=== PATIENT | female | born 1940 | race Caucasian/White ===

== ENCOUNTER 2016-08-07 06:17 | Inpatient (IN) | payer MEDICARE, OTHER ==
[~2016-08-07] VITALS: Ht 160 cm; Wt 59.0 kg
[~2016-08-07 06:17] MED LIST: LOSA25TA4 PO
--- NOTE | 2016-08-07 06:41 | PHYS DOC ---
Past Medical History Past Medical History: Asthma, Other Additional Past Medical Histor: RESTLESS LEG Past Surgical History: Hysterectomy, Other Additional Past Surgical Histo: ANKLE Alcohol Use: Occasionally Drug Use: None Adult General Chief Complaint Chief Complaint: DYSPNEA/RESPIRATOY DISTRESS HPI HPI Patient is a 76 year old female who presents with complaint of severe shortness of breath. Patient symptoms have been worsening over the past 2 weeks. Patient awoke with severe symptoms this morning. Patient tried albuterol with no improvement. Patient has history of COPD. Patient denies any recent fevers. Patient has had persistent cough associated with shortness of breath. Patient was given DuoNeb treatment in route by EMS. Patient states that she developed diffuse chest pain shortly after receiving the treatment. Patient denies any nausea, vomiting, abdominal pain. Review of Systems Review of Systems Constitutional: Denies fever or chills [] Eyes: Denies change in visual acuity, redness, or eye pain [] HENT: Denies nasal congestion or sore throat [] Respiratory: Shortness of breath, cough [] Cardiovascular: Chest pain, no murmur [] GI: Denies abdominal pain, nausea, vomiting, bloody stools or diarrhea [] : Denies dysuria or hematuria [] Musculoskeletal: Denies back pain or joint pain [] Integument: Denies rash or skin lesions [] Neurologic: Denies headache, focal weakness or sensory changes [] Current Medications Current Medications Current Medications Medications (Trade) Dose Ordered Sig/Jennifer Start Time Stop Time Status Last Admin Dose Admin Acetaminophen (Tylenol) 650 mg PRN Q4HRS PRN 08/07/16 07:00 08/08/16 06:59 Albuterol/ Ipratropium (Duoneb) 3 ml RTQID 08/07/16 08:00 08/08/16 07:59 Lorazepam (Ativan) 1 mg 1X ONCE 08/07/16 07:15 08/07/16 07:16 DC 08/07/16 06:56 1 MG Methylprednisolone Sodium Succinate (Solu-Medrol 40mg Vial) 60 mg Q6HRS 08/07/16 12:00 Methylprednisolone Sodium Succinate (Solu-Medrol 125mg Vial) 125 mg 1X ONCE 08/07/16 07:00 08/07/16 07:01 DC 08/07/16 06:47 125 MG Ondansetron HCl 4 mg 4 mg PRN Q8HRS PRN 08/07/16 07:00 08/08/16 06:59 Sodium Chloride (Iv Sodium Chloride 0.9% 1000ml Bag) 1,000 ml @ 100 mls/hr Q10H 08/07/16 07:00 08/08/16 06:59 Allergies Allergies Allergies Coded Allergies Type Severity Reaction Last Updated Verified Penicillins Allergy Intermediate 12/27/13 No Sulfa (Sulfonamide Antibiotics) Allergy Intermediate 12/27/13 No Physical Exam Physical Exam Constitutional: Alert, afebrile, appears in moderate to severe respiratory distress. [] HENT: Normocephalic, atraumatic, bilateral external ears normal, oropharynx moist, no oral exudates, nose normal. [] Eyes: PERRLA, EOMI, conjunctiva normal, no discharge. [] Neck: Normal range of motion, no tenderness, supple, no stridor. [] Cardiovascular: Tachycardia, normal rhythm, no murmur [] Lungs & Thorax: Accessory muscle usage present, prolonged expiratory phase, expiratory wheezes bilaterally, no rales [] Abdomen: Bowel sounds normal, soft, no tenderness, no masses, no pulsatile masses. [] Skin: Warm, dry, no erythema, no rash. [] Back: No tenderness, no CVA tenderness. [] Extremities: No tenderness, no cyanosis, no clubbing, ROM intact, no edema. [] Neurologic: Alert and oriented X 3, normal motor function, normal sensory function, no focal deficits noted. [] Current Patient Data Vital Signs Vital Signs Date Time Temp Pulse Resp B/P Pulse Ox O2 Delivery O2 Flow Rate FiO2 08/07/16 06:37 100 BiPAP/CPAP 08/07/16 06:17 97.6 121 32 151/104 97.6 Lab Values Laboratory Tests Test 08/07/16 06:20 08/07/16 06:48 White Blood Count 7.0x10^3/uL (4.0-11.0) Red Blood Count 3.76x10^6/uL (3.50-5.40) Hemoglobin 12.4g/dL (12.0-15.5) Hematocrit 36.8% (36.0-47.0) Mean Corpuscular Volume 98fL (79-100) Mean Corpuscular Hemoglobin 33pg (25-35) Mean Corpuscular Hemoglobin Concent 34g/dL (31-37) Red Cell Distribution Width 14.6% (11.5-14.5) H Platelet Count 327x10^3/uL (140-400) Neutrophils (%) (Auto) 37% (31-73) Lymphocytes (%) (Auto) 33% (24-48) Monocytes (%) (Auto) 13% (0-9) H Eosinophils (%) (Auto) 15% (0-3) H Basophils (%) (Auto) 1% (0-3) Neutrophils # (Auto) 2.6x10^3uL (1.8-7.7) Lymphocytes # (Auto) 2.3x10^3/uL (1.0-4.8) Monocytes # (Auto) 0.9x10^3/uL (0.0-1.1) Eosinophils # (Auto) 1.1x10^3/uL (0.0-0.7) H Basophils # (Auto) 0.1x10^3/uL (0.0-0.2) Platelet Estimate Pending Sodium Level 143mmol/L (136-145) Potassium Level 4.0mmol/L (3.5-5.1) Chloride Level 105mmol/L (98-107) Carbon Dioxide Level 29mmol/L (21-32) Anion Gap 9 (6-14) Blood Urea Nitrogen 23mg/dL (7-20) H Creatinine 0.8mg/dL (0.6-1.0) Estimated GFR (Cockcroft-Gault) 69.4 BUN/Creatinine Ratio 29 (6-20) H Glucose Level 149mg/dL (70-99) H Calcium Level 9.2mg/dL (8.5-10.1) Total Bilirubin 0.3mg/dL (0.2-1.0) Aspartate Amino Transferase (AST) 20U/L (15-37) Alanine Aminotransferase (ALT) 27U/L (14-59) Alkaline Phosphatase 83U/L (46-116) Creatine Kinase 101U/L (26-192) Creatine Kinase MB (Mass) 2.0ng/mL (0.0-3.6) Creatine Kinase MB Relative Index 2.0% (0-4) Troponin I Quantitative 0.028ng/mL (0.000-0.055) GT-Auw-M-Type Natriuretic Peptide 26pg/mL (0-449) Total Protein 6.8g/dL (6.4-8.2) Albumin 3.5g/dL (3.4-5.0) Albumin/Globulin Ratio 1.1 (1.0-1.7) Influenza Type A Antigen Negative (NEGATIVE) Influenza Type B Antigen Negative (NEGATIVE) O2 Saturation 98% (92-99) Arterial Blood pH 7.39 (7.35-7.45) Arterial Blood pCO2 at Patient Temp 38mmHg (35-46) Arterial Blood pO2 at Patient Temp 151mmHg (65-108) H Arterial Blood HCO3 23mmol/L (21-28) Arterial Blood Base Excess -2mmol/L (-3-3) FiO2 35 Laboratory Tests 08/07/16 06:20 Laboratory Tests 08/07/16 06:20 EKG EKG Interpreted by me: Heart rate 122, sinus tachycardia, normal intervals, normal axis, no acute ST/T-wave abnormalities present [] Radiology/Procedures Radiology/Procedures [facility] [address] [place] [address] IMAGING REPORT Signed PATIENT: NASIR ESCALONA ACCOUNT: [id number] : 1940 LOCATION: ER AGE: 76 SEX: F EXAM STATUS: REG ER ORD. PHYSICIAN: OFE BERNAL MD REASON: chest pain, shortness of breath PROCEDURE: PORTABLE CHEST 1V Portable chest, 08/07/2016: History: Chest pain, shortness of breath The heart size and pulmonary vascularity are normal. There are minimal bilateral apical pleural-parenchymal opacities compatible scarring. No acute infiltrate is seen. There is no evidence of pleural fluid. The bony structures are demineralized. IMPRESSION: No acute cardiopulmonary abnormality is detected. DICTATED and SIGNED BY: ABDIRAHMAN TOMPKINS MD DATE: 08/07/16 0704 CC: MATTHEW BUCK; OFE BERNAL MD ~ [] Course & Med Decision Making Course & Med Decision Making Pertinent Labs and Imaging studies reviewed. (See chart for details) The patient continued to display increased work of breathing on arrival with fatigability. The patient was started on BiPAP therapy which significantly improved work of breathing. Patient's x-rays do not show evidence of pneumonia. The patient appears to be in acute on chronic respiratory failure secondary to COPD exacerbation. Patient will be admitted for further treatment in hospital. I spoke with Dr. Daniels who accepted care patient in hospital. Critical care time excluding procedures: 40 minutes Dragon Disclaimer Dragon Disclaimer This electronic medical record was generated, in whole or in part, using a voice recognition dictation system. Departure Departure Impression: Primary Impression: Acute on chronic respiratory failure Disposition: ADMITTED INPATIENT Admitting Physician: Alexander Daniels Condition: GUARDED Referrals: MATTHEW BUCK (PCP) Problem Qualifiers Primary Impression: Acute on chronic respiratory failure Respiratory failure complication: hypoxia Qualified Code: J96.21 - Acute and chronic respiratory failure with hypoxia OFE BERNAL MD Aug 07, 2016 06:40
[2016-08-07 06:45] LABS: BASO # 0.1 x10^3/uL (0.0-0.2); BASO % 1 % (0-3); EOS % 15 % (0-3); HEMATOCRIT 36.8 % (36.0-47.0); HEMOGLOBIN 12.4 g/dL (12.0-15.5); LYMPH # 2.3 x10^3/uL (1.0-4.8); LYMPH % 33 % (24-48); MEAN CORPUSCULAR HEMOGLOBIN 33 pg (25-35); MEAN CORPUSCULAR HGB CONC 34 g/dL (31-37); MEAN CORPUSCULAR VOLUME 98 fL (79-100); MONO % 13 % (0-9); NEUT % 37 % (31-73); PLATELET COUNT 327 x10^3/uL (140-400); RED BLOOD COUNT 3.76 x10^6/uL (3.50-5.40); RED CELL DISTRIBUTION WIDTH 14.6 % (11.5-14.5)
[2016-08-07 06:57] LABS: CALCIUM 9.2 mg/dL (8.5-10.1); CREATININE 0.8 mg/dL (0.6-1.0); GFR 69.4
[2016-08-07 06:58] LABS: HCO3 ABG 23 mmol/L (21-28); PCO2 ABG 38 mmHg (35-46); PH ABG 7.39 (7.35-7.45); PO2 ABG 151 mmHg (65-108); SAT O2 ABG 98 % (92-99)
[2016-08-07 07:00] LABS: FIO2 ABG 35
[2016-08-07] MEDS ORDERED: ACETAMINOPHEN 325 MG TABLET. PO PRN ×2 (07:00→09:45)
[2016-08-07] MEDS ORDERED: methylPREDNISolone SOD SUCC PF 125 MG/2 ML VIAL. IV ONE (07:00)
[2016-08-07] MEDS ORDERED: IV NORMAL SALINE 1000ML BAG 1,000 ML IV SCH ×2 (07:00)
[2016-08-07] MEDS ORDERED: ONDANSETRON PF 4 MG/2 ML VIAL. IV PRN ×2 (07:00→09:45)
[2016-08-07] MEDS ORDERED: IPRATRPIUM/ALBUTEROL 0.5/2.5MG 3 ML NEBU. NEB ONE (07:00)
[2016-08-07 07:01] LABS: ALBUMIN 3.5 g/dL (3.4-5.0); ALBUMIN/GLOBULIN RATIO 1.1 (1.0-1.7); TOTAL BILIRUBIN 0.3 mg/dL (0.2-1.0); TOTAL PROTEIN 6.8 g/dL (6.4-8.2)
--- NOTE | 2016-08-07 07:08 | RAD ---
Portable chest, 08/07/2016: History: Chest pain, shortness of breath The heart size and pulmonary vascularity are normal. There are minimal bilateral apical pleural-parenchymal opacities compatible scarring. No acute infiltrate is seen. There is no evidence of pleural fluid. The bony structures are demineralized. IMPRESSION: No acute cardiopulmonary abnormality is detected.
[2016-08-07 07:14] LABS: OBC FLU VALID
[2016-08-07] MEDS ORDERED: LORAZEPAM 2 MG/ML VIAL IV ONE (07:15)
[2016-08-07] MEDS: IPRATRPIUM/ALBUTEROL 0.5/2.5MG 3 ML NEBU. NEB SCH ×7 (08:00→20:26)
--- NOTE | 2016-08-07 09:20 | ACF ---
Admit Criteria Forms Admit Criteria Forms Admit Criteria Forms RESPIRATORY FAILURE GRG Clinical Indications for Admission to Inpatient Care (Place 'X' for any and all applicable criteria): Hospital admission is needed for appropriate care of the patient because of acute respiratory failure or insufficiency as indicated by ANY ONE of the following(1)(2)(3)(4)(5)(6)(7)(8): [ X]I. Mechanical ventilation needed (acute invasive or noninvasive) [ ]II. Severe ventilation deficit as indicated by ANY ONE of the following (9) [ ]a) Respiratory acidosis (pH less than 7.32 and partial pressure of carbon dioxide greater than 40 mm Hg (5.3 kPa)) [ ]b) Partial pressure of carbon dioxide greater than 44 mm Hg (5.9 kPa ) (new) [ ]c) Airflow measurements less than 25% of predicted (eg, peak expiratory flow rate less than 100 L/minute) [ ]d) Forced vital capacity less than 15 mL/kg of ideal body weight, or 50% decrease in vital capacity from baseline [ ]III. Noncardiac pulmonary edema not resolving with rapid emergency treatment (8) [ ]IV. Severe respiratory distress as indicated by ANY ONE of the following: [ ]a) Severe tachypnea (respiratory rate greater than 30, greater than 45 for 6-month-old, greater than 60 for ) [ ]b) Severe hypoxemia (partial pressure of oxygen less than 50 mm Hg ( 6.7 kPa) on greater than 50% oxygen or partial pressure of oxygen to FIO2 ratio less than 200) [ ]c) Mental status deterioration from respiratory disease [ ]V. Airway obstruction or inadequate protection [A](10)(11) The original [employer] content created by [employer] has been revised. The portions of the content which have been revised are identified through the use of italic text or in bold, and [employer] has neither reviewed nor approved the modified material. All other unmodified content is copyright [employer]. Please see references footnoted in the original [employer] edition 2016 CHALO ARAUZ Aug 07, 2016 09:20
[2016-08-07 09:28] LABS: % BASOS 1 % (0-3); % EOS 20 % (0-5)
[2016-08-07 09:29] LABS: PLT ESTIMATE ADEQUATE (ADEQUATE)
--- NOTE | 2016-08-07 09:29 | EKG ---
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
[2016-08-07] MEDS ORDERED: hydrALAZINE 20 MG/ML VIAL. IVP PRN (09:45)
--- NOTE | 2016-08-07 11:26 | PDOC ---
Provider Note Provider Note [id number] acute resp fail ae of asthma acute bronchitis see orders MICHELLE FERNANDEZ MD Aug 07, 2016 11:25
[2016-08-07 11:36] VITALS: BP 126/69
[2016-08-07] MEDS: BUDESONIDE 0.5 MG/2 ML NEBU NEB SCH ×2 (12:27→20:26)
[2016-08-07] MEDS: PANTOPRAZOLE 40 MG TABLET. PO SCH (12:40)
[2016-08-07] MEDS: ENOXAPARIN 40 MG/0.4 ML DISP.SYRIN. SQ SCH (12:41)
[2016-08-07] MEDS: methylPREDNISolone SOD SUCC PF 40 MG/ML VIAL. IV SCH ×2 (12:42→18:22)
--- NOTE | 2016-08-07 12:46 | CONS ---
DATE OF CONSULTATION: 08/07/2016 I was asked to see this 76-year-old lady for acute respiratory failure, acute exacerbation of asthma. HISTORY OF PRESENT ILLNESS: She is a lifelong nonsmoker. She has had asthma, but has not been on inhalers. She has used her sister's nebulizer machine. She has had sob since May, but has had increased shortness of breath for the past couple of days. She has increased cough with yellow sputum production. She has nasal congestion. She denies fever or chills. She has had wheezing. She has had chest tightness. She denies gastroesophageal reflux symptoms. PAST MEDICAL HISTORY: Asthma/COPD. ALLERGIES: PENICILLIN AND SULFA. MEDICATIONS: Currently, she is on albuterol and Atrovent nebulizer and Solu-Medrol 60 mg every 6 hours. SOCIAL HISTORY: She does not smoke. FAMILY HISTORY: Positive for hypertension. REVIEW OF SYSTEMS: As mentioned above. Other systems are otherwise negative. PHYSICAL EXAMINATION: GENERAL: This is an elderly lady. VITAL SIGNS: Her O2 saturation is 96%, respiratory rate 24, heart rate 94, blood pressure 126/74, temperature 97.6. HEENT: Normocephalic, atraumatic. Pupils equal, round, reactive to light. Throat is clear. Nose: There is inflamed mucosa. NECK: There is no JVD, lymphadenopathy or thyromegaly. CARDIOVASCULAR: Regular rate and rhythm. PMI is nondisplaced. CHEST: Inspection is normal. LUNGS: There is end expiratory wheezing, dullness at the bases. ABDOMEN: Soft. Bowel sounds are good. There is no mass. EXTREMITIES: There is no edema. LYMPHATICS: There is no lymphadenopathy. SKIN: Chronic changes. NEUROLOGIC: Alert and oriented x 3. LABORATORY DATA: I reviewed the following lab data: Chest x-ray did not show infiltrate. WBC 7, hemoglobin 12.4, platelets 327. ABG: pH 7.39, pCO2 of 38, pO2 151 on BiPAP. Sodium 143, potassium 4, chloride 105, CO2 of 29, glucose 149, BUN 23, creatinine 0.8, troponin 0.028. BNP 26. Influenza A and B negative. IMPRESSION: 1. Acute respiratory failure, multifactorial in etiology. 2. Acute exacerbation of asthma. 3. Acute bronchitis. 4. Nonsmoker. 5. Allergic rhinitis. PLAN AND RECOMMENDATIONS: 1. Titrate FiO2 to keep O2 saturation 92%. 2. Bronchodilator q.i.d. on p.r.n. shortness of breath. 3. Add inhaled corticosteroid. 4. Continue Solu-Medrol 60 mg IV every 6 hours. 5. BiPAP p.r.n. 6. Lovenox for DVT prophylaxis. 7. Protonix for stress ulcer prophylaxis. 8. Start Levaquin. 9. Monitor respiratory status very closely. 10. Titrate FiO2 to keep O2 saturation 92%. 11. Add Singulair. 12. The findings and recommendations were discussed with the patient and RN. The patient understood and agreed to proceed with the plan. I have answered all of her questions. MICHELLE FERNANDEZ M.D. DR: Prashanth JOB#: [id number] / [id number] THOMAS
[2016-08-07 15:00] VITALS: BP 116/64
--- NOTE | 2016-08-07 16:06 | PDOC1 ---
History and Physical Identification/Chief Complaint Chief Complaint SOB Problems: History of Present Illness History of Present Illness A 76 female with hx of Asthma, non smoker presented to the ER with worsening sob for couple of weeks, but for last few days her sob so severe, she couldn't breath at all. She was using some inhalers, but they are not helping her. She denies any exposure to smoke, but she had some cough, which is making her breathing further difficult. She denies any fever or chills. When she was started on BIPAP this AM, her symptoms improved. Past Medical History Past Medical History Past Medical History: Asthma, RESTLESS LEG Past Surgical History: Hysterectomy, Other Additional Past Surgical Histo: ANKLE Alcohol Use: Occasionally, no smoking Drug Use: None FH: HTN Social History Smoke: No ALCOHOL: rare Drugs: None Current Problem List Problem List Problems Medical Problems: (1) Acute on chronic respiratory failure Status: Acute Current Medications Current Medications Current Medications Medications (Trade) Dose Ordered Sig/Jennifer Start Time Stop Time Status Last Admin Dose Admin Acetaminophen (Tylenol) 325 mg PRN Q6HRS PRN 08/07/16 09:45 Acetaminophen/ Hydrocodone Bitart (Lortab 5/325) 1 tab PRN Q6HRS PRN 08/07/16 09:45 Albuterol Sulfate (Ventolin Neb Soln) 2.5 mg PRN Q4HRS PRN 08/07/16 09:45 Albuterol/ Ipratropium (Duoneb) 3 ml RTQID 08/07/16 12:00 08/07/16 16:04 3 ML Budesonide (Pulmicort) 0.5 mg RTBID 08/07/16 12:00 08/07/16 12:27 0.5 MG Enoxaparin Sodium (Lovenox 40mg Syringe) 40 mg Q24H 08/07/16 12:00 08/07/16 12:41 40 MG Hydralazine HCl (Apresoline) 10 mg PRN Q4HRS PRN 08/07/16 09:45 Levofloxacin/ Dextrose (LEVAQUIN 500mg PREMIX) 100 ml @ 100 mls/hr Q24H 08/07/16 12:00 08/07/16 12:41 100 MLS/HR Lorazepam (Ativan) 1 mg 1X ONCE 08/07/16 07:15 08/07/16 07:16 DC 08/07/16 06:56 1 MG Methylprednisolone Sodium Succinate (Solu-Medrol 40mg Vial) 60 mg Q6HRS 08/07/16 12:00 08/07/16 12:42 60 MG Methylprednisolone Sodium Succinate (Solu-Medrol 125mg Vial) 125 mg 1X ONCE 08/07/16 07:00 08/07/16 07:01 DC 08/07/16 06:47 125 MG Montelukast Sodium 10 mg 10 mg QHS 08/07/16 21:00 Ondansetron HCl (Zofran) 4 mg PRN Q8HRS PRN 08/07/16 09:45 Ondansetron HCl 4 mg 4 mg PRN Q8HRS PRN 08/07/16 07:00 08/07/16 11:28 DC Pantoprazole Sodium (Protonix) 40 mg DAILYAC 08/07/16 11:30 08/07/16 12:40 40 MG Sodium Chloride (Iv Sodium Chloride 0.9% 1000ml Bag) 1,000 ml @ 100 mls/hr Q10H 08/07/16 07:00 08/08/16 06:59 08/07/16 12:40 100 MLS/HR Allergies Allergies Allergies Coded Allergies Type Severity Reaction Last Updated Verified Penicillins Allergy Intermediate 12/27/13 No Sulfa (Sulfonamide Antibiotics) Allergy Intermediate 12/27/13 No ROS Review of System CONSTITUTIONAL: No fever or chills EYES: No recent changes SKIN: No rash or itching CARDIOVASCULAR: No chest pain, syncope, palpitations, or edema RESPIRATORY: SOB or cough GASTROINTESTINAL: No nausea, vomiting or abdominal pain NEUROLOGICAL: No headaches or weakness ENDOCRINE: No cold or heat intolerance GENITOURINARY: No urgency or frequency of urination MUSCULOSKELETAL: No back pain or joint pain LYMPHATICS: No enlarged lymph nodes PSYCHIATRIC: No anxiety or depression Physical Exam Physical Exam GEN.: apparent distress. Alert and oriented. sitting in chair. HEENT: Head is normocephalic, atraumatic NECK: Supple. NO JVD LUNGS: Wheezing, severe HEART: RRR, S1, S2 present. Peripheral pulses intact ABDOMEN: Soft, nontender. Positive bowel sounds. EXTREMITIES: Without any cyanosis. NEUROLOGIC: Normal speech, normal tone PSYCHIATRIC: Normal affect, normal mood. SKIN: No visible skin lesions Vitals Vitals Vital Signs Date Time Temp Pulse Resp B/P Pulse Ox O2 Delivery O2 Flow Rate FiO2 08/07/16 12:32 98 Nasal Cannula 2.0 08/07/16 11:36 97.7 107 18 126/69 97.7 Labs Labs Laboratory Tests Test 08/07/16 06:20 08/07/16 06:48 White Blood Count 7.0x10^3/uL (4.0-11.0) Red Blood Count 3.76x10^6/uL (3.50-5.40) Hemoglobin 12.4g/dL (12.0-15.5) Hematocrit 36.8% (36.0-47.0) Mean Corpuscular Volume 98fL (79-100) Mean Corpuscular Hemoglobin 33pg (25-35) Mean Corpuscular Hemoglobin Concent 34g/dL (31-37) Red Cell Distribution Width 14.6% (11.5-14.5) Platelet Count 327x10^3/uL (140-400) Neutrophils (%) (Auto) 37% (31-73) Lymphocytes (%) (Auto) 33% (24-48) Monocytes (%) (Auto) 13% (0-9) Eosinophils (%) (Auto) 15% (0-3) Basophils (%) (Auto) 1% (0-3) Neutrophils # (Auto) 2.6x10^3uL (1.8-7.7) Lymphocytes # (Auto) 2.3x10^3/uL (1.0-4.8) Monocytes # (Auto) 0.9x10^3/uL (0.0-1.1) Eosinophils # (Auto) 1.1x10^3/uL (0.0-0.7) Basophils # (Auto) 0.1x10^3/uL (0.0-0.2) Segmented Neutrophils % 42% (35-66) Band Neutrophils % 1% (0-9) Lymphocytes % 26% (24-48) Monocytes % 10% (0-10) Eosinophils % 20% (0-5) Basophils % 1% (0-3) Platelet Estimate Adequate (ADEQUATE) Sodium Level 143mmol/L (136-145) Potassium Level 4.0mmol/L (3.5-5.1) Chloride Level 105mmol/L (98-107) Carbon Dioxide Level 29mmol/L (21-32) Anion Gap 9 (6-14) Blood Urea Nitrogen 23mg/dL (7-20) Creatinine 0.8mg/dL (0.6-1.0) Estimated GFR (Cockcroft-Gault) 69.4 BUN/Creatinine Ratio 29 (6-20) Glucose Level 149mg/dL (70-99) Calcium Level 9.2mg/dL (8.5-10.1) Total Bilirubin 0.3mg/dL (0.2-1.0) Aspartate Amino Transf (AST/SGOT) 20U/L (15-37) Alanine Aminotransferase (ALT/SGPT) 27U/L (14-59) Alkaline Phosphatase 83U/L (46-116) Creatine Kinase 101U/L (26-192) Creatine Kinase MB (Mass) 2.0ng/mL (0.0-3.6) Creatine Kinase MB Relative Index 2.0% (0-4) Troponin I Quantitative 0.028ng/mL (0.000-0.055) OV-Ipe-O-Type Natriuretic Peptide 26pg/mL (0-449) Total Protein 6.8g/dL (6.4-8.2) Albumin 3.5g/dL (3.4-5.0) Albumin/Globulin Ratio 1.1 (1.0-1.7) Influenza Type A Antigen Negative (NEGATIVE) Influenza Type B Antigen Negative (NEGATIVE) O2 Saturation 98% (92-99) Arterial Blood pH 7.39 (7.35-7.45) Arterial Blood pCO2 at Patient Temp 38mmHg (35-46) Arterial Blood pO2 at Patient Temp 151mmHg (65-108) Arterial Blood HCO3 23mmol/L (21-28) Arterial Blood Base Excess -2mmol/L (-3-3) FiO2 35 Laboratory Tests Test 08/07/16 06:20 08/07/16 06:48 White Blood Count 7.0x10^3/uL (4.0-11.0) Red Blood Count 3.76x10^6/uL (3.50-5.40) Hemoglobin 12.4g/dL (12.0-15.5) Hematocrit 36.8% (36.0-47.0) Mean Corpuscular Volume 98fL (79-100) Mean Corpuscular Hemoglobin 33pg (25-35) Mean Corpuscular Hemoglobin Concent 34g/dL (31-37) Red Cell Distribution Width 14.6% (11.5-14.5) Platelet Count 327x10^3/uL (140-400) Neutrophils (%) (Auto) 37% (31-73) Lymphocytes (%) (Auto) 33% (24-48) Monocytes (%) (Auto) 13% (0-9) Eosinophils (%) (Auto) 15% (0-3) Basophils (%) (Auto) 1% (0-3) Neutrophils # (Auto) 2.6x10^3uL (1.8-7.7) Lymphocytes # (Auto) 2.3x10^3/uL (1.0-4.8) Monocytes # (Auto) 0.9x10^3/uL (0.0-1.1) Eosinophils # (Auto) 1.1x10^3/uL (0.0-0.7) Basophils # (Auto) 0.1x10^3/uL (0.0-0.2) Segmented Neutrophils % 42% (35-66) Band Neutrophils % 1% (0-9) Lymphocytes % 26% (24-48) Monocytes % 10% (0-10) Eosinophils % 20% (0-5) Basophils % 1% (0-3) Platelet Estimate Adequate (ADEQUATE) Sodium Level 143mmol/L (136-145) Potassium Level 4.0mmol/L (3.5-5.1) Chloride Level 105mmol/L (98-107) Carbon Dioxide Level 29mmol/L (21-32) Anion Gap 9 (6-14) Blood Urea Nitrogen 23mg/dL (7-20) Creatinine 0.8mg/dL (0.6-1.0) Estimated GFR (Cockcroft-Gault) 69.4 BUN/Creatinine Ratio 29 (6-20) Glucose Level 149mg/dL (70-99) Calcium Level 9.2mg/dL (8.5-10.1) Total Bilirubin 0.3mg/dL (0.2-1.0) Aspartate Amino Transf (AST/SGOT) 20U/L (15-37) Alanine Aminotransferase (ALT/SGPT) 27U/L (14-59) Alkaline Phosphatase 83U/L (46-116) Creatine Kinase 101U/L (26-192) Creatine Kinase MB (Mass) 2.0ng/mL (0.0-3.6) Creatine Kinase MB Relative Index 2.0% (0-4) Troponin I Quantitative 0.028ng/mL (0.000-0.055) OE-Zof-X-Type Natriuretic Peptide 26pg/mL (0-449) Total Protein 6.8g/dL (6.4-8.2) Albumin 3.5g/dL (3.4-5.0) Albumin/Globulin Ratio 1.1 (1.0-1.7) Influenza Type A Antigen Negative (NEGATIVE) Influenza Type B Antigen Negative (NEGATIVE) O2 Saturation 98% (92-99) Arterial Blood pH 7.39 (7.35-7.45) Arterial Blood pCO2 at Patient Temp 38mmHg (35-46) Arterial Blood pO2 at Patient Temp 151mmHg (65-108) Arterial Blood HCO3 23mmol/L (21-28) Arterial Blood Base Excess -2mmol/L (-3-3) FiO2 35 VTE Prophylaxis Ordered VTE Prophylaxis Devices: Yes VTE Pharmacological Prophylaxi: Yes Assessment/Plan Assessment/Plan Acute Asthma exacerbation. Severe Respiratory Failure Eosinophilia Plan IV Solumedrol TID Singulair Pulmicort PRN Duonebs IV Levaquin PRN BIPAP Pulmonology consultation Monitor labs Transfer to stepdown for worsening respiratory distress Prognosis guarded. VALERIA DONG MD Aug 07, 2016 16:06
[2016-08-07] MEDS ORDERED: LEVO50TA5 PO (16:27)
[2016-08-07] MEDS: ALBUTEROL SULFATE 2.5 MG/3 ML NEBU. NEB PRN (18:30)
[2016-08-07 19:00] VITALS: BP 125/67
[2016-08-07] MEDS: HYDROCODONE/APAP 5/325MG TABLET. PO PRN (20:10)
[2016-08-07] MEDS ORDERED: PNEUMOC CONJ VACC 23-VALENT 0.5 ML VIAL. VAX IM ONE (20:30)
[2016-08-07] MEDS ORDERED: BENZOCAINE/MENTHOL LOZENGE. PO PRN (21:00)
[2016-08-07] MEDS: MONTELUKAST SODIUM 10 MG TABLET. PO SCH (21:24)
[2016-08-07 23:00] VITALS: BP 120/68
[2016-08-08 03:00] VITALS: BP 120/65
[2016-08-08] MEDS: IV NORMAL SALINE 1000ML BAG 1,000 ML IV SCH ×2 (03:00→03:53)
[2016-08-08] MEDS: ALBUTEROL SULFATE 2.5 MG/3 ML NEBU. NEB PRN ×2 (04:04→10:02)
[2016-08-08 04:39] LABS: BASO % 0 % (0-3); EOS % 0 % (0-3); HEMATOCRIT 34.3 % (36.0-47.0); HEMOGLOBIN 11.5 g/dL (12.0-15.5); LYMPH # 0.7 x10^3/uL (1.0-4.8); LYMPH % 17 % (24-48); MEAN CORPUSCULAR HEMOGLOBIN 33 pg (25-35); MEAN CORPUSCULAR HGB CONC 34 g/dL (31-37); MEAN CORPUSCULAR VOLUME 98 fL (79-100); MONO % 5 % (0-9); NEUT % 78 % (31-73); PLATELET COUNT 311 x10^3/uL (140-400); RED BLOOD COUNT 3.52 x10^6/uL (3.50-5.40); RED CELL DISTRIBUTION WIDTH 14.3 % (11.5-14.5); WHITE BLOOD COUNT 4.3 x10^3/uL (4.0-11.0)
[2016-08-08 05:01] LABS: CALCIUM 8.8 mg/dL (8.5-10.1); CREATININE 0.7 mg/dL (0.6-1.0); GFR 80.9; POTASSIUM 4.4 mmol/L (3.5-5.1)
[2016-08-08] MEDS: methylPREDNISolone SOD SUCC PF 40 MG/ML VIAL. IV SCH ×5 (06:00→23:44)
[2016-08-08 07:00] VITALS: BP 121/54
[2016-08-08] MEDS: IPRATRPIUM/ALBUTEROL 0.5/2.5MG 3 ML NEBU. NEB SCH ×4 (07:37→21:13)
[2016-08-08] MEDS: BUDESONIDE 0.5 MG/2 ML NEBU NEB SCH ×2 (07:37→21:13)
[2016-08-08] MEDS: PANTOPRAZOLE 40 MG TABLET. PO SCH (09:12)
--- NOTE | 2016-08-08 09:36 | PDOC ---
PROGRESS NOTES Chief Complaint Chief Complaint Acute Asthma exacerbation Possible exposure to animal dander in home, cats and Dogs. Severe Respiratory Failure Eosinophilia Plan IV Solumedrol TID Singulair Pulmicort PRN Duonebs IV Levaquin PRN BIPAP Pulmonology consultation Monitor labs Transfer to stepdown for worsening respiratory distress Prognosis guarded. History of Present Illness History of Present Illness breathing better. no fever Vitals Vitals Vital Signs Date Time Temp Pulse Resp B/P Pulse Ox O2 Delivery O2 Flow Rate FiO2 08/08/16 07:41 97 Nasal Cannula 2.0 08/08/16 07:00 98.0 92 18 121/54 98.0 Physical Exam General: Alert, Oriented X3 Heart: Normal S1, Normal S2, Other (tachycardia. ) Lungs: Wheezing, Other (decreaed BS) Abdomen: Normal bowel sounds, Soft Extremities: No clubbing Labs LABS Laboratory Tests Test 08/08/16 03:50 White Blood Count 4.3x10^3/uL (4.0-11.0) Red Blood Count 3.52x10^6/uL (3.50-5.40) Hemoglobin 11.5g/dL (12.0-15.5) Hematocrit 34.3% (36.0-47.0) Mean Corpuscular Volume 98fL (79-100) Mean Corpuscular Hemoglobin 33pg (25-35) Mean Corpuscular Hemoglobin Concent 34g/dL (31-37) Red Cell Distribution Width 14.3% (11.5-14.5) Platelet Count 311x10^3/uL (140-400) Neutrophils (%) (Auto) 78% (31-73) Lymphocytes (%) (Auto) 17% (24-48) Monocytes (%) (Auto) 5% (0-9) Eosinophils (%) (Auto) 0% (0-3) Basophils (%) (Auto) 0% (0-3) Neutrophils # (Auto) 3.4x10^3uL (1.8-7.7) Lymphocytes # (Auto) 0.7x10^3/uL (1.0-4.8) Monocytes # (Auto) 0.2x10^3/uL (0.0-1.1) Eosinophils # (Auto) 0.0x10^3/uL (0.0-0.7) Basophils # (Auto) 0.0x10^3/uL (0.0-0.2) Sodium Level 144mmol/L (136-145) Potassium Level 4.4mmol/L (3.5-5.1) Chloride Level 109mmol/L (98-107) Carbon Dioxide Level 26mmol/L (21-32) Anion Gap 9 (6-14) Blood Urea Nitrogen 19mg/dL (7-20) Creatinine 0.7mg/dL (0.6-1.0) Estimated GFR (Cockcroft-Gault) 80.9 Glucose Level 148mg/dL (70-99) Calcium Level 8.8mg/dL (8.5-10.1) Assessment and Plan Assessmemt and Plan Problems Medical Problems: (1) Acute on chronic respiratory failure Status: Acute Problems: Comment Review of Relevant I have reviewed the following items arnulfo (where applicable) has been applied. Labs Laboratory Tests Test 08/07/16 06:20 08/07/16 06:48 08/08/16 03:50 White Blood Count 7.0x10^3/uL (4.0-11.0) 4.3x10^3/uL (4.0-11.0) Red Blood Count 3.76x10^6/uL (3.50-5.40) 3.52x10^6/uL (3.50-5.40) Hemoglobin 12.4g/dL (12.0-15.5) 11.5g/dL (12.0-15.5) Hematocrit 36.8% (36.0-47.0) 34.3% (36.0-47.0) Mean Corpuscular Volume 98fL (79-100) 98fL (79-100) Mean Corpuscular Hemoglobin 33pg (25-35) 33pg (25-35) Mean Corpuscular Hemoglobin Concent 34g/dL (31-37) 34g/dL (31-37) Red Cell Distribution Width 14.6% (11.5-14.5) 14.3% (11.5-14.5) Platelet Count 327x10^3/uL (140-400) 311x10^3/uL (140-400) Neutrophils (%) (Auto) 37% (31-73) 78% (31-73) Lymphocytes (%) (Auto) 33% (24-48) 17% (24-48) Monocytes (%) (Auto) 13% (0-9) 5% (0-9) Eosinophils (%) (Auto) 15% (0-3) 0% (0-3) Basophils (%) (Auto) 1% (0-3) 0% (0-3) Neutrophils # (Auto) 2.6x10^3uL (1.8-7.7) 3.4x10^3uL (1.8-7.7) Lymphocytes # (Auto) 2.3x10^3/uL (1.0-4.8) 0.7x10^3/uL (1.0-4.8) Monocytes # (Auto) 0.9x10^3/uL (0.0-1.1) 0.2x10^3/uL (0.0-1.1) Eosinophils # (Auto) 1.1x10^3/uL (0.0-0.7) 0.0x10^3/uL (0.0-0.7) Basophils # (Auto) 0.1x10^3/uL (0.0-0.2) 0.0x10^3/uL (0.0-0.2) Segmented Neutrophils % 42% (35-66) Band Neutrophils % 1% (0-9) Lymphocytes % 26% (24-48) Monocytes % 10% (0-10) Eosinophils % 20% (0-5) Basophils % 1% (0-3) Platelet Estimate Adequate (ADEQUATE) Sodium Level 143mmol/L (136-145) 144mmol/L (136-145) Potassium Level 4.0mmol/L (3.5-5.1) 4.4mmol/L (3.5-5.1) Chloride Level 105mmol/L (98-107) 109mmol/L (98-107) Carbon Dioxide Level 29mmol/L (21-32) 26mmol/L (21-32) Anion Gap 9 (6-14) 9 (6-14) Blood Urea Nitrogen 23mg/dL (7-20) 19mg/dL (7-20) Creatinine 0.8mg/dL (0.6-1.0) 0.7mg/dL (0.6-1.0) Estimated GFR (Cockcroft-Gault) 69.4 80.9 BUN/Creatinine Ratio 29 (6-20) Glucose Level 149mg/dL (70-99) 148mg/dL (70-99) Calcium Level 9.2mg/dL (8.5-10.1) 8.8mg/dL (8.5-10.1) Total Bilirubin 0.3mg/dL (0.2-1.0) Aspartate Amino Transf (AST/SGOT) 20U/L (15-37) Alanine Aminotransferase (ALT/SGPT) 27U/L (14-59) Alkaline Phosphatase 83U/L (46-116) Creatine Kinase 101U/L (26-192) Creatine Kinase MB (Mass) 2.0ng/mL (0.0-3.6) Creatine Kinase MB Relative Index 2.0% (0-4) Troponin I Quantitative 0.028ng/mL (0.000-0.055) OB-Cfh-V-Type Natriuretic Peptide 26pg/mL (0-449) Total Protein 6.8g/dL (6.4-8.2) Albumin 3.5g/dL (3.4-5.0) Albumin/Globulin Ratio 1.1 (1.0-1.7) Influenza Type A Antigen Negative (NEGATIVE) Influenza Type B Antigen Negative (NEGATIVE) O2 Saturation 98% (92-99) Arterial Blood pH 7.39 (7.35-7.45) Arterial Blood pCO2 at Patient Temp 38mmHg (35-46) Arterial Blood pO2 at Patient Temp 151mmHg (65-108) Arterial Blood HCO3 23mmol/L (21-28) Arterial Blood Base Excess -2mmol/L (-3-3) FiO2 35 Laboratory Tests Test 08/08/16 03:50 White Blood Count 4.3x10^3/uL (4.0-11.0) Red Blood Count 3.52x10^6/uL (3.50-5.40) Hemoglobin 11.5g/dL (12.0-15.5) Hematocrit 34.3% (36.0-47.0) Mean Corpuscular Volume 98fL (79-100) Mean Corpuscular Hemoglobin 33pg (25-35) Mean Corpuscular Hemoglobin Concent 34g/dL (31-37) Red Cell Distribution Width 14.3% (11.5-14.5) Platelet Count 311x10^3/uL (140-400) Neutrophils (%) (Auto) 78% (31-73) Lymphocytes (%) (Auto) 17% (24-48) Monocytes (%) (Auto) 5% (0-9) Eosinophils (%) (Auto) 0% (0-3) Basophils (%) (Auto) 0% (0-3) Neutrophils # (Auto) 3.4x10^3uL (1.8-7.7) Lymphocytes # (Auto) 0.7x10^3/uL (1.0-4.8) Monocytes # (Auto) 0.2x10^3/uL (0.0-1.1) Eosinophils # (Auto) 0.0x10^3/uL (0.0-0.7) Basophils # (Auto) 0.0x10^3/uL (0.0-0.2) Sodium Level 144mmol/L (136-145) Potassium Level 4.4mmol/L (3.5-5.1) Chloride Level 109mmol/L (98-107) Carbon Dioxide Level 26mmol/L (21-32) Anion Gap 9 (6-14) Blood Urea Nitrogen 19mg/dL (7-20) Creatinine 0.7mg/dL (0.6-1.0) Estimated GFR (Cockcroft-Gault) 80.9 Glucose Level 148mg/dL (70-99) Calcium Level 8.8mg/dL (8.5-10.1) Medications Current Medications Sodium Chloride (Iv Sodium Chloride 0.9% 1000ml Bag) 1,000 ml @ 1,000 mls/hr Q1H IV Last administered on 08/07/16 06:47; Start 08/07/16 at 07:00; Stop at 07:59; Status DC Albuterol/ Ipratropium (Duoneb) 3 ml 1X ONCE NEB Last administered on 06:40; Start 08/07/16 at 07:00; Stop 08/07/16 at 07:01; Status DC Methylprednisolone Sodium Succinate (Solu-Medrol 125mg Vial) 125 mg 1X ONCE IV Last administered on 08/07/16 06:47; Start 08/07/16 at 07:00; Stop 08/07/16 at 07:01; Status DC Lorazepam (Ativan) 1 mg 1X ONCE IV Last administered on 08/07/16 06:56; Start 08/07/16 at 07:15; Stop 08/07/16 at 07:16; Status DC Ondansetron HCl 4 mg 4 mg PRN Q8HRS PRN IV NAUSEA/VOMITING; Start 08/07/16 at 07:00; Stop 08/07/16 at 11:28; Status DC Sodium Chloride (Iv Sodium Chloride 0.9% 1000ml Bag) 1,000 ml @ 100 mls/hr Q10H IV Last administered on 08/07/16 12:40; Start 08/07/16 at 07:00; Stop at 16:06; Status DC Acetaminophen (Tylenol) 650 mg PRN Q4HRS PRN PO FEVER Last administered on 08/07 14:28; Start 08/07/16 at 07:00; Stop 08/08/16 at 06:59; Status DC Albuterol/ Ipratropium (Duoneb) 3 ml RTQID NEB ; Start 08/07/16 at 08:00; Stop 08/08/16 at 07:59; Status DC Methylprednisolone Sodium Succinate (Solu-Medrol 40mg Vial) 60 mg Q6HRS IV Last administered on 08/08/16 06:00; Start 08/07/16 at 12:00 Acetaminophen (Tylenol) 325 mg PRN Q6HRS PRN PO MILD PAIN / TEMP; Start at 09:45 Acetaminophen/ Hydrocodone Bitart (Lortab 5/325) 1 tab PRN Q6HRS PRN PO MODERATE TO SEVERE PAIN Last administered on 08/07/16 20:10; Start 08/07/16 at 09:45 Hydralazine HCl (Apresoline) 10 mg PRN Q4HRS PRN IVP ELEVATED BP, SEE COMMENTS ; Start 08/07/16 at 09:45 Ondansetron HCl (Zofran) 4 mg PRN Q8HRS PRN IV NAUSEA/VOMITING; Start 08/07/16 at 09:45 Albuterol Sulfate (Ventolin Neb Soln) 2.5 mg PRN Q4HRS PRN NEB SHORTNESS OF BREATH Last administered on 08/08/16 04:04; Start 08/07/16 at 09:45 Albuterol/ Ipratropium (Duoneb) 3 ml RTQID NEB Last administered on 08/08/16 07:37; Start 08/07/16 at 12:00 Budesonide (Pulmicort) 0.5 mg RTBID NEB Last administered on 08/08/16 07:37; Start 08/07/16 at 12:00 Montelukast Sodium 10 mg 10 mg QHS PO Last administered on 08/07/16 21:24; Start 08/07/16 at 21:00 Levofloxacin/ Dextrose (LEVAQUIN 500mg PREMIX) 100 ml @ 100 mls/hr Q24H IV Last administered on 08/07/16 12:41; Start 08/07/16 at 12:00 Enoxaparin Sodium (Lovenox 40mg Syringe) 40 mg Q24H SQ Last administered on 12:41; Start 08/07/16 at 12:00 Pantoprazole Sodium 40 mg 40 mg DAILYAC PO Last administered on 08/08/16 09:12 ; Start 08/07/16 at 11:30 Sodium Chloride (Iv Sodium Chloride 0.9% 1000ml Bag) 1,000 ml @ 50 mls/hr Q20H IV Last administered on 08/08/16 03:00; Start 08/07/16 at 07:00; Stop at 06:59; Status DC Pneumococcal Polyvalent Vaccine (Pneumovax 23) 0.5 ml ONCE ONCE VAX IM ; Start 08/07/16 at 20:30; Stop 08/07/16 at 20:31; Status DC Throat Lozenges (Cepacol Sore Throat Lozenge) 1 kennedi PRN Q2HRS PRN PO SORE THROAT Last administered on 08/07/16 21:21; Start 08/07/16 at 21:00 Active Scripts Active Reported Levothyroxine Sodium 50 Mcg Tablet 1 Tab PO DAILY Losartan Potassium 25 Mg Tablet 1 Tab PO DAILY Vitals/I & O Vital Sign - Last 24 Hours 08/07/16 08/07/16 08/07/16 08/07/16 09:50 11:36 11:36 11:45 Temp 97.7 97.7 97.7 97.7 Pulse 107 107 Resp 18 18 B/P 126/69 126/69 Pulse Ox 100 98 98 O2 Delivery BiPAP/CPAP Nasal Cannula O2 Flow Rate 2.0 08/07/16 08/07/16 08/07/16 08/07/16 12:32 15:00 16:05 18:31 Temp 97.7 97.7 Pulse 102 Resp 18 B/P 116/64 Pulse Ox 98 96 96 94 O2 Delivery Nasal Cannula Nasal Cannula Nasal Cannula O2 Flow Rate 2.0 2.0 2.0 08/07/16 08/07/16 08/07/16 08/07/16 19:00 20:10 20:10 20:29 Temp 98.1 98.1 Pulse 103 Resp 25 20 B/P 125/67 Pulse Ox 96 96 95 O2 Delivery Nasal Cannula Nasal Cannula Nasal Cannula Nasal Cannula O2 Flow Rate 2.0 2.0 08/07/16 08/07/16 08/08/16 08/08/16 21:10 23:00 03:00 04:05 Temp 97.1 97.8 97.1 97.8 Pulse 99 99 Resp 18 21 20 B/P 120/68 120/65 Pulse Ox 96 98 98 96 O2 Delivery Nasal Cannula Room Air Nasal Cannula Nasal Cannula O2 Flow Rate 2.0 08/08/16 08/08/16 07:00 07:41 Temp 98.0 98.0 Pulse 92 Resp 18 B/P 121/54 Pulse Ox 97 97 O2 Delivery Nasal Cannula Nasal Cannula O2 Flow Rate 2.0 2.0 Intake and Output 08/07/16 08/07/16 08/08/16 15:00 23:00 07:00 Intake Total 300 ml Balance 300 ml VALERIA DONG MD Aug 08, 2016 09:36
[2016-08-08 11:00] VITALS: BP 154/68
--- NOTE | 2016-08-08 11:01 | PDOC ---
PULMONARY PROGRESS NOTES Subjective still has sig sob, has cough, nasal congestion, no pain, used bipap last night Vitals Vital Signs Date Time Temp Pulse Resp B/P Pulse Ox O2 Delivery O2 Flow Rate FiO2 08/08/16 10:04 96 Nasal Cannula 2.0 08/08/16 07:00 98.0 92 18 121/54 98.0 Comments ros as mentioned as above other sys otherwise neg ROS: No Nausea General: Alert HEENT: Other (nc at perrl, throat is clear) Lungs: Wheezing Cardiovascular: S1, S2 Abdomen: Soft, Non-tender Neuro Exam: Alert Extremities: No Edema Skin: Warm Labs Laboratory Tests Test 08/07/16 06:20 08/07/16 06:48 08/08/16 03:50 White Blood Count 7.0x10^3/uL (4.0-11.0) 4.3x10^3/uL (4.0-11.0) Red Blood Count 3.76x10^6/uL (3.50-5.40) 3.52x10^6/uL (3.50-5.40) Hemoglobin 12.4g/dL (12.0-15.5) 11.5g/dL (12.0-15.5) Hematocrit 36.8% (36.0-47.0) 34.3% (36.0-47.0) Mean Corpuscular Volume 98fL (79-100) 98fL (79-100) Mean Corpuscular Hemoglobin 33pg (25-35) 33pg (25-35) Mean Corpuscular Hemoglobin Concent 34g/dL (31-37) 34g/dL (31-37) Red Cell Distribution Width 14.6% (11.5-14.5) 14.3% (11.5-14.5) Platelet Count 327x10^3/uL (140-400) 311x10^3/uL (140-400) Neutrophils (%) (Auto) 37% (31-73) 78% (31-73) Lymphocytes (%) (Auto) 33% (24-48) 17% (24-48) Monocytes (%) (Auto) 13% (0-9) 5% (0-9) Eosinophils (%) (Auto) 15% (0-3) 0% (0-3) Basophils (%) (Auto) 1% (0-3) 0% (0-3) Neutrophils # (Auto) 2.6x10^3uL (1.8-7.7) 3.4x10^3uL (1.8-7.7) Lymphocytes # (Auto) 2.3x10^3/uL (1.0-4.8) 0.7x10^3/uL (1.0-4.8) Monocytes # (Auto) 0.9x10^3/uL (0.0-1.1) 0.2x10^3/uL (0.0-1.1) Eosinophils # (Auto) 1.1x10^3/uL (0.0-0.7) 0.0x10^3/uL (0.0-0.7) Basophils # (Auto) 0.1x10^3/uL (0.0-0.2) 0.0x10^3/uL (0.0-0.2) Segmented Neutrophils % 42% (35-66) Band Neutrophils % 1% (0-9) Lymphocytes % 26% (24-48) Monocytes % 10% (0-10) Eosinophils % 20% (0-5) Basophils % 1% (0-3) Platelet Estimate Adequate (ADEQUATE) Sodium Level 143mmol/L (136-145) 144mmol/L (136-145) Potassium Level 4.0mmol/L (3.5-5.1) 4.4mmol/L (3.5-5.1) Chloride Level 105mmol/L (98-107) 109mmol/L (98-107) Carbon Dioxide Level 29mmol/L (21-32) 26mmol/L (21-32) Anion Gap 9 (6-14) 9 (6-14) Blood Urea Nitrogen 23mg/dL (7-20) 19mg/dL (7-20) Creatinine 0.8mg/dL (0.6-1.0) 0.7mg/dL (0.6-1.0) Estimated GFR (Cockcroft-Gault) 69.4 80.9 BUN/Creatinine Ratio 29 (6-20) Glucose Level 149mg/dL (70-99) 148mg/dL (70-99) Calcium Level 9.2mg/dL (8.5-10.1) 8.8mg/dL (8.5-10.1) Total Bilirubin 0.3mg/dL (0.2-1.0) Aspartate Amino Transf (AST/SGOT) 20U/L (15-37) Alanine Aminotransferase (ALT/SGPT) 27U/L (14-59) Alkaline Phosphatase 83U/L (46-116) Creatine Kinase 101U/L (26-192) Creatine Kinase MB (Mass) 2.0ng/mL (0.0-3.6) Creatine Kinase MB Relative Index 2.0% (0-4) Troponin I Quantitative 0.028ng/mL (0.000-0.055) [id number]-Nja-[id number]-Type Natriuretic Peptide 26pg/mL (0-449) Total Protein 6.8g/dL (6.4-8.2) Albumin 3.5g/dL (3.4-5.0) Albumin/Globulin Ratio 1.1 (1.0-1.7) Influenza Type A Antigen Negative (NEGATIVE) Influenza Type B Antigen Negative (NEGATIVE) O2 Saturation 98% (92-99) Arterial Blood pH 7.39 (7.35-7.45) Arterial Blood pCO2 at Patient Temp 38mmHg (35-46) Arterial Blood pO2 at Patient Temp 151mmHg (65-108) Arterial Blood HCO3 23mmol/L (21-28) Arterial Blood Base Excess -2mmol/L (-3-3) FiO2 35 Laboratory Tests Test 08/08/16 03:50 White Blood Count 4.3x10^3/uL (4.0-11.0) Red Blood Count 3.52x10^6/uL (3.50-5.40) Hemoglobin 11.5g/dL (12.0-15.5) Hematocrit 34.3% (36.0-47.0) Mean Corpuscular Volume 98fL (79-100) Mean Corpuscular Hemoglobin 33pg (25-35) Mean Corpuscular Hemoglobin Concent 34g/dL (31-37) Red Cell Distribution Width 14.3% (11.5-14.5) Platelet Count 311x10^3/uL (140-400) Neutrophils (%) (Auto) 78% (31-73) Lymphocytes (%) (Auto) 17% (24-48) Monocytes (%) (Auto) 5% (0-9) Eosinophils (%) (Auto) 0% (0-3) Basophils (%) (Auto) 0% (0-3) Neutrophils # (Auto) 3.4x10^3uL (1.8-7.7) Lymphocytes # (Auto) 0.7x10^3/uL (1.0-4.8) Monocytes # (Auto) 0.2x10^3/uL (0.0-1.1) Eosinophils # (Auto) 0.0x10^3/uL (0.0-0.7) Basophils # (Auto) 0.0x10^3/uL (0.0-0.2) Sodium Level 144mmol/L (136-145) Potassium Level 4.4mmol/L (3.5-5.1) Chloride Level 109mmol/L (98-107) Carbon Dioxide Level 26mmol/L (21-32) Anion Gap 9 (6-14) Blood Urea Nitrogen 19mg/dL (7-20) Creatinine 0.7mg/dL (0.6-1.0) Estimated GFR (Cockcroft-Gault) 80.9 Glucose Level 148mg/dL (70-99) Calcium Level 8.8mg/dL (8.5-10.1) Medications Active Scripts Medications Dose Route/Sig Days Date Category Levothyroxine Sodium 50 Mcg Tablet 1 Tab PO DAILY 08/07/16 Reported Losartan Potassium 25 Mg Tablet 1 Tab PO DAILY 12/27/13 Reported Comments cxr reviewed, No acute cardiopulmonary abnormality is detected. Impression . IMPRESSION: 1. Acute respiratory failure, multifactorial in etiology. 2. Acute exacerbation of asthma. 3. Acute bronchitis. 4. Nonsmoker. 5. Allergic rhinitis. Plan . PLAN AND RECOMMENDATIONS: 1. Titrate FiO2 to keep O2 saturation 92%. 2. Bronchodilator q.i.d. on p.r.n. shortness of breath. 3. inhaled corticosteroid. 4. Continue Solu-Medrol 60 mg IV every 6 hours. 5. BiPAP p.r.n. 6. Lovenox for DVT prophylaxis. 7. Protonix for stress ulcer prophylaxis. 8. Levaquin. 9. Monitor respiratory status very closely. 10. Titrate FiO2 to keep O2 saturation 92%. 11. Singulair. 12. add flonase The findings and recommendations were discussed with the patient and RN. The patient understood and agreed to proceed with the plan. I have answered all of her questions. MICHELLE FERNANDEZ MD Aug 08, 2016 11:01
[2016-08-08] MEDS: FLUTICASONE 50MCG/NASAL SPRAY 16GM BOTTLE. NS SCH (13:23)
[2016-08-08] MEDS: ENOXAPARIN 40 MG/0.4 ML DISP.SYRIN. SQ SCH (13:24)
[2016-08-08 15:01] VITALS: BP 139/79
[2016-08-08 19:00] VITALS: BP 141/67
[2016-08-08] MEDS: MONTELUKAST SODIUM 10 MG TABLET. PO SCH (21:21)
[2016-08-08 23:00] VITALS: BP 165/95
[2016-08-09] MEDS ORDERED: GUAIFENESIN DM 200MG/20MG 10 ML SYRUP. PO PRN (01:30)
[2016-08-09] MEDS ORDERED: DIPHENHYDRAMINE HCL 25 MG CAPSULE PO PRN (01:30)
[2016-08-09] MEDS: IPRATRPIUM/ALBUTEROL 0.5/2.5MG 3 ML NEBU. NEB SCH ×6 (02:55→23:14)
[2016-08-09 03:00] VITALS: BP 153/77
[2016-08-09] MEDS: methylPREDNISolone SOD SUCC PF 40 MG/ML VIAL. IV SCH ×4 (05:38→23:52)
[2016-08-09] MEDS: BUDESONIDE 0.5 MG/2 ML NEBU NEB SCH ×2 (06:55→20:23)
[2016-08-09 07:00] VITALS: BP 154/88
--- NOTE | 2016-08-09 07:24 | PDOC ---
PROGRESS NOTES Chief Complaint Chief Complaint Acute Asthma exacerbation Possible exposure to animal dander in home, cats and Dogs. Severe Respiratory Failure Eosinophilia Plan IV Solumedrol TID Singulair Pulmicort PRN Duonebs IV Levaquin PRN BIPAP Pulmonology consultation Monitor labs Transfer to stepdown for worsening respiratory distress Prognosis guarded. History of Present Illness History of Present Illness difficult to breath. no fever Vitals Vitals Vital Signs Date Time Temp Pulse Resp B/P Pulse Ox O2 Delivery O2 Flow Rate FiO2 08/09/16 06:55 93 Nasal Cannula 4.0 08/09/16 03:00 97.7 104 20 153/77 97.7 Physical Exam General: Alert, Oriented X3 Heart: Normal S1, Normal S2, Other (tachycardia. ) Lungs: Wheezing Abdomen: Normal bowel sounds, Soft Extremities: No clubbing Assessment and Plan Assessmemt and Plan Problems Medical Problems: (1) Acute on chronic respiratory failure Status: Acute Problems: Comment Review of Relevant I have reviewed the following items arnulfo (where applicable) has been applied. Labs Laboratory Tests Test 08/08/16 03:50 White Blood Count 4.3x10^3/uL (4.0-11.0) Red Blood Count 3.52x10^6/uL (3.50-5.40) Hemoglobin 11.5g/dL (12.0-15.5) Hematocrit 34.3% (36.0-47.0) Mean Corpuscular Volume 98fL (79-100) Mean Corpuscular Hemoglobin 33pg (25-35) Mean Corpuscular Hemoglobin Concent 34g/dL (31-37) Red Cell Distribution Width 14.3% (11.5-14.5) Platelet Count 311x10^3/uL (140-400) Neutrophils (%) (Auto) 78% (31-73) Lymphocytes (%) (Auto) 17% (24-48) Monocytes (%) (Auto) 5% (0-9) Eosinophils (%) (Auto) 0% (0-3) Basophils (%) (Auto) 0% (0-3) Neutrophils # (Auto) 3.4x10^3uL (1.8-7.7) Lymphocytes # (Auto) 0.7x10^3/uL (1.0-4.8) Monocytes # (Auto) 0.2x10^3/uL (0.0-1.1) Eosinophils # (Auto) 0.0x10^3/uL (0.0-0.7) Basophils # (Auto) 0.0x10^3/uL (0.0-0.2) Sodium Level 144mmol/L (136-145) Potassium Level 4.4mmol/L (3.5-5.1) Chloride Level 109mmol/L (98-107) Carbon Dioxide Level 26mmol/L (21-32) Anion Gap 9 (6-14) Blood Urea Nitrogen 19mg/dL (7-20) Creatinine 0.7mg/dL (0.6-1.0) Estimated GFR (Cockcroft-Gault) 80.9 Glucose Level 148mg/dL (70-99) Calcium Level 8.8mg/dL (8.5-10.1) Medications Current Medications Sodium Chloride (Iv Sodium Chloride 0.9% 1000ml Bag) 1,000 ml @ 1,000 mls/hr Q1H IV Last administered on 08/07/16 06:47; Start 08/07/16 at 07:00; Stop at 07:59; Status DC Albuterol/ Ipratropium (Duoneb) 3 ml 1X ONCE NEB Last administered on 06:40; Start 08/07/16 at 07:00; Stop 08/07/16 at 07:01; Status DC Methylprednisolone Sodium Succinate (Solu-Medrol 125mg Vial) 125 mg 1X ONCE IV Last administered on 08/07/16 06:47; Start 08/07/16 at 07:00; Stop 08/07/16 at 07:01; Status DC Lorazepam (Ativan) 1 mg 1X ONCE IV Last administered on 08/07/16 06:56; Start 08/07/16 at 07:15; Stop 08/07/16 at 07:16; Status DC Ondansetron HCl 4 mg 4 mg PRN Q8HRS PRN IV NAUSEA/VOMITING; Start 08/07/16 at 07:00; Stop 08/07/16 at 11:28; Status DC Sodium Chloride (Iv Sodium Chloride 0.9% 1000ml Bag) 1,000 ml @ 100 mls/hr Q10H IV Last administered on 08/07/16 12:40; Start 08/07/16 at 07:00; Stop at 16:06; Status DC Acetaminophen (Tylenol) 650 mg PRN Q4HRS PRN PO FEVER Last administered on 08/07 14:28; Start 08/07/16 at 07:00; Stop 08/08/16 at 06:59; Status DC Albuterol/ Ipratropium (Duoneb) 3 ml RTQID NEB ; Start 08/07/16 at 08:00; Stop 08/08/16 at 07:59; Status DC Methylprednisolone Sodium Succinate (Solu-Medrol 40mg Vial) 60 mg Q6HRS IV Last administered on 08/09/16 05:38; Start 08/07/16 at 12:00 Acetaminophen (Tylenol) 325 mg PRN Q6HRS PRN PO MILD PAIN / TEMP Last administered on 08/08/16 23:44; Start 08/07/16 at 09:45 Acetaminophen/ Hydrocodone Bitart (Lortab 5/325) 1 tab PRN Q6HRS PRN PO MODERATE TO SEVERE PAIN Last administered on 08/07/16 20:10; Start 08/07/16 at 09:45 Hydralazine HCl (Apresoline) 10 mg PRN Q4HRS PRN IVP ELEVATED BP, SEE COMMENTS ; Start 08/07/16 at 09:45 Ondansetron HCl (Zofran) 4 mg PRN Q8HRS PRN IV NAUSEA/VOMITING; Start 08/07/16 at 09:45 Albuterol Sulfate (Ventolin Neb Soln) 2.5 mg PRN Q4HRS PRN NEB SHORTNESS OF BREATH Last administered on 08/08/16 10:02; Start 08/07/16 at 09:45 Albuterol/ Ipratropium (Duoneb) 3 ml RTQID NEB Last administered on 08/09/16 06:55; Start 08/07/16 at 12:00 Budesonide (Pulmicort) 0.5 mg RTBID NEB Last administered on 08/08/16 21:13; Start 08/07/16 at 12:00 Montelukast Sodium 10 mg 10 mg QHS PO Last administered on 08/08/16 21:21; Start 08/07/16 at 21:00 Levofloxacin/ Dextrose (LEVAQUIN 500mg PREMIX) 100 ml @ 100 mls/hr Q24H IV Last administered on 08/08/16 13:22; Start 08/07/16 at 12:00 Enoxaparin Sodium (Lovenox 40mg Syringe) 40 mg Q24H SQ Last administered on 13:24; Start 08/07/16 at 12:00 Pantoprazole Sodium 40 mg 40 mg DAILYAC PO Last administered on 08/08/16 09:12 ; Start 08/07/16 at 11:30 Sodium Chloride (Iv Sodium Chloride 0.9% 1000ml Bag) 1,000 ml @ 50 mls/hr Q20H IV Last administered on 08/08/16 03:00; Start 08/07/16 at 07:00; Stop at 06:59; Status DC Pneumococcal Polyvalent Vaccine (Pneumovax 23) 0.5 ml ONCE ONCE VAX IM ; Start 08/07/16 at 20:30; Stop 08/07/16 at 20:31; Status DC Throat Lozenges (Cepacol Sore Throat Lozenge) 1 kennedi PRN Q2HRS PRN PO SORE THROAT Last administered on 08/07/16 21:21; Start 08/07/16 at 21:00 Fluticasone Propionate (Flonase) 2 spray DAILY NS Last administered on 13:23; Start 08/08/16 at 12:00 Diphenhydramine HCl (Benadryl) 25 mg PRN Q6HRS PRN PO ITCHING Last administered on 08/09/16 02:48; Start 08/09/16 at 01:30 Guaifenesin (Robitussin Dm) 10 ml PRN Q6HRS PRN PO COUGH Last administered on 02:48; Start 08/09/16 at 01:30 Active Scripts Active Reported Levothyroxine Sodium 50 Mcg Tablet 1 Tab PO DAILY Losartan Potassium 25 Mg Tablet 1 Tab PO DAILY Vitals/I & O Vital Sign - Last 24 Hours 08/08/16 08/08/16 08/08/16 08/08/16 07:41 08:05 10:04 11:00 Temp 98.0 98.0 Pulse 103 Resp 18 B/P 154/68 Pulse Ox 97 96 96 O2 Delivery Nasal Cannula Nasal Cannula Nasal Cannula O2 Flow Rate 2.0 3.0 2.0 08/08/16 08/08/16 08/08/16 08/08/16 11:34 15:01 15:59 19:00 Temp 98.5 98.1 98.5 98.1 Pulse 96 105 Resp 18 20 B/P 139/79 141/67 Pulse Ox 95 96 96 94 O2 Delivery Nasal Cannula Nasal Cannula Nasal Cannula Nasal Cannula O2 Flow Rate 2.0 2.0 2.0 2.0 08/08/16 08/08/16 08/08/16 08/08/16 20:15 21:14 21:16 23:00 Temp 98.6 98.6 Pulse 110 Resp 21 B/P 165/95 Pulse Ox 97 97 94 O2 Delivery Nasal Cannula Nasal Cannula Nasal Cannula Nasal Cannula O2 Flow Rate 3.0 2.0 2.0 2.0 08/09/16 08/09/16 08/09/16 02:55 03:00 06:55 Temp 97.7 97.7 Pulse 104 Resp 20 B/P 153/77 Pulse Ox 95 96 93 O2 Delivery Nasal Cannula Nasal Cannula Nasal Cannula O2 Flow Rate 4.0 5.0 4.0 Intake and Output 08/08/16 08/08/16 08/09/16 15:00 23:00 07:00 Intake Total 500 ml 750 ml Output Total 450 ml Balance 50 ml 750 ml VALERIA DONG MD Aug 09, 2016 07:24
[2016-08-09] MEDS: PANTOPRAZOLE 40 MG TABLET. PO SCH (08:34)
[2016-08-09] MEDS: FLUTICASONE 50MCG/NASAL SPRAY 16GM BOTTLE. NS SCH (08:35)
[2016-08-09] MEDS: HYDROCODONE/APAP 5/325MG TABLET. PO PRN (08:37)
--- NOTE | 2016-08-09 09:23 | PDOC ---
PULMONARY PROGRESS NOTES Subjective still has sig sob, has cough, not able to cough up sputum, nasal congestion, no pain, didnt use bipap last night Vitals Vital Signs Date Time Temp Pulse Resp B/P Pulse Ox O2 Delivery O2 Flow Rate FiO2 08/09/16 08:37 Nasal Cannula 4.0 08/09/16 07:00 97.7 104 20 154/88 97 97.7 Comments ros as mentioned as above other sys otherwise neg ROS: No Nausea General: Alert HEENT: Other (nc at perrl, throat is clear) Lungs: Wheezing Cardiovascular: S1, S2 Abdomen: Soft, Non-tender Neuro Exam: Alert Extremities: No Edema Skin: Warm Labs Laboratory Tests Test 08/08/16 03:50 White Blood Count 4.3x10^3/uL (4.0-11.0) Red Blood Count 3.52x10^6/uL (3.50-5.40) Hemoglobin 11.5g/dL (12.0-15.5) Hematocrit 34.3% (36.0-47.0) Mean Corpuscular Volume 98fL (79-100) Mean Corpuscular Hemoglobin 33pg (25-35) Mean Corpuscular Hemoglobin Concent 34g/dL (31-37) Red Cell Distribution Width 14.3% (11.5-14.5) Platelet Count 311x10^3/uL (140-400) Neutrophils (%) (Auto) 78% (31-73) Lymphocytes (%) (Auto) 17% (24-48) Monocytes (%) (Auto) 5% (0-9) Eosinophils (%) (Auto) 0% (0-3) Basophils (%) (Auto) 0% (0-3) Neutrophils # (Auto) 3.4x10^3uL (1.8-7.7) Lymphocytes # (Auto) 0.7x10^3/uL (1.0-4.8) Monocytes # (Auto) 0.2x10^3/uL (0.0-1.1) Eosinophils # (Auto) 0.0x10^3/uL (0.0-0.7) Basophils # (Auto) 0.0x10^3/uL (0.0-0.2) Sodium Level 144mmol/L (136-145) Potassium Level 4.4mmol/L (3.5-5.1) Chloride Level 109mmol/L (98-107) Carbon Dioxide Level 26mmol/L (21-32) Anion Gap 9 (6-14) Blood Urea Nitrogen 19mg/dL (7-20) Creatinine 0.7mg/dL (0.6-1.0) Estimated GFR (Cockcroft-Gault) 80.9 Glucose Level 148mg/dL (70-99) Calcium Level 8.8mg/dL (8.5-10.1) Medications Active Scripts Medications Dose Route/Sig Days Date Category Levothyroxine Sodium 50 Mcg Tablet 1 Tab PO DAILY 08/07/16 Reported Losartan Potassium 25 Mg Tablet 1 Tab PO DAILY 12/27/13 Reported Comments cxr reviewed, No acute cardiopulmonary abnormality is detected. Impression . IMPRESSION: 1. Acute respiratory failure, multifactorial in etiology. 2. Acute exacerbation of asthma. 3. Acute bronchitis. 4. Nonsmoker. 5. Allergic rhinitis. Plan . PLAN AND RECOMMENDATIONS: 1. Titrate FiO2 to keep O2 saturation 92%. 2. increase Bronchodilator to q 4hrs and prn shortness of breath. 3. inhaled corticosteroid. 4. Continue Solu-Medrol 60 mg IV every 6 hours. 5. BiPAP p.r.n during day and cont at night. 6. Lovenox for DVT prophylaxis. 7. Protonix for stress ulcer prophylaxis. 8. Levaquin. 9. Monitor respiratory status very closely. 10. Titrate FiO2 to keep O2 saturation 92%. 11. Singulair. 12. flonase 13. add mucinex. The findings and recommendations were discussed with the patient and RN. The patient understood and agreed to proceed with the plan. I have answered all of her questions. MICHELLE FERNANDEZ MD Aug 09, 2016 09:23
[2016-08-09] MEDS: GUAIFENESIN ER 600 MG TABLET.ER PO SCH ×2 (10:54→20:30)
[2016-08-09 11:00] VITALS: BP 141/77
[2016-08-09] MEDS: ENOXAPARIN 40 MG/0.4 ML DISP.SYRIN. SQ SCH (12:50)
[2016-08-09] MEDS ORDERED: CYCLOBENZAPRINE 10 MG TABLET. PO PRN (14:15)
[2016-08-09 15:00] VITALS: BP 138/71
[2016-08-09] MEDS: ALBUTEROL SULFATE 2.5 MG/3 ML NEBU. NEB PRN (17:45)
[2016-08-09 19:00] VITALS: BP 150/75
[2016-08-09] MEDS: MONTELUKAST SODIUM 10 MG TABLET. PO SCH (20:29)
[2016-08-09 23:00] VITALS: BP 163/82
[2016-08-10] MEDS: IPRATRPIUM/ALBUTEROL 0.5/2.5MG 3 ML NEBU. NEB SCH ×6 (03:16→23:33)
[2016-08-10 03:23] VITALS: BP 165/91
[2016-08-10] MEDS: HYDROCODONE/APAP 5/325MG TABLET. PO PRN (03:29)
[2016-08-10] MEDS: BUDESONIDE 0.5 MG/2 ML NEBU NEB SCH ×2 (06:05→18:59)
[2016-08-10] MEDS: LEVOTHYROXINE 50 MCG TABLET PO SCH (06:19)
[2016-08-10] MEDS: methylPREDNISolone SOD SUCC PF 40 MG/ML VIAL. IV SCH ×3 (06:19→20:59)
[2016-08-10 07:20] VITALS: BP 141/78
[2016-08-10] MEDS: LOSARTAN POTASSIUM 25 MG TABLET. PO SCH (08:09)
[2016-08-10] MEDS: PANTOPRAZOLE 40 MG TABLET. PO SCH (08:09)
[2016-08-10] MEDS: GUAIFENESIN ER 600 MG TABLET.ER PO SCH ×2 (08:09→20:59)
[2016-08-10] MEDS: FLUTICASONE 50MCG/NASAL SPRAY 16GM BOTTLE. NS SCH (08:11)
[2016-08-10 11:07] VITALS: BP 139/79
--- NOTE | 2016-08-10 12:25 | PDOC ---
PULMONARY PROGRESS NOTES Subjective pt feels better less soa Vitals Vital Signs Date Time Temp Pulse Resp B/P Pulse Ox O2 Delivery O2 Flow Rate FiO2 08/10/16 11:07 97.7 108 16 139/79 95 Nasal Cannula 4.0 97.7 ROS: No Nausea, No Chest Pain, No Abdominal Pain, No Increase Cough General: Alert HEENT: Other (nc at perrl, throat is clear) Lungs: Clear Cardiovascular: S1, S2 Abdomen: Soft, Non-tender Neuro Exam: Alert Extremities: No Edema Skin: Warm Medications Active Scripts Medications Dose Route/Sig Days Date Category Levothyroxine Sodium 50 Mcg Tablet 1 Tab PO DAILY 08/07/16 Reported Losartan Potassium 25 Mg Tablet 1 Tab PO DAILY 12/27/13 Reported Comments cxr reviewed, No acute cardiopulmonary abnormality is detected. Impression . IMPRESSION: 1. Acute respiratory failure, multifactorial in etiology. 2. Acute exacerbation of asthma. 3. Acute bronchitis. 4. Nonsmoker. 5. Allergic rhinitis. Plan . pt feels better possible d/c in am taper pred 6 min walk [facility] KELLEY MEANS MD Aug 10, 2016 12:25
[2016-08-10] MEDS: ENOXAPARIN 40 MG/0.4 ML DISP.SYRIN. SQ SCH (12:49)
--- NOTE | 2016-08-10 14:14 | PDOC ---
PROGRESS NOTES Chief Complaint Chief Complaint Acute Asthma exacerbation Possible exposure to animal dander in home, cats and Dogs. Severe Respiratory Failure hypoxia Eosinophilia anxiety Plan IV Solumedrol TID Singulair Pulmicort duoneb q4h, albuterol increase to q2h prn IV Levaquin PRN BIPAP Pulmonology consultation Monitor labs xanax prn ADD PTOT chest rehab History of Present Illness History of Present Illness difficult to breath. still on NC 4L very anxious saying she is very weak no fever Vitals Vitals Vital Signs Date Time Temp Pulse Resp B/P Pulse Ox O2 Delivery O2 Flow Rate FiO2 08/10/16 11:07 97.7 108 16 139/79 95 Nasal Cannula 4.0 97.7 Physical Exam General: Alert, Oriented X3 Heart: Normal S1, Normal S2, Other (tachycardia. ) Lungs: Wheezing (bl mild wheezing and decreased bs) Abdomen: Normal bowel sounds, Soft Extremities: No clubbing Review of Systems Review of Systems no fever, chills, chest pain Assessment and Plan Assessmemt and Plan Problems Medical Problems: (1) Acute on chronic respiratory failure Status: Acute Problems: Comment Review of Relevant I have reviewed the following items arnulfo (where applicable) has been applied. Medications Current Medications Sodium Chloride (Iv Sodium Chloride 0.9% 1000ml Bag) 1,000 ml @ 1,000 mls/hr Q1H IV Last administered on 08/07/16 06:47; Start 08/07/16 at 07:00; Stop at 07:59; Status DC Albuterol/ Ipratropium (Duoneb) 3 ml 1X ONCE NEB Last administered on 06:40; Start 08/07/16 at 07:00; Stop 08/07/16 at 07:01; Status DC Methylprednisolone Sodium Succinate (Solu-Medrol 125mg Vial) 125 mg 1X ONCE IV Last administered on 08/07/16 06:47; Start 08/07/16 at 07:00; Stop 08/07/16 at 07:01; Status DC Lorazepam (Ativan) 1 mg 1X ONCE IV Last administered on 08/07/16 06:56; Start 08/07/16 at 07:15; Stop 08/07/16 at 07:16; Status DC Ondansetron HCl 4 mg 4 mg PRN Q8HRS PRN IV NAUSEA/VOMITING; Start 08/07/16 at 07:00; Stop 08/07/16 at 11:28; Status DC Sodium Chloride (Iv Sodium Chloride 0.9% 1000ml Bag) 1,000 ml @ 100 mls/hr Q10H IV Last administered on 08/07/16 12:40; Start 08/07/16 at 07:00; Stop at 16:06; Status DC Acetaminophen (Tylenol) 650 mg PRN Q4HRS PRN PO FEVER Last administered on 08/07 14:28; Start 08/07/16 at 07:00; Stop 08/08/16 at 06:59; Status DC Albuterol/ Ipratropium (Duoneb) 3 ml RTQID NEB ; Start 08/07/16 at 08:00; Stop 08/08/16 at 07:59; Status DC Methylprednisolone Sodium Succinate (Solu-Medrol 40mg Vial) 60 mg Q6HRS IV Last administered on 08/10/16 06:19; Start 08/07/16 at 12:00; Stop 08/10/16 at 10:45; Status DC Acetaminophen (Tylenol) 325 mg PRN Q6HRS PRN PO MILD PAIN / TEMP Last administered on 08/08/16 23:44; Start 08/07/16 at 09:45 Acetaminophen/ Hydrocodone Bitart (Lortab 5/325) 1 tab PRN Q6HRS PRN PO MODERATE TO SEVERE PAIN Last administered on 08/10/16 03:29; Start 08/07/16 at 09:45 Hydralazine HCl (Apresoline) 10 mg PRN Q4HRS PRN IVP ELEVATED BP, SEE COMMENTS ; Start 08/07/16 at 09:45 Ondansetron HCl (Zofran) 4 mg PRN Q8HRS PRN IV NAUSEA/VOMITING; Start 08/07/16 at 09:45 Albuterol Sulfate (Ventolin Neb Soln) 2.5 mg PRN Q4HRS PRN NEB SHORTNESS OF BREATH Last administered on 08/09/16 17:45; Start 08/07/16 at 09:45 Albuterol/ Ipratropium (Duoneb) 3 ml RTQID NEB Last administered on 08/09/16 06:55; Start 08/07/16 at 12:00; Stop 08/09/16 at 09:25; Status DC Budesonide (Pulmicort) 0.5 mg RTBID NEB Last administered on 08/10/16 06:05; Start 08/07/16 at 12:00 Montelukast Sodium 10 mg 10 mg QHS PO Last administered on 08/09/16 20:29; Start 08/07/16 at 21:00 Levofloxacin/ Dextrose (LEVAQUIN 500mg PREMIX) 100 ml @ 100 mls/hr Q24H IV Last administered on 08/10/16 12:48; Start 08/07/16 at 12:00 Enoxaparin Sodium (Lovenox 40mg Syringe) 40 mg Q24H SQ Last administered on 12:49; Start 08/07/16 at 12:00 Pantoprazole Sodium 40 mg 40 mg DAILYAC PO Last administered on 08/10/16 08:09 ; Start 08/07/16 at 11:30 Sodium Chloride (Iv Sodium Chloride 0.9% 1000ml Bag) 1,000 ml @ 50 mls/hr Q20H IV Last administered on 08/08/16 03:00; Start 08/07/16 at 07:00; Stop at 06:59; Status DC Pneumococcal Polyvalent Vaccine (Pneumovax 23) 0.5 ml ONCE ONCE VAX IM ; Start 08/07/16 at 20:30; Stop 08/07/16 at 20:31; Status DC Throat Lozenges (Cepacol Sore Throat Lozenge) 1 kennedi PRN Q2HRS PRN PO SORE THROAT Last administered on 08/07/16 21:21; Start 08/07/16 at 21:00 Fluticasone Propionate (Flonase) 2 spray DAILY NS Last administered on 08:11; Start 08/08/16 at 12:00 Diphenhydramine HCl (Benadryl) 25 mg PRN Q6HRS PRN PO ITCHING Last administered on 08/09/16 02:48; Start 08/09/16 at 01:30 Guaifenesin (Robitussin Dm) 10 ml PRN Q6HRS PRN PO COUGH Last administered on 02:48; Start 08/09/16 at 01:30 Albuterol/ Ipratropium (Duoneb) 3 ml Q4HRS NEB Last administered on 08/10/16 10:43; Start 08/09/16 at 12:00 Guaifenesin (Mucinex) 1,200 mg BID PO Last administered on 08/10/16 08:09; Start 08/09/16 at 10:00 Cyclobenzaprine HCl (Flexeril) 5 mg PRN BID PRN PO MUSCLE SPASMS; Start at 14:15 Levothyroxine Sodium (Synthroid) 50 mcg DAILY07 PO Last administered on 06:19; Start 08/10/16 at 07:00 Losartan Potassium (Cozaar) 25 mg DAILY PO Last administered on 08/10/16 08:09 ; Start 08/10/16 at 09:00 Methylprednisolone Sodium Succinate (Solu-Medrol 40mg Vial) 60 mg TID IV ; Start 08/10/16 at 14:00 Alprazolam (Xanax) 0.25 mg PRN Q8HRS PRN PO ANXIETY / AGITATION; Start at 10:45 Active Scripts Active Reported Levothyroxine Sodium 50 Mcg Tablet 1 Tab PO DAILY Losartan Potassium 25 Mg Tablet 1 Tab PO DAILY Vitals/I & O Vital Sign - Last 24 Hours 08/09/16 08/09/16 08/09/16 08/09/16 14:51 15:00 17:46 19:00 Temp 98.1 98.7 98.1 98.7 Pulse 104 108 Resp 18 21 B/P 138/71 150/75 Pulse Ox 98 96 O2 Delivery Nasal Cannula Nasal Cannula Nasal Cannula Nasal Cannula O2 Flow Rate 4.0 2.0 4.0 4.0 08/09/16 08/09/16 08/09/16 08/09/16 20:15 20:23 23:00 23:15 Temp 98.6 98.6 Pulse 98 Resp 20 B/P 163/82 Pulse Ox 97 97 O2 Delivery Nasal Cannula Nasal Cannula Nasal Cannula Nasal Cannula O2 Flow Rate 4.0 4.0 4.0 4.0 08/10/16 08/10/16 08/10/16 08/10/16 03:18 03:23 06:07 07:20 Temp 96.8 97.6 96.8 97.6 Pulse 95 101 Resp 16 16 B/P 165/91 141/78 Pulse Ox 97 97 97 97 O2 Delivery Nasal Cannula Nasal Cannula Nasal Cannula Nasal Cannula O2 Flow Rate 4.0 4.0 4.0 4.0 08/10/16 08/10/16 08/10/16 08:09 10:44 11:07 Temp 97.7 97.7 Pulse 101 108 Resp 16 B/P 141/78 139/79 Pulse Ox 98 95 O2 Delivery Nasal Cannula Nasal Cannula O2 Flow Rate 4.0 4.0 Intake and Output 08/09/16 08/09/16 08/10/16 15:00 23:00 07:00 Intake Total 350 ml 1400 ml Output Total 500 ml Balance -150 ml 1400 ml BILLY PITTMAN MD Aug 10, 2016 14:14
[2016-08-10 15:00] VITALS: BP 133/77
[2016-08-10 19:25] VITALS: BP 147/65
[2016-08-10] MEDS: ALPRAZOLAM 0.25 MG TABLET PO PRN (20:59)
[2016-08-10] MEDS: MONTELUKAST SODIUM 10 MG TABLET. PO SCH (20:59)
[2016-08-10] MEDS: ALBUTEROL SULFATE 2.5 MG/3 ML NEBU. NEB PRN (21:04)
[2016-08-10 23:25] VITALS: BP 165/81
[2016-08-11 03:25] VITALS: BP 146/80
[2016-08-11] MEDS: IPRATRPIUM/ALBUTEROL 0.5/2.5MG 3 ML NEBU. NEB SCH ×5 (03:25→19:47)
[2016-08-11 04:18] LABS: BASO % 0 % (0-3); EOS % 0 % (0-3); HEMATOCRIT 37.1 % (36.0-47.0); HEMOGLOBIN 12.2 g/dL (12.0-15.5); LYMPH # 0.7 x10^3/uL (1.0-4.8); LYMPH % 7 % (24-48); MEAN CORPUSCULAR HEMOGLOBIN 33 pg (25-35); MEAN CORPUSCULAR HGB CONC 33 g/dL (31-37); MEAN CORPUSCULAR VOLUME 99 fL (79-100); MONO % 6 % (0-9); NEUT % 87 % (31-73); PLATELET COUNT 293 x10^3/uL (140-400); RED BLOOD COUNT 3.75 x10^6/uL (3.50-5.40); RED CELL DISTRIBUTION WIDTH 14.3 % (11.5-14.5); WHITE BLOOD COUNT 9.2 x10^3/uL (4.0-11.0)
[2016-08-11 04:28] LABS: CALCIUM 8.8 mg/dL (8.5-10.1); CREATININE 0.8 mg/dL (0.6-1.0); GFR 69.4; POTASSIUM 4.2 mmol/L (3.5-5.1)
[2016-08-11] MEDS: LEVOFLOXACIN 250 MG TABLET. PO SCH (06:07)
[2016-08-11] MEDS: LEVOTHYROXINE 50 MCG TABLET PO SCH (06:08)
[2016-08-11 07:00] VITALS: BP 155/79
[2016-08-11 07:36] LABS: PLT ESTIMATE ADEQUATE (ADEQUATE)
[2016-08-11] MEDS: BUDESONIDE 0.5 MG/2 ML NEBU NEB SCH ×2 (07:38→19:48)
[2016-08-11] MEDS: GUAIFENESIN ER 600 MG TABLET.ER PO SCH ×2 (08:47→20:18)
[2016-08-11] MEDS: PANTOPRAZOLE 40 MG TABLET. PO SCH (08:48)
[2016-08-11] MEDS: LOSARTAN POTASSIUM 25 MG TABLET. PO SCH (08:51)
[2016-08-11] MEDS: methylPREDNISolone SOD SUCC PF 40 MG/ML VIAL. IV SCH (08:52)
[2016-08-11] MEDS: FLUTICASONE 50MCG/NASAL SPRAY 16GM BOTTLE. NS SCH (08:59)
[2016-08-11] MEDS: HYDROCODONE/APAP 5/325MG TABLET. PO PRN ×2 (10:15→20:19)
[2016-08-11] MEDS: ALBUTEROL SULFATE 2.5 MG/3 ML NEBU. NEB PRN (10:18)
--- NOTE | 2016-08-11 10:45 | PDOC ---
PULMONARY PROGRESS NOTES Subjective pt feels better less soa Vitals Vital Signs Date Time Temp Pulse Resp B/P Pulse Ox O2 Delivery O2 Flow Rate FiO2 08/11/16 10:18 Nasal Cannula 4.0 08/11/16 10:15 20 08/11/16 08:51 104 155/79 08/11/16 07:39 99 08/11/16 07:00 97.7 97.7 ROS: No Nausea, No Chest Pain, No Abdominal Pain, No Increase Cough General: Alert HEENT: Other (nc at perrl, throat is clear) Lungs: Clear Cardiovascular: S1, S2 Abdomen: Soft, Non-tender Neuro Exam: Alert Extremities: No Edema Skin: Warm Labs Laboratory Tests Test 08/11/16 03:35 White Blood Count 9.2x10^3/uL (4.0-11.0) Red Blood Count 3.75x10^6/uL (3.50-5.40) Hemoglobin 12.2g/dL (12.0-15.5) Hematocrit 37.1% (36.0-47.0) Mean Corpuscular Volume 99fL (79-100) Mean Corpuscular Hemoglobin 33pg (25-35) Mean Corpuscular Hemoglobin Concent 33g/dL (31-37) Red Cell Distribution Width 14.3% (11.5-14.5) Platelet Count 293x10^3/uL (140-400) Neutrophils (%) (Auto) 87% (31-73) Lymphocytes (%) (Auto) 7% (24-48) Monocytes (%) (Auto) 6% (0-9) Eosinophils (%) (Auto) 0% (0-3) Basophils (%) (Auto) 0% (0-3) Neutrophils # (Auto) 8.0x10^3uL (1.8-7.7) Lymphocytes # (Auto) 0.7x10^3/uL (1.0-4.8) Monocytes # (Auto) 0.5x10^3/uL (0.0-1.1) Eosinophils # (Auto) 0.0x10^3/uL (0.0-0.7) Basophils # (Auto) 0.0x10^3/uL (0.0-0.2) Segmented Neutrophils % 96% (35-66) Lymphocytes % 4% (24-48) Platelet Estimate Adequate (ADEQUATE) Sodium Level 143mmol/L (136-145) Potassium Level 4.2mmol/L (3.5-5.1) Chloride Level 104mmol/L (98-107) Carbon Dioxide Level 31mmol/L (21-32) Anion Gap 8 (6-14) Blood Urea Nitrogen 25mg/dL (7-20) Creatinine 0.8mg/dL (0.6-1.0) Estimated GFR (Cockcroft-Gault) 69.4 Glucose Level 166mg/dL (70-99) Calcium Level 8.8mg/dL (8.5-10.1) Laboratory Tests Test 08/11/16 03:35 White Blood Count 9.2x10^3/uL (4.0-11.0) Red Blood Count 3.75x10^6/uL (3.50-5.40) Hemoglobin 12.2g/dL (12.0-15.5) Hematocrit 37.1% (36.0-47.0) Mean Corpuscular Volume 99fL (79-100) Mean Corpuscular Hemoglobin 33pg (25-35) Mean Corpuscular Hemoglobin Concent 33g/dL (31-37) Red Cell Distribution Width 14.3% (11.5-14.5) Platelet Count 293x10^3/uL (140-400) Neutrophils (%) (Auto) 87% (31-73) Lymphocytes (%) (Auto) 7% (24-48) Monocytes (%) (Auto) 6% (0-9) Eosinophils (%) (Auto) 0% (0-3) Basophils (%) (Auto) 0% (0-3) Neutrophils # (Auto) 8.0x10^3uL (1.8-7.7) Lymphocytes # (Auto) 0.7x10^3/uL (1.0-4.8) Monocytes # (Auto) 0.5x10^3/uL (0.0-1.1) Eosinophils # (Auto) 0.0x10^3/uL (0.0-0.7) Basophils # (Auto) 0.0x10^3/uL (0.0-0.2) Segmented Neutrophils % 96% (35-66) Lymphocytes % 4% (24-48) Platelet Estimate Adequate (ADEQUATE) Sodium Level 143mmol/L (136-145) Potassium Level 4.2mmol/L (3.5-5.1) Chloride Level 104mmol/L (98-107) Carbon Dioxide Level 31mmol/L (21-32) Anion Gap 8 (6-14) Blood Urea Nitrogen 25mg/dL (7-20) Creatinine 0.8mg/dL (0.6-1.0) Estimated GFR (Cockcroft-Gault) 69.4 Glucose Level 166mg/dL (70-99) Calcium Level 8.8mg/dL (8.5-10.1) Medications Active Scripts Medications Dose Route/Sig Days Date Category Levothyroxine Sodium 50 Mcg Tablet 1 Tab PO DAILY 08/07/16 Reported Losartan Potassium 25 Mg Tablet 1 Tab PO DAILY 12/27/13 Reported Comments cxr reviewed, No acute cardiopulmonary abnormality is detected. Impression . IMPRESSION: 1. Acute respiratory failure, multifactorial in etiology. 2. Acute exacerbation of asthma. 3. Acute bronchitis. 4. Nonsmoker. 5. Allergic rhinitis. Plan . d/c today ok rx written for Dulera and Protonix taper pred 6 min walk [facility] follow up in 4-6 weeks KELLEY MEANS MD Aug 11, 2016 10:45
[2016-08-11 11:00] VITALS: BP 144/81
[2016-08-11] MEDS ORDERED: LEVO250T25 PO (13:37)
[2016-08-11] MEDS ORDERED: PRED20TA PO (13:37)
[2016-08-11] MEDS ORDERED: GUAI600T38 PO (13:38)
--- NOTE | 2016-08-11 13:39 | PDOC3 ---
Discharge Summary [facility] Date of Admission: Aug 07, 2016 Discharge Date: Aug 11, 2016 Admitting Diagnosis Acute Asthma exacerbation Possible exposure to animal dander in home, cats and Dogs. Severe Respiratory Failure hypoxia Eosinophilia anxiety likely COPD bronchitis no sepsis Problems: Final Diagnosis CONSULTS pulm Brief Hospital Course Ms. Flores is a 76 old F, very anxious lady, comes for cough with sputum and sob, need NC o2 4l, BL LUGNS WHEEZING pt has been on nebs, solumetrol, levaquin, slowly improving, feels tired. waiting to get 6 min walk, then dc home today with levaquin for another 3 days, ,taper steroid, pulm gave prescription for nebs dc time 35min General: Alert, Oriented X3 Heart: Normal S1, Normal S2, Other (tachycardia. ) Lungs: Wheezing (bl mild wheezing and decreased bs) Abdomen: Normal bowel sounds, Soft Extremities: No clubbing Problems: Disposition home CONDITION AT DISCHARGE: Improved Diet regular Scheduled Levothyroxine Sodium (Levothyroxine Sodium) 1 TAB PO DAILY (Reported) Losartan Potassium (Losartan Potassium) 1 TAB PO DAILY (Reported) Follow Up pcp and pulm in2 weeks BILLY PITTMAN MD Aug 11, 2016 13:39
[2016-08-11 15:00] VITALS: BP 145/85
[2016-08-11] MEDS: PREDNISONE 20 MG TABLET PO SCH (15:43)
[2016-08-11] MEDS: ENOXAPARIN 40 MG/0.4 ML DISP.SYRIN. SQ SCH (15:43)
[2016-08-11 19:15] VITALS: BP 151/85
[2016-08-11] MEDS: MONTELUKAST SODIUM 10 MG TABLET. PO SCH (20:18)
[2016-08-11] MEDS: ALPRAZOLAM 0.25 MG TABLET PO PRN (20:18)
[2016-08-11 23:15] VITALS: BP 149/86
[2016-08-12] MEDS: IPRATRPIUM/ALBUTEROL 0.5/2.5MG 3 ML NEBU. NEB SCH ×5 (00:22→15:05)
[2016-08-12 03:15] VITALS: BP 150/85
[2016-08-12] MEDS: LEVOFLOXACIN 250 MG TABLET. PO SCH (06:28)
[2016-08-12] MEDS: LEVOTHYROXINE 50 MCG TABLET PO SCH (06:28)
[2016-08-12] MEDS: BUDESONIDE 0.5 MG/2 ML NEBU NEB SCH (06:39)
[2016-08-12 07:05] VITALS: BP 140/85
[2016-08-12] MEDS: PANTOPRAZOLE 40 MG TABLET. PO SCH (08:35)
[2016-08-12] MEDS: PREDNISONE 20 MG TABLET PO SCH (08:36)
[2016-08-12] MEDS: GUAIFENESIN ER 600 MG TABLET.ER PO SCH (08:36)
[2016-08-12] MEDS: LOSARTAN POTASSIUM 25 MG TABLET. PO SCH (08:36)
[2016-08-12] MEDS: FLUTICASONE 50MCG/NASAL SPRAY 16GM BOTTLE. NS SCH (08:37)
--- NOTE | 2016-08-12 09:47 | PDOC ---
PULMONARY PROGRESS NOTES Subjective pt feels better less soa Vitals Vital Signs Date Time Temp Pulse Resp B/P Pulse Ox O2 Delivery O2 Flow Rate FiO2 08/12/16 08:36 101 140/85 08/12/16 07:05 97.9 17 99 Nasal Cannula 3.0 97.9 ROS: No Nausea, No Chest Pain, No Abdominal Pain, No Increase Cough General: Alert HEENT: Other (nc at perrl, throat is clear) Lungs: Clear Cardiovascular: S1, S2 Abdomen: Soft, Non-tender Neuro Exam: Alert Extremities: No Edema Skin: Warm Labs Laboratory Tests Test 08/11/16 03:35 White Blood Count 9.2x10^3/uL (4.0-11.0) Red Blood Count 3.75x10^6/uL (3.50-5.40) Hemoglobin 12.2g/dL (12.0-15.5) Hematocrit 37.1% (36.0-47.0) Mean Corpuscular Volume 99fL (79-100) Mean Corpuscular Hemoglobin 33pg (25-35) Mean Corpuscular Hemoglobin Concent 33g/dL (31-37) Red Cell Distribution Width 14.3% (11.5-14.5) Platelet Count 293x10^3/uL (140-400) Neutrophils (%) (Auto) 87% (31-73) Lymphocytes (%) (Auto) 7% (24-48) Monocytes (%) (Auto) 6% (0-9) Eosinophils (%) (Auto) 0% (0-3) Basophils (%) (Auto) 0% (0-3) Neutrophils # (Auto) 8.0x10^3uL (1.8-7.7) Lymphocytes # (Auto) 0.7x10^3/uL (1.0-4.8) Monocytes # (Auto) 0.5x10^3/uL (0.0-1.1) Eosinophils # (Auto) 0.0x10^3/uL (0.0-0.7) Basophils # (Auto) 0.0x10^3/uL (0.0-0.2) Segmented Neutrophils % 96% (35-66) Lymphocytes % 4% (24-48) Platelet Estimate Adequate (ADEQUATE) Sodium Level 143mmol/L (136-145) Potassium Level 4.2mmol/L (3.5-5.1) Chloride Level 104mmol/L (98-107) Carbon Dioxide Level 31mmol/L (21-32) Anion Gap 8 (6-14) Blood Urea Nitrogen 25mg/dL (7-20) Creatinine 0.8mg/dL (0.6-1.0) Estimated GFR (Cockcroft-Gault) 69.4 Glucose Level 166mg/dL (70-99) Calcium Level 8.8mg/dL (8.5-10.1) Medications Active Scripts Medications Dose Route/Sig Days Date Category Levothyroxine Sodium 50 Mcg Tablet 1 Tab PO DAILY 08/07/16 Reported Losartan Potassium 25 Mg Tablet 1 Tab PO DAILY 12/27/13 Reported Comments cxr reviewed, No acute cardiopulmonary abnormality is detected. Impression . IMPRESSION: 1. Acute respiratory failure, multifactorial in etiology. 2. Acute exacerbation of asthma. 3. Acute bronchitis. 4. Nonsmoker. 5. Allergic rhinitis. Plan . d/c today follow up in office rx written for Dulera and Protonix taper pred needs 02 Zyrte OC KELLEY MEANS MD Aug 12, 2016 09:47
[2016-08-12 10:47] VITALS: BP 125/79
--- NOTE | 2016-08-12 11:53 | PDOC3 ---
Discharge Summary [facility] Date of Admission: Aug 07, 2016 Discharge Date: Aug 12, 2016 Admitting Diagnosis Acute Asthma exacerbation Possible exposure to animal dander in home, cats and Dogs. Severe Respiratory Failure hypoxia Eosinophilia anxiety likely COPD bronchitis no sepsis Problems: Final Diagnosis CONSULTS CONSULTS pulm Brief Hospital Course Brief Hospital Course Ms. Flores is a 76 old F, very anxious lady, comes for cough with sputum and sob, need NC o2 4l, BL LUGNS WHEEZING pt has been on nebs, solumetrol, levaquin, slowly improving, feels tired. got 6 min walk, need NC 3 L, then dc home today with levaquin for another 3 days, ,taper steroid, pulm gave prescription for nebs PT WAS supposed to dc yesterday, but very anxious to go home since her not home and in [facility] for bladder Ca. pt not qualified for rehab, and refused HH. give 10 pills 0.25mg xanax prn. dc time 35min General: Alert, Oriented X3 Heart: Normal S1, Normal S2, Other (tachycardia. ) Lungs: Wheezing (bl mild wheezing and decreased bs) Abdomen: Normal bowel sounds, Soft Extremities: No clubbing Problems: Disposition Problems: Disposition home CONDITION AT DISCHARGE: Improved Diet regular Scheduled Guaifenesin (Mucinex) 1,200 MG PO BID Levofloxacin (Levaquin) 250 MG PO DAILY06 Levothyroxine Sodium (Levothyroxine Sodium) 1 TAB PO DAILY (Reported) Losartan Potassium (Losartan Potassium) 1 TAB PO DAILY (Reported) Prednisone (Prednisone) 40 MG PO DAILY Follow Up pcp and pulm in 2 weeks BILLY PITTMAN MD Aug 12, 2016 11:53
[2016-08-12] MEDS: ENOXAPARIN 40 MG/0.4 ML DISP.SYRIN. SQ SCH (12:00)
[2016-08-12 15:00] VITALS: BP 126/78
[2016-08-12] MEDS: ALBUTEROL SULFATE 2.5 MG/3 ML NEBU. NEB PRN (17:03)
== END 2016-08-12 17:45 | disposition home or self-care (01) | DRG 189 ==
LOC: ER 06:17 → ED HOLD 07:05 → 6 SOUTH 10:48
PROVIDERS: ADMIT Internal Medicine; ATTEND Internal Medicine
PROC: 5A09357 Assistance with Respiratory Ventilation, Less than 24 Consecutive Hours, Continuous Positive Airway Pressure (ICD-10-PCS; principal; 2016-08-07)
DX: J96.21 Acute and chronic respiratory failure with hypoxia (principal); J45.901 Unspecified asthma with (acute) exacerbation; J44.0 Chronic obstructive pulmonary disease with (acute) lower respiratory infection; D72.1 Eosinophilia; J20.9 Acute bronchitis, unspecified; F41.9 Anxiety disorder, unspecified; G25.81 Restless legs syndrome; Z82.49 Family history of ischemic heart disease and other diseases of the circulatory system; Z90.710 Acquired absence of both cervix and uterus
CPT/HCPCS: 36415; 36600; 71010; 80048; 80053; 82553; 82805; 83880; 84484; 85007; 85027; 87804; 93005; 94250; 94620; 94640; 94660; 94760; 96361; 96374; 96375; J1650; J1956; J2060; J2920; J2930; J7030; J7512; J7620; Q0163; 99291-25

== ENCOUNTER 2017-06-21 14:12 | Inpatient (IN) | payer MEDICARE, OTHER ==
[2017-06-21] MEDS: ETOMIDATE 20 MG/10 ML VIAL. IV ×2 (14:14)
[2017-06-21] MEDS: SUCCINYLCHOLINE 200 MG/10 ML VIAL. IV ×2 (14:14)
[2017-06-21] MEDS: VECURONIUM BOLUS 10 MG VIAL. IV ×2 (14:18)
[2017-06-21] MEDS: IV NORMAL SALINE 1000ML BAG 1,000 ML IV ×6 (14:19→17:49)
[2017-06-21] MEDS ORDERED: VANCOMYCIN PER PHARMACY MC ×2 (14:30)
[2017-06-21] MEDS ORDERED: levOFLOXacin PER PHARMACY. MC ×2 (14:30)
[2017-06-21] MEDS: ACETAMINOPHEN 120 MG SUPP.RECT. PR ×2 (14:36)
[2017-06-21 14:38] LABS: BASO # 0.2 x10^3/uL (0.0-0.2); BASO % 2 % (0-3); EOS # 0.2 x10^3/uL (0.0-0.7); EOS % 2 % (0-3); HEMATOCRIT 31.4 % (36.0-47.0); HEMOGLOBIN 10.2 g/dL (12.0-15.5); LYMPH # 2.1 x10^3/uL (1.0-4.8); LYMPH % 24 % (24-48); MEAN CORPUSCULAR HEMOGLOBIN 31 pg (25-35); MEAN CORPUSCULAR HGB CONC 32 g/dL (31-37); MEAN CORPUSCULAR VOLUME 97 fL (79-100); MONO # 1.5 x10^3/uL (0.0-1.1); MONO % 18 % (0-9); NEUT # 4.6 x10^3uL (1.8-7.7); NEUT % 54 % (31-73); PLATELET COUNT 387 x10^3/uL (140-400); RED BLOOD COUNT 3.25 x10^6/uL (3.50-5.40); RED CELL DISTRIBUTION WIDTH 14.3 % (11.5-14.5); WHITE BLOOD COUNT 8.5 x10^3/uL (4.0-11.0)
[2017-06-21 14:39] LABS: BILIRUBIN,URINE NEGATIVE (NEG); CLARITY,URINE CLEAR; COLOR,URINE YELLOW; GLUCOSE,URINE NEGATIVE (NEG); NITRITE,URINE NEGATIVE (NEG); PROTEIN,URINE 30 mg/dL (NEG-TRACE); UROBILINOGEN,URINE 0.2 mg/dL (0.2 mg/dL)
[2017-06-21 14:42] LABS: INR 1.1 (0.8-1.1); PROTHROMBIN TIME PATIENT 13.7 SEC (11.7-14.0)
[2017-06-21 14:45] LABS: ADD MAN DIFF? YES
[2017-06-21] MEDS: methylPREDNISolone SOD SUCC PF 125 MG/2 ML VIAL. IV ×4 (14:45→21:43)
[2017-06-21] MEDS: IPRATRPIUM/ALBUTEROL 0.5/2.5MG 3 ML NEBU. NEB ×12 (14:50→23:31)
[2017-06-21 14:51] LABS: BACTERIA,URINE 0 /HPF (0-FEW); RBC,URINE 0 /HPF (0-2); SQUAMOUS EPITHELIAL CELL,UR FEW /LPF; WBC,URINE OCC /HPF (0-4)
[2017-06-21 14:52] LABS: ANION GAP 8 (6-14); BLOOD UREA NITROGEN 17 mg/dL (7-20); BUN/CREATININE RATIO 14 (6-20); CALCIUM 8.8 mg/dL (8.5-10.1); CARBON DIOXIDE 30 mmol/L (21-32); CHLORIDE 103 mmol/L (98-107); CREATININE 1.2 mg/dL (0.6-1.0); GFR 43.4; GLUCOSE 246 mg/dL (70-99); POTASSIUM 4.4 mmol/L (3.5-5.1); SODIUM 141 mmol/L (136-145)
[2017-06-21 14:54] LABS: AGAP ISTAT 15 mmol/L (6-14); BUN ISTAT 17 mg/dL (8-26); CHLORIDE ISTAT 103 mmol/L (98-110); CREATININE ISTAT 1.1 mg/dL (0.5-1.4); GLUCOSE ISTAT 234 mg/dL (70-99); HEMATOCRIT ISTAT 31 % (36-40); HEMOGLOBIN ISTAT 10.5 g/dL (12-15); ION CA ISTAT 1.26 mmol/L (1.13-1.32); POTASSIUM ISTAT 4.4 mmol/L (3.5-5.0); SODIUM ISTAT 140 mmol/L (135-145); TOT CO2 ISTAT 27 mmol/L (23-32)
[2017-06-21 14:58] LABS: ALBUMIN 3.5 g/dL (3.4-5.0); ALK PHOS 85 U/L (46-116); ALT (SGPT) 29 U/L (14-59); AST (SGOT) 23 U/L (15-37); TOTAL BILIRUBIN 0.1 mg/dL (0.2-1.0); TOTAL PROTEIN 6.9 g/dL (6.4-8.2)
[2017-06-21 15:00] LABS: LACTIC ACID 3.8 mmol/L (0.4-2.0)
[2017-06-21 15:01] LABS: TROPONINI < 0.017 ng/mL (0.000-0.055)
[2017-06-21 15:01] LABS: BASE EXCESS ABG -5 mmol/L (-3-3); HCO3 ABG 23 mmol/L (21-28); PCO2 ABG 56 mmHg (35-46); PH ABG 7.22 (7.35-7.45); PO2 ABG > 503 mmHg (65-108); SAT O2 ABG 99 % (92-99)
[2017-06-21] MEDS ORDERED: ONDANSETRON PF 4 MG/2 ML VIAL. IV ×2 (15:15)
[2017-06-21 15:20] LABS: INFLUENZA A PATIENT POSITIVE (NEGATIVE); INFLUENZA B PATIENT NEGATIVE (NEGATIVE); OBC FLU VALID
[2017-06-21] MEDS: IOHEXOL 300 MG/ML 100ML VIAL. IV ×2 (15:30)
[2017-06-21] MEDS ORDERED: CONTRAST GIVEN MC ×2 (15:30)
[2017-06-21] MEDS ORDERED: DEXTROSE 50% 25 GM / 50ML DISP.SYRIN. IV ×2 (15:45)
[2017-06-21] MEDS: VANCOMYCIN 1.5 GM in IV DEXTROSE 5 %-0.2 % NACL 500 ML IV (15:47)
[2017-06-21] MEDS ORDERED: IPRATRPIUM/ALBUTEROL 0.5/2.5MG 3 ML NEBU. NEB ×2 (16:00)
[2017-06-21 16:11] LABS: NT-PRO BNP 340 pg/mL (0-449)
[2017-06-21] MEDS: VANCOMYCIN PER PHARMACY MC ×2 (16:24)
[2017-06-21] MEDS ORDERED: PROPOFOL 100 ML IV ×2 (17:35)
[2017-06-21 17:38] LABS: % EOS 2 % (0-5); % LYMPHS 23 % (24-48); % MONOS 13 % (0-10); % SEGS 62 % (35-66); PLT ESTIMATE ADEQUATE (ADEQUATE)
[2017-06-21 17:39] LABS: HYPOCHROMIA SLIGHT; POIKILOCYTOSIS SLIGHT
[2017-06-21] MEDS: OSELTAMIVIR 30 MG/5 ML ORAL.SUSP. PEG ×2 (17:48)
[2017-06-21] MEDS: INSULIN ASPART 300 UNITS/3 ML INSULN.PEN SQ ×2 (17:57)
[2017-06-21] MEDS ORDERED: PROPOFOL 10 MG/ML (100ML) VIAL. IV ×2 (18:00)
[2017-06-21 18:22] LABS: POC GLUCOSE 228 mg/dL (70-99)
[2017-06-21 19:05] LABS: LACTIC ACID 2.2 mmol/L (0.4-2.0)
[2017-06-21] MEDS: BUDESONIDE 0.5 MG/2 ML NEBU. NEB ×2 (20:00)
[2017-06-21] MEDS: guaiFENesin ORAL 200 MG/10 ML LIQUID. PO ×2 (21:43)
[2017-06-22] MEDS: IV NORMAL SALINE 1000ML BAG 1,000 ML IV ×4 (00:38→10:08)
[2017-06-22] MEDS: guaiFENesin ORAL 200 MG/10 ML LIQUID. PO ×10 (00:38→17:39)
[2017-06-22 01:05] LABS: POC GLUCOSE 124 mg/dL (70-99)
[2017-06-22] MEDS: IPRATRPIUM/ALBUTEROL 0.5/2.5MG 3 ML NEBU. NEB ×6 (02:41→12:00)
[2017-06-22] MEDS: PROPOFOL 100 ML IV ×4 (03:38→15:24)
[2017-06-22 05:18] LABS: POC GLUCOSE 118 mg/dL (70-99)
[2017-06-22] MEDS: INSULIN ASPART 300 UNITS/3 ML INSULN.PEN SQ ×8 (05:42→18:00)
[2017-06-22 06:14] LABS: BASO % 0 % (0-3); EOS % 0 % (0-3); HEMOGLOBIN 9.1 g/dL (12.0-15.5); LYMPH # 0.3 x10^3/uL (1.0-4.8); LYMPH % 3 % (24-48); MEAN CORPUSCULAR HEMOGLOBIN 31 pg (25-35); MEAN CORPUSCULAR HGB CONC 33 g/dL (31-37); MEAN CORPUSCULAR VOLUME 96 fL (79-100); MONO # 0.3 x10^3/uL (0.0-1.1); MONO % 4 % (0-9); NEUT # 8.5 x10^3uL (1.8-7.7); NEUT % 93 % (31-73); PLATELET COUNT 281 x10^3/uL (140-400); RED BLOOD COUNT 2.92 x10^6/uL (3.50-5.40); RED CELL DISTRIBUTION WIDTH 14.4 % (11.5-14.5); WHITE BLOOD COUNT 9.2 x10^3/uL (4.0-11.0)
[2017-06-22 06:33] LABS: ALBUMIN 2.8 g/dL (3.4-5.0); ALBUMIN/GLOBULIN RATIO 0.9 (1.0-1.7); ALK PHOS 92 U/L (46-116); ALT (SGPT) 42 U/L (14-59); ANION GAP 10 (6-14); AST (SGOT) 45 U/L (15-37); BLOOD UREA NITROGEN 16 mg/dL (7-20); BUN/CREATININE RATIO 20 (6-20); CALCIUM 7.3 mg/dL (8.5-10.1); CARBON DIOXIDE 22 mmol/L (21-32); CHLORIDE 107 mmol/L (98-107); CREATININE 0.8 mg/dL (0.6-1.0); GFR 69.4; GLUCOSE 141 mg/dL (70-99); POTASSIUM 4.5 mmol/L (3.5-5.1); SODIUM 139 mmol/L (136-145); TOTAL BILIRUBIN 0.2 mg/dL (0.2-1.0)
[2017-06-22 06:47] LABS: ADD MAN DIFF? YES
[2017-06-22] MEDS: BUDESONIDE 0.5 MG/2 ML NEBU. NEB ×4 (07:15→19:43)
[2017-06-22 07:34] LABS: BASE EXCESS ABG -6 mmol/L (-3-3); HCO3 ABG 22 mmol/L (21-28); PCO2 ABG 52 mmHg (35-46); PH ABG 7.24 (7.35-7.45); PO2 ABG 92 mmHg (65-108); SAT O2 ABG 96 % (92-99)
[2017-06-22] MEDS ORDERED: ENOXAPARIN 30 MG/0.3 ML SYRINGE. SQ ×2 (08:00)
[2017-06-22 08:08] LABS: FIO2 ABG 40
[2017-06-22 09:52] LABS: % LYMPHS 1 % (24-48); % MONOS 1 % (0-10); % SEGS 98 % (35-66)
[2017-06-22 09:53] LABS: PLT ESTIMATE ADEQUATE (ADEQUATE)
[2017-06-22] MEDS: LEVOTHYROXINE 50 MCG TABLET PO ×2 (10:07)
[2017-06-22] MEDS: methylPREDNISolone SOD SUCC PF 125 MG/2 ML VIAL. IV ×2 (10:08)
[2017-06-22] MEDS: VANCOMYCIN PER PHARMACY MC ×2 (11:02)
[2017-06-22] MEDS: ENOXAPARIN 40 MG/0.4 ML SYRINGE. SQ ×2 (15:25)
[2017-06-22 15:46] LABS: POC GLUCOSE 107 mg/dL (70-99)
[2017-06-22] MEDS ORDERED: NOREPINEPHRIN PREMIX 250 ML IV ×2 (17:00)
[2017-06-22] MEDS: OSELTAMIVIR 75 MG CAPSULE PO ×2 (17:39)
[2017-06-22] MEDS: NORMAL SALINE IV (17:42)
[2017-06-22] MEDS: VANCOMYCIN IV (17:42)
[2017-06-22 18:55] LABS: POC GLUCOSE 123 mg/dL (70-99)
[2017-06-22] MEDS ORDERED: 0.9 % SODIUM CHLORIDE 10 ML DISP.SYRIN. IV ×4 (19:30)
[2017-06-22 21:10] LABS: MRSA BY PCR Negative (Negative)
[2017-06-23] MEDS: guaiFENesin ORAL 200 MG/10 ML LIQUID. PO ×14 (00:11→20:11)
[2017-06-23] MEDS: PROPOFOL 100 ML IV ×6 (00:12→18:25)
[2017-06-23] MEDS: methylPREDNISolone SOD SUCC PF 125 MG/2 ML VIAL. IV ×6 (00:12→20:35)
[2017-06-23] MEDS: CHLORHEXIDINE 0.12% 15 ML MOUTHWASH. MM ×6 (00:13→20:35)
[2017-06-23] MEDS: FAMOTIDINE 20 MG/2 ML VIAL IVP ×4 (00:13→20:35)
[2017-06-23 00:38] LABS: POC GLUCOSE 140 mg/dL (70-99)
[2017-06-23] MEDS: INSULIN ASPART 300 UNITS/3 ML INSULN.PEN SQ ×8 (06:16→18:00)
[2017-06-23 06:27] LABS: ADD MAN DIFF? NO
[2017-06-23 06:43] LABS: BASO % 0 % (0-3); EOS % 0 % (0-3); HEMATOCRIT 24.9 % (36.0-47.0); HEMOGLOBIN 7.9 g/dL (12.0-15.5); LYMPH # 0.3 x10^3/uL (1.0-4.8); LYMPH % 4 % (24-48); MEAN CORPUSCULAR HEMOGLOBIN 30 pg (25-35); MEAN CORPUSCULAR HGB CONC 32 g/dL (31-37); MEAN CORPUSCULAR VOLUME 95 fL (79-100); MONO # 0.2 x10^3/uL (0.0-1.1); MONO % 3 % (0-9); NEUT # 5.9 x10^3uL (1.8-7.7); NEUT % 93 % (31-73); PLATELET COUNT 270 x10^3/uL (140-400); RED BLOOD COUNT 2.62 x10^6/uL (3.50-5.40); RED CELL DISTRIBUTION WIDTH 14.8 % (11.5-14.5); WHITE BLOOD COUNT 6.4 x10^3/uL (4.0-11.0)
[2017-06-23 06:55] LABS: ANION GAP 10 (6-14); BLOOD UREA NITROGEN 22 mg/dL (7-20); CALCIUM 7.8 mg/dL (8.5-10.1); CARBON DIOXIDE 21 mmol/L (21-32); CHLORIDE 110 mmol/L (98-107); CREATININE 0.6 mg/dL (0.6-1.0); GFR 96.7; GLUCOSE 203 mg/dL (70-99); SODIUM 141 mmol/L (136-145)
[2017-06-23] MEDS: IPRATRPIUM/ALBUTEROL 0.5/2.5MG 3 ML NEBU. NEB ×8 (07:20→20:10)
[2017-06-23] MEDS: BUDESONIDE 0.5 MG/2 ML NEBU. NEB ×4 (07:21→20:10)
[2017-06-23 07:32] LABS: BASE EXCESS ABG -5 mmol/L (-3-3); HCO3 ABG 21 mmol/L (21-28); PCO2 ABG 44 mmHg (35-46); PH ABG 7.29 (7.35-7.45); PO2 ABG 122 mmHg (65-108); SAT O2 ABG 98 % (92-99)
[2017-06-23 08:13] LABS: FIO2 ABG 40
[2017-06-23 08:14] LABS: POC GLUCOSE 196 mg/dL (70-99)
[2017-06-23] MEDS: OSELTAMIVIR 75 MG CAPSULE PO ×4 (14:46→20:35)
[2017-06-23] MEDS: LEVOTHYROXINE 50 MCG TABLET PO ×2 (14:46)
[2017-06-23] MEDS: ENOXAPARIN 40 MG/0.4 ML SYRINGE. SQ ×2 (14:47)
[2017-06-23 16:20] LABS: POC GLUCOSE 143 mg/dL (70-99)
[2017-06-23 16:43] LABS: VANC TR 4.6 mcg/mL (10.0-20.0)
[2017-06-23] MEDS: VANCOMYCIN PER PHARMACY MC ×2 (17:25)
[2017-06-24] MEDS: guaiFENesin ORAL 200 MG/10 ML LIQUID. PO ×12 (00:08→20:06)
[2017-06-24 00:21] LABS: POC GLUCOSE 164 mg/dL (70-99)
[2017-06-24] MEDS: PROPOFOL 100 ML IV ×8 (03:57→23:29)
[2017-06-24] MEDS: IV NORMAL SALINE 1000ML BAG 1,000 ML IV ×6 (03:57→17:52)
[2017-06-24] MEDS: VANCOMYCIN 1 GM in IV NORMAL SALINE 250ML 250 ML IV (06:00)
[2017-06-24] MEDS: INSULIN ASPART 300 UNITS/3 ML INSULN.PEN SQ ×8 (06:06→17:18)
[2017-06-24 06:17] LABS: POC GLUCOSE 159 mg/dL (70-99)
[2017-06-24 06:21] LABS: ADD MAN DIFF? NO
[2017-06-24 06:37] LABS: BASO % 0 % (0-3); EOS % 0 % (0-3); HEMATOCRIT 24.1 % (36.0-47.0); HEMOGLOBIN 8.2 g/dL (12.0-15.5); LYMPH # 0.4 x10^3/uL (1.0-4.8); LYMPH % 10 % (24-48); MEAN CORPUSCULAR HEMOGLOBIN 33 pg (25-35); MEAN CORPUSCULAR HGB CONC 34 g/dL (31-37); MEAN CORPUSCULAR VOLUME 96 fL (79-100); MONO # 0.2 x10^3/uL (0.0-1.1); MONO % 5 % (0-9); NEUT # 3.6 x10^3uL (1.8-7.7); NEUT % 85 % (31-73); PLATELET COUNT 246 x10^3/uL (140-400); RED BLOOD COUNT 2.52 x10^6/uL (3.50-5.40); RED CELL DISTRIBUTION WIDTH 14.5 % (11.5-14.5); WHITE BLOOD COUNT 4.2 x10^3/uL (4.0-11.0)
[2017-06-24] MEDS: LEVOTHYROXINE 50 MCG TABLET PO ×2 (06:47)
[2017-06-24 06:51] LABS: ANION GAP 9 (6-14); BLOOD UREA NITROGEN 26 mg/dL (7-20); CALCIUM 8.1 mg/dL (8.5-10.1); CARBON DIOXIDE 22 mmol/L (21-32); CHLORIDE 110 mmol/L (98-107); CREATININE 0.6 mg/dL (0.6-1.0); GFR 96.7; GLUCOSE 189 mg/dL (70-99); POTASSIUM 4.3 mmol/L (3.5-5.1); SODIUM 141 mmol/L (136-145)
[2017-06-24] MEDS: methylPREDNISolone SOD SUCC PF 125 MG/2 ML VIAL. IV ×4 (07:47→21:19)
[2017-06-24] MEDS: ENOXAPARIN 40 MG/0.4 ML SYRINGE. SQ ×2 (07:47)
[2017-06-24] MEDS: OSELTAMIVIR 75 MG CAPSULE PO ×4 (07:47→21:19)
[2017-06-24] MEDS: CHLORHEXIDINE 0.12% 15 ML MOUTHWASH. MM ×4 (07:47→21:18)
[2017-06-24] MEDS: IPRATRPIUM/ALBUTEROL 0.5/2.5MG 3 ML NEBU. NEB ×8 (08:45→19:42)
[2017-06-24] MEDS: BUDESONIDE 0.5 MG/2 ML NEBU. NEB ×4 (08:45→19:42)
[2017-06-24 10:29] LABS: BASE EXCESS ABG -4 mmol/L (-3-3); HCO3 ABG 19 mmol/L (21-28); PCO2 ABG 31 mmHg (35-46); PH ABG 7.42 (7.35-7.45); PO2 ABG 185 mmHg (65-108); SAT O2 ABG 99 % (92-99)
[2017-06-24 10:34] LABS: FIO2 ABG 40
[2017-06-24 12:16] LABS: POC GLUCOSE 120 mg/dL (70-99)
[2017-06-24] MEDS ORDERED: MAGNESIUM HYDROXIDE 2,400 MG/30 ML ORAL.SUSP. PO ×2 (15:30)
[2017-06-24 17:23] LABS: POC GLUCOSE 171 mg/dL (70-99)
[2017-06-24] MEDS: SENNOSIDES/DOCUSATE 8.6/50MG TABLET. PO ×2 (21:19)
[2017-06-24] MEDS: DOCUSATE SODIUM 100 MG CAPSULE. PO ×2 (21:19)
[2017-06-24] MEDS: FAMOTIDINE 20 MG/2 ML VIAL IVP ×2 (21:19)
[2017-06-25 00:13] LABS: POC GLUCOSE 127 mg/dL (70-99)
[2017-06-25] MEDS: guaiFENesin ORAL 200 MG/10 ML LIQUID. PO ×12 (00:49→20:35)
[2017-06-25 05:30] LABS: ADD MAN DIFF? NO
[2017-06-25 05:34] LABS: BASO % 0 % (0-3); EOS % 0 % (0-3); HEMATOCRIT 25.8 % (36.0-47.0); HEMOGLOBIN 8.6 g/dL (12.0-15.5); LYMPH # 0.4 x10^3/uL (1.0-4.8); LYMPH % 6 % (24-48); MEAN CORPUSCULAR HEMOGLOBIN 31 pg (25-35); MEAN CORPUSCULAR HGB CONC 33 g/dL (31-37); MEAN CORPUSCULAR VOLUME 94 fL (79-100); MONO # 0.3 x10^3/uL (0.0-1.1); MONO % 4 % (0-9); NEUT % 90 % (31-73); PLATELET COUNT 227 x10^3/uL (140-400); RED BLOOD COUNT 2.75 x10^6/uL (3.50-5.40); RED CELL DISTRIBUTION WIDTH 14.6 % (11.5-14.5); WHITE BLOOD COUNT 6.7 x10^3/uL (4.0-11.0)
[2017-06-25 06:01] LABS: ANION GAP 11 (6-14); BLOOD UREA NITROGEN 28 mg/dL (7-20); CALCIUM 8.3 mg/dL (8.5-10.1); CARBON DIOXIDE 21 mmol/L (21-32); CHLORIDE 109 mmol/L (98-107); CREATININE 0.7 mg/dL (0.6-1.0); GFR 80.9; GLUCOSE 210 mg/dL (70-99); POTASSIUM 4.3 mmol/L (3.5-5.1); SODIUM 141 mmol/L (136-145)
[2017-06-25] MEDS: LEVOTHYROXINE 50 MCG TABLET PO ×2 (06:13)
[2017-06-25] MEDS: INSULIN ASPART 300 UNITS/3 ML INSULN.PEN SQ ×8 (06:14→18:00)
[2017-06-25 06:21] LABS: POC GLUCOSE 175 mg/dL (70-99)
[2017-06-25] MEDS: PROPOFOL 100 ML IV ×6 (06:22→20:41)
[2017-06-25] MEDS: IPRATRPIUM/ALBUTEROL 0.5/2.5MG 3 ML NEBU. NEB ×8 (07:33→19:59)
[2017-06-25] MEDS: BUDESONIDE 0.5 MG/2 ML NEBU. NEB ×4 (07:33→19:59)
[2017-06-25 08:01] LABS: BASE EXCESS ABG -5 mmol/L (-3-3); HCO3 ABG 19 mmol/L (21-28); PCO2 ABG 33 mmHg (35-46); PH ABG 7.38 (7.35-7.45); PO2 ABG 160 mmHg (65-108); SAT O2 ABG 99 % (92-99)
[2017-06-25] MEDS: IV NORMAL SALINE 1000ML BAG 1,000 ML IV ×6 (08:45→20:36)
[2017-06-25] MEDS: DOCUSATE SODIUM 100 MG CAPSULE. PO ×4 (09:00→20:36)
[2017-06-25] MEDS: SENNOSIDES/DOCUSATE 8.6/50MG TABLET. PO ×4 (17:59→20:35)
[2017-06-25] MEDS: ENOXAPARIN 40 MG/0.4 ML SYRINGE. SQ ×2 (17:59)
[2017-06-25] MEDS: CHLORHEXIDINE 0.12% 15 ML MOUTHWASH. MM ×4 (17:59→20:36)
[2017-06-25] MEDS: OSELTAMIVIR 75 MG CAPSULE PO ×4 (17:59→20:35)
[2017-06-25] MEDS: methylPREDNISolone SOD SUCC PF 125 MG/2 ML VIAL. IV ×4 (18:00→20:35)
[2017-06-25 18:18] LABS: POC GLUCOSE 134 mg/dL (70-99)
[2017-06-25] MEDS ORDERED: IPRATRPIUM/ALBUTEROL 0.5/2.5MG 3 ML NEBU. ×2 (19:31)
[2017-06-25] MEDS: FAMOTIDINE 20 MG/2 ML VIAL IVP ×2 (20:35)
[2017-06-26] MEDS: guaiFENesin ORAL 200 MG/10 ML LIQUID. PO ×14 (00:08→23:19)
[2017-06-26 00:15] LABS: POC GLUCOSE 148 mg/dL (70-99)
[2017-06-26] MEDS: PROPOFOL 100 ML IV ×4 (03:20→18:13)
[2017-06-26] MEDS: INSULIN ASPART 300 UNITS/3 ML INSULN.PEN SQ ×8 (06:13→18:00)
[2017-06-26 06:20] LABS: POC GLUCOSE 193 mg/dL (70-99)
[2017-06-26 06:41] LABS: ADD MAN DIFF? NO
[2017-06-26 07:10] LABS: BASO % 0 % (0-3); EOS % 0 % (0-3); HEMATOCRIT 25.1 % (36.0-47.0); HEMOGLOBIN 8.4 g/dL (12.0-15.5); LYMPH # 0.4 x10^3/uL (1.0-4.8); LYMPH % 7 % (24-48); MEAN CORPUSCULAR HEMOGLOBIN 31 pg (25-35); MEAN CORPUSCULAR HGB CONC 33 g/dL (31-37); MEAN CORPUSCULAR VOLUME 94 fL (79-100); MONO # 0.3 x10^3/uL (0.0-1.1); MONO % 5 % (0-9); NEUT # 5.2 x10^3uL (1.8-7.7); NEUT % 87 % (31-73); PLATELET COUNT 218 x10^3/uL (140-400); RED BLOOD COUNT 2.68 x10^6/uL (3.50-5.40); RED CELL DISTRIBUTION WIDTH 14.5 % (11.5-14.5)
[2017-06-26 07:17] LABS: ANION GAP 7 (6-14); BLOOD UREA NITROGEN 29 mg/dL (7-20); CARBON DIOXIDE 24 mmol/L (21-32); CHLORIDE 109 mmol/L (98-107); CREATININE 0.6 mg/dL (0.6-1.0); GFR 96.7; GLUCOSE 213 mg/dL (70-99); POTASSIUM 4.7 mmol/L (3.5-5.1); SODIUM 140 mmol/L (136-145)
[2017-06-26] MEDS: IPRATRPIUM/ALBUTEROL 0.5/2.5MG 3 ML NEBU. NEB ×8 (07:38→20:39)
[2017-06-26] MEDS: BUDESONIDE 0.5 MG/2 ML NEBU. NEB ×4 (07:38→20:39)
[2017-06-26 07:48] LABS: BASE EXCESS ABG -2 mmol/L (-3-3); HCO3 ABG 23 mmol/L (21-28); PCO2 ABG 38 mmHg (35-46); PH ABG 7.39 (7.35-7.45); PO2 ABG 153 mmHg (65-108); SAT O2 ABG 99 % (92-99)
[2017-06-26] MEDS: LEVOTHYROXINE 50 MCG TABLET PO ×2 (08:00)
[2017-06-26] MEDS: methylPREDNISolone SOD SUCC PF 125 MG/2 ML VIAL. IV ×4 (08:00→20:52)
[2017-06-26] MEDS: CHLORHEXIDINE 0.12% 15 ML MOUTHWASH. MM ×4 (08:00→20:52)
[2017-06-26] MEDS: SENNOSIDES/DOCUSATE 8.6/50MG TABLET. PO ×4 (08:00→20:53)
[2017-06-26] MEDS: DOCUSATE SODIUM 100 MG CAPSULE. PO ×4 (08:01→20:53)
[2017-06-26] MEDS: OSELTAMIVIR 75 MG CAPSULE PO ×4 (08:01→20:53)
[2017-06-26] MEDS: ENOXAPARIN 40 MG/0.4 ML SYRINGE. SQ ×2 (08:01)
[2017-06-26 08:04] LABS: FIO2 ABG 40% vent
[2017-06-26] MEDS: IV NORMAL SALINE 1000ML BAG 1,000 ML IV ×4 (08:10→20:53)
[2017-06-26] MEDS: LABETALOL 20 MG/4 ML DISP.SYRIN. IVP ×4 (10:37→18:06)
[2017-06-26 12:07] LABS: BASE EXCESS ABG -2 mmol/L (-3-3); HCO3 ABG 24 mmol/L (21-28); PCO2 ABG 47 mmHg (35-46); PH ABG 7.32 (7.35-7.45); PO2 ABG 130 mmHg (65-108); SAT O2 ABG 98 % (92-99)
[2017-06-26 12:08] LABS: FIO2 ABG 40% vent ps 5 peep 5
[2017-06-26 18:15] LABS: POC GLUCOSE 167 mg/dL (70-99)
[2017-06-26 18:29] LABS: CREATINE KINASE 65 U/L (26-192)
[2017-06-26 18:37] LABS: THYROID STIM HORMONE (TSH) 0.204 uIU/mL (0.358-3.74)
[2017-06-26] MEDS: FAMOTIDINE 20 MG/2 ML VIAL IVP ×2 (20:52)
[2017-06-26] MEDS: MIDAZOLAM HCL/PF 2 MG/2 ML VIAL. IV ×2 (23:19)
[2017-06-26 23:29] LABS: POC GLUCOSE 183 mg/dL (70-99)
[2017-06-27] MEDS: INSULIN ASPART 300 UNITS/3 ML INSULN.PEN SQ ×8 (00:18→17:56)
[2017-06-27] MEDS: LABETALOL 20 MG/4 ML DISP.SYRIN. IVP ×2 (02:22)
[2017-06-27] MEDS: MIDAZOLAM HCL/PF 2 MG/2 ML VIAL. IV ×12 (03:18→14:56)
[2017-06-27] MEDS: guaiFENesin ORAL 200 MG/10 ML LIQUID. PO ×10 (03:43→20:58)
[2017-06-27 05:52] LABS: POC GLUCOSE 173 mg/dL (70-99)
[2017-06-27 05:57] LABS: ADD MAN DIFF? NO
[2017-06-27] MEDS: LEVOTHYROXINE 50 MCG TABLET PO ×2 (06:11)
[2017-06-27 06:23] LABS: BASO % 0 % (0-3); EOS % 0 % (0-3); HEMATOCRIT 26.6 % (36.0-47.0); HEMOGLOBIN 8.8 g/dL (12.0-15.5); LYMPH # 0.9 x10^3/uL (1.0-4.8); LYMPH % 8 % (24-48); MEAN CORPUSCULAR HEMOGLOBIN 31 pg (25-35); MEAN CORPUSCULAR HGB CONC 33 g/dL (31-37); MEAN CORPUSCULAR VOLUME 93 fL (79-100); MONO # 0.9 x10^3/uL (0.0-1.1); MONO % 8 % (0-9); NEUT # 9.6 x10^3uL (1.8-7.7); NEUT % 84 % (31-73); PLATELET COUNT 254 x10^3/uL (140-400); RED BLOOD COUNT 2.86 x10^6/uL (3.50-5.40); RED CELL DISTRIBUTION WIDTH 14.5 % (11.5-14.5); WHITE BLOOD COUNT 11.4 x10^3/uL (4.0-11.0)
[2017-06-27 06:41] LABS: ANION GAP 9 (6-14); BLOOD UREA NITROGEN 29 mg/dL (7-20); CALCIUM 8.6 mg/dL (8.5-10.1); CARBON DIOXIDE 25 mmol/L (21-32); CHLORIDE 108 mmol/L (98-107); CREATININE 0.6 mg/dL (0.6-1.0); GFR 96.7; GLUCOSE 199 mg/dL (70-99); POTASSIUM 4.5 mmol/L (3.5-5.1); SODIUM 142 mmol/L (136-145)
[2017-06-27] MEDS: BUDESONIDE 0.5 MG/2 ML NEBU. NEB ×4 (07:27→19:43)
[2017-06-27] MEDS: IPRATRPIUM/ALBUTEROL 0.5/2.5MG 3 ML NEBU. NEB ×8 (07:27→19:43)
[2017-06-27] MEDS: methylPREDNISolone SOD SUCC PF 125 MG/2 ML VIAL. IV ×4 (08:55→20:58)
[2017-06-27] MEDS: CHLORHEXIDINE 0.12% 15 ML MOUTHWASH. MM ×4 (08:55→20:59)
[2017-06-27] MEDS: ENOXAPARIN 40 MG/0.4 ML SYRINGE. SQ ×2 (08:59)
[2017-06-27] MEDS: SENNOSIDES/DOCUSATE 8.6/50MG TABLET. PO ×4 (09:00→20:58)
[2017-06-27] MEDS: OSELTAMIVIR 75 MG CAPSULE PO ×2 (09:00)
[2017-06-27] MEDS: DOCUSATE SODIUM 100 MG CAPSULE. PO ×4 (09:00→20:58)
[2017-06-27 09:21] LABS: BASE EXCESS ABG 0 mmol/L (-3-3); HCO3 ABG 24 mmol/L (21-28); PCO2 ABG 37 mmHg (35-46); PH ABG 7.44 (7.35-7.45); PO2 ABG 62 mmHg (65-108); SAT O2 ABG 91 % (92-99)
[2017-06-27 09:25] LABS: FIO2 ABG 40
[2017-06-27] MEDS: fentaNYL PF VIAL 100 MCG/2 ML VIAL IV ×8 (10:32→15:30)
[2017-06-27] MEDS: IV NORMAL SALINE 1000ML BAG 1,000 ML IV ×2 (12:32)
[2017-06-27 12:34] LABS: POC GLUCOSE 187 mg/dL (70-99)
[2017-06-27] MEDS: PROPOFOL 100 ML IV ×2 (16:16)
[2017-06-27 17:54] LABS: POC GLUCOSE 164 mg/dL (70-99)
[2017-06-27] MEDS: FAMOTIDINE 20 MG/2 ML VIAL IVP ×2 (20:58)
[2017-06-28] MEDS: guaiFENesin ORAL 200 MG/10 ML LIQUID. PO ×12 (00:21→20:00)
[2017-06-28] MEDS: IV NORMAL SALINE 1000ML BAG 1,000 ML IV ×2 (00:21)
[2017-06-28] MEDS: INSULIN ASPART 300 UNITS/3 ML INSULN.PEN SQ ×8 (00:21→17:20)
[2017-06-28 00:26] LABS: POC GLUCOSE 192 mg/dL (70-99)
[2017-06-28 06:25] LABS: POC GLUCOSE 140 mg/dL (70-99)
[2017-06-28 06:27] LABS: ADD MAN DIFF? NO
[2017-06-28] MEDS: LEVOTHYROXINE 50 MCG TABLET PO ×2 (06:32)
[2017-06-28 06:43] LABS: ANION GAP 8 (6-14); BLOOD UREA NITROGEN 22 mg/dL (7-20); CALCIUM 7.3 mg/dL (8.5-10.1); CARBON DIOXIDE 25 mmol/L (21-32); CHLORIDE 109 mmol/L (98-107); CREATININE 0.5 mg/dL (0.6-1.0); GFR 119.3; GLUCOSE 166 mg/dL (70-99); POTASSIUM 3.9 mmol/L (3.5-5.1); SODIUM 142 mmol/L (136-145)
[2017-06-28 06:57] LABS: BASO # 0.1 x10^3/uL (0.0-0.2); BASO % 1 % (0-3); EOS % 0 % (0-3); HEMATOCRIT 22.4 % (36.0-47.0); HEMOGLOBIN 7.6 g/dL (12.0-15.5); LYMPH # 0.8 x10^3/uL (1.0-4.8); LYMPH % 8 % (24-48); MEAN CORPUSCULAR HEMOGLOBIN 31 pg (25-35); MEAN CORPUSCULAR HGB CONC 34 g/dL (31-37); MEAN CORPUSCULAR VOLUME 92 fL (79-100); MONO # 0.7 x10^3/uL (0.0-1.1); MONO % 8 % (0-9); NEUT # 8.3 x10^3uL (1.8-7.7); NEUT % 84 % (31-73); PLATELET COUNT 200 x10^3/uL (140-400); RED BLOOD COUNT 2.42 x10^6/uL (3.50-5.40); RED CELL DISTRIBUTION WIDTH 14.6 % (11.5-14.5); WHITE BLOOD COUNT 9.8 x10^3/uL (4.0-11.0)
[2017-06-28] MEDS: BUDESONIDE 0.5 MG/2 ML NEBU. NEB ×4 (07:46→19:57)
[2017-06-28] MEDS: IPRATRPIUM/ALBUTEROL 0.5/2.5MG 3 ML NEBU. NEB ×8 (07:46→19:57)
[2017-06-28 08:11] LABS: BASE EXCESS ABG -1 mmol/L (-3-3); HCO3 ABG 21 mmol/L (21-28); PCO2 ABG 27 mmHg (35-46); PH ABG 7.51 (7.35-7.45); PO2 ABG 113 mmHg (65-108); SAT O2 ABG 98 % (92-99)
[2017-06-28 08:15] LABS: FIO2 ABG 40
[2017-06-28 09:41] LABS: VITAMIN-B12 491 pg/mL (247-911)
[2017-06-28] MEDS: CHLORHEXIDINE 0.12% 15 ML MOUTHWASH. MM ×2 (10:47)
[2017-06-28] MEDS: DOCUSATE SODIUM 100 MG CAPSULE. PO ×4 (10:47→21:00)
[2017-06-28] MEDS: SENNOSIDES/DOCUSATE 8.6/50MG TABLET. PO ×4 (10:47→21:00)
[2017-06-28] MEDS: methylPREDNISolone SOD SUCC PF 125 MG/2 ML VIAL. IV ×4 (10:47→21:03)
[2017-06-28] MEDS: ENOXAPARIN 40 MG/0.4 ML SYRINGE. SQ ×2 (10:48)
[2017-06-28] MEDS: FUROSEMIDE 20 MG/2 ML VIAL. IVP ×2 (11:21)
[2017-06-28 11:23] LABS: POC GLUCOSE 149 mg/dL (70-99)
[2017-06-28 17:24] LABS: POC GLUCOSE 169 mg/dL (70-99)
[2017-06-28 19:16] LABS: HEMATOCRIT 26.5 % (36.0-47.0); HEMOGLOBIN 8.8 g/dL (12.0-15.5); MEAN CORPUSCULAR HEMOGLOBIN 31 pg (25-35); MEAN CORPUSCULAR HGB CONC 33 g/dL (31-37); MEAN CORPUSCULAR VOLUME 92 fL (79-100); PLATELET COUNT 286 x10^3/uL (140-400); RED BLOOD COUNT 2.89 x10^6/uL (3.50-5.40); RED CELL DISTRIBUTION WIDTH 14.5 % (11.5-14.5); WHITE BLOOD COUNT 12.7 x10^3/uL (4.0-11.0)
[2017-06-28 19:31] LABS: ANION GAP 8 (6-14); BLOOD UREA NITROGEN 23 mg/dL (7-20); CALCIUM 8.3 mg/dL (8.5-10.1); CARBON DIOXIDE 32 mmol/L (21-32); CHLORIDE 107 mmol/L (98-107); CREATININE 0.5 mg/dL (0.6-1.0); GFR 119.3; GLUCOSE 169 mg/dL (70-99); MAGNESIUM 1.9 mg/dL (1.8-2.4); POTASSIUM 4.2 mmol/L (3.5-5.1); SODIUM 147 mmol/L (136-145)
[2017-06-28 20:16] LABS: BASE EXCESS ABG 6 mmol/L (-3-3); HCO3 ABG 29 mmol/L (21-28); PCO2 ABG 36 mmHg (35-46); PH ABG 7.52 (7.35-7.45); PO2 ABG 106 mmHg (65-108); SAT O2 ABG 98 % (92-99)
[2017-06-28 20:33] LABS: FIO2 ABG 40
[2017-06-28] MEDS: FAMOTIDINE 20 MG/2 ML VIAL IVP ×2 (21:03)
[2017-06-28] MEDS: fentaNYL PF VIAL 100 MCG/2 ML VIAL IV ×2 (21:52)
[2017-06-29 00:12] LABS: POC GLUCOSE 152 mg/dL (70-99)
[2017-06-29] MEDS: ALBUTEROL SULFATE 2.5 MG/3 ML NEBU. NEB ×2 (03:38)
[2017-06-29] MEDS: guaiFENesin ORAL 200 MG/10 ML LIQUID. PO ×12 (04:00→20:00)
[2017-06-29] MEDS: fentaNYL PF VIAL 100 MCG/2 ML VIAL IV ×4 (04:32→19:26)
[2017-06-29] MEDS: INSULIN ASPART 300 UNITS/3 ML INSULN.PEN SQ ×8 (06:00→17:44)
[2017-06-29 06:19] LABS: ADD MAN DIFF? NO
[2017-06-29 06:21] LABS: BASO % 0 % (0-3); EOS % 0 % (0-3); HEMATOCRIT 25.6 % (36.0-47.0); HEMOGLOBIN 8.3 g/dL (12.0-15.5); LYMPH # 0.7 x10^3/uL (1.0-4.8); LYMPH % 7 % (24-48); MEAN CORPUSCULAR HEMOGLOBIN 30 pg (25-35); MEAN CORPUSCULAR HGB CONC 32 g/dL (31-37); MEAN CORPUSCULAR VOLUME 92 fL (79-100); MONO # 0.9 x10^3/uL (0.0-1.1); MONO % 10 % (0-9); NEUT # 7.7 x10^3uL (1.8-7.7); NEUT % 83 % (31-73); PLATELET COUNT 273 x10^3/uL (140-400); RED BLOOD COUNT 2.78 x10^6/uL (3.50-5.40); RED CELL DISTRIBUTION WIDTH 14.7 % (11.5-14.5); WHITE BLOOD COUNT 9.3 x10^3/uL (4.0-11.0)
[2017-06-29 06:35] LABS: POC GLUCOSE 145 mg/dL (70-99)
[2017-06-29 06:47] LABS: ANION GAP 3 (6-14); BLOOD UREA NITROGEN 25 mg/dL (7-20); CALCIUM 7.7 mg/dL (8.5-10.1); CARBON DIOXIDE 33 mmol/L (21-32); CHLORIDE 107 mmol/L (98-107); CREATININE 0.5 mg/dL (0.6-1.0); GFR 119.3; GLUCOSE 157 mg/dL (70-99); SODIUM 143 mmol/L (136-145)
[2017-06-29] MEDS: LEVOTHYROXINE 50 MCG TABLET PO ×2 (07:00)
[2017-06-29] MEDS: IPRATRPIUM/ALBUTEROL 0.5/2.5MG 3 ML NEBU. NEB ×8 (07:40→20:21)
[2017-06-29] MEDS: BUDESONIDE 0.5 MG/2 ML NEBU. NEB ×4 (07:40→20:21)
[2017-06-29 08:12] LABS: BASE EXCESS ABG 5 mmol/L (-3-3); HCO3 ABG 29 mmol/L (21-28); PCO2 ABG 40 mmHg (35-46); PH ABG 7.48 (7.35-7.45); PO2 ABG 117 mmHg (65-108); SAT O2 ABG 98 % (92-99)
[2017-06-29 09:00] LABS: FIO2 ABG 40
[2017-06-29] MEDS: DOCUSATE SODIUM 100 MG CAPSULE. PO ×4 (09:00→21:00)
[2017-06-29] MEDS: SENNOSIDES/DOCUSATE 8.6/50MG TABLET. PO ×4 (09:00→21:00)
[2017-06-29] MEDS: methylPREDNISolone SOD SUCC PF 125 MG/2 ML VIAL. IV ×4 (09:40→20:58)
[2017-06-29] MEDS: ENOXAPARIN 40 MG/0.4 ML SYRINGE. SQ ×2 (09:41)
[2017-06-29] MEDS: DICLOFENAC SODIUM 1% TOPICAL GEL 100GM TUBE. TP ×4 (10:06→21:05)
[2017-06-29 11:39] LABS: POC GLUCOSE 121 mg/dL (70-99)
[2017-06-29 17:49] LABS: POC GLUCOSE 131 mg/dL (70-99)
[2017-06-29] MEDS: FAMOTIDINE 20 MG/2 ML VIAL IVP ×2 (20:57)
[2017-06-30 00:15] LABS: POC GLUCOSE 137 mg/dL (70-99)
[2017-06-30] MEDS: fentaNYL PF VIAL 100 MCG/2 ML VIAL IV ×4 (01:08→04:18)
[2017-06-30] MEDS: guaiFENesin ORAL 200 MG/10 ML LIQUID. PO ×12 (04:00→20:00)
[2017-06-30] MEDS: INSULIN ASPART 300 UNITS/3 ML INSULN.PEN SQ ×8 (06:00→18:00)
[2017-06-30 06:10] LABS: POC GLUCOSE 136 mg/dL (70-99)
[2017-06-30 06:34] LABS: ANION GAP 6 (6-14); BLOOD UREA NITROGEN 29 mg/dL (7-20); CALCIUM 8.5 mg/dL (8.5-10.1); CARBON DIOXIDE 31 mmol/L (21-32); CHLORIDE 108 mmol/L (98-107); CREATININE 0.5 mg/dL (0.6-1.0); GFR 119.3; GLUCOSE 142 mg/dL (70-99); MAGNESIUM 2.2 mg/dL (1.8-2.4); POTASSIUM 4.3 mmol/L (3.5-5.1); SODIUM 145 mmol/L (136-145)
[2017-06-30] MEDS: LEVOTHYROXINE 50 MCG TABLET PO ×2 (07:00)
[2017-06-30 07:26] LABS: BASO % 0 % (0-3); EOS % 0 % (0-3); HEMATOCRIT 25.1 % (36.0-47.0); HEMOGLOBIN 8.3 g/dL (12.0-15.5); LYMPH # 0.6 x10^3/uL (1.0-4.8); LYMPH % 7 % (24-48); MEAN CORPUSCULAR HEMOGLOBIN 31 pg (25-35); MEAN CORPUSCULAR HGB CONC 33 g/dL (31-37); MEAN CORPUSCULAR VOLUME 93 fL (79-100); MONO # 0.7 x10^3/uL (0.0-1.1); MONO % 8 % (0-9); NEUT # 7.9 x10^3uL (1.8-7.7); NEUT % 85 % (31-73); PLATELET COUNT 288 x10^3/uL (140-400); RED BLOOD COUNT 2.71 x10^6/uL (3.50-5.40); RED CELL DISTRIBUTION WIDTH 14.5 % (11.5-14.5); WHITE BLOOD COUNT 9.2 x10^3/uL (4.0-11.0)
[2017-06-30 07:28] LABS: ADD MAN DIFF? YES
[2017-06-30] MEDS: DOCUSATE SODIUM 100 MG CAPSULE. PO ×6 (08:19→20:11)
[2017-06-30] MEDS: SENNOSIDES/DOCUSATE 8.6/50MG TABLET. PO ×6 (08:19→20:11)
[2017-06-30] MEDS: IPRATRPIUM/ALBUTEROL 0.5/2.5MG 3 ML NEBU. NEB ×8 (09:04→20:51)
[2017-06-30] MEDS: BUDESONIDE 0.5 MG/2 ML NEBU. NEB ×4 (09:04→20:50)
[2017-06-30] MEDS ORDERED: PNEUMOCOCCAL VAX SCREEN BY RX. MC ×2 (10:45)
[2017-06-30] MEDS ORDERED: INFLUENZA VAX SCREEN BY RX. MC ×2 (10:45)
[2017-06-30] MEDS: ENOXAPARIN 40 MG/0.4 ML SYRINGE. SQ ×2 (11:27)
[2017-06-30] MEDS: methylPREDNISolone SOD SUCC PF 125 MG/2 ML VIAL. IV ×4 (11:27→20:11)
[2017-06-30] MEDS: DICLOFENAC SODIUM 1% TOPICAL GEL 100GM TUBE. TP ×4 (11:28→20:53)
[2017-06-30] MEDS: FLU VACC QS2017-18 (36MOS+)/PF 0.5 ML SYRINGE. VAX IM ×2 (12:00)
[2017-06-30 12:45] LABS: % LYMPHS 3 % (24-48); % MONOS 3 % (0-10); % SEGS 94 % (35-66); PLT ESTIMATE ADEQUATE (ADEQUATE)
[2017-06-30 12:46] LABS: ANISOCYTOSIS PRESENT; POLYCHROMASIA PRESENT
[2017-06-30 18:42] LABS: POC GLUCOSE 145 mg/dL (70-99)
[2017-06-30] MEDS: FAMOTIDINE 20 MG/2 ML VIAL IVP ×2 (20:11)
[2017-07-01 00:15] LABS: POC GLUCOSE 167 mg/dL (70-99)
[2017-07-01] MEDS: guaiFENesin ORAL 200 MG/10 ML LIQUID. PO ×8 (00:16→12:03)
[2017-07-01] MEDS: INSULIN ASPART 300 UNITS/3 ML INSULN.PEN SQ ×8 (05:30→12:03)
[2017-07-01 05:33] LABS: POC GLUCOSE 148 mg/dL (70-99)
[2017-07-01] MEDS: LEVOTHYROXINE 50 MCG TABLET PO ×2 (06:06)
[2017-07-01] MEDS: IPRATRPIUM/ALBUTEROL 0.5/2.5MG 3 ML NEBU. NEB ×4 (07:19→11:19)
[2017-07-01] MEDS: BUDESONIDE 0.5 MG/2 ML NEBU. NEB ×2 (07:20)
[2017-07-01] MEDS: DICLOFENAC SODIUM 1% TOPICAL GEL 100GM TUBE. TP ×2 (08:08)
[2017-07-01] MEDS: methylPREDNISolone SOD SUCC PF 125 MG/2 ML VIAL. IV ×2 (08:09)
[2017-07-01] MEDS: SENNOSIDES/DOCUSATE 8.6/50MG TABLET. PO ×2 (08:11)
[2017-07-01] MEDS: DOCUSATE SODIUM 100 MG CAPSULE. PO ×2 (08:11)
[2017-07-01] MEDS: ENOXAPARIN 40 MG/0.4 ML SYRINGE. SQ ×2 (08:11)
[2017-07-01] MEDS: ONDANSETRON PF 4 MG/2 ML VIAL. IV ×2 (10:09)
[2017-07-01 12:04] LABS: POC GLUCOSE 114 mg/dL (70-99)
[2017-07-01] MEDS: PANTOPRAZOLE 40 MG TABLET.DR. PO ×2 (12:33)
[2017-07-01] MEDS: ACETAMINOPHEN 325 MG TABLET. PO ×2 (12:33)
[2017-07-01] MEDS: FUROSEMIDE 40 MG/4 ML VIAL. IVP ×2 (13:21)
== END 2017-07-01 13:30 | DRG 870 ==
LOC: 6 SOUTH 06-30 19:27 → ER 14:12 → 1 WEST ICU 15:51
PROC: 0BH17EZ Insertion of Endotracheal Airway into Trachea, Via Natural or Artificial Opening (ICD-10-PCS; principal; 2017-06-21)
PROC: 5A1955Z Respiratory Ventilation, Greater than 96 Consecutive Hours (ICD-10-PCS; 2017-06-21)
PROC: 02HV33Z Insertion of Infusion Device into Superior Vena Cava, Percutaneous Approach (ICD-10-PCS; 2017-06-23)
DX: A41.9 Sepsis, unspecified organism (principal); J96.21 Acute and chronic respiratory failure with hypoxia; E46 Unspecified protein-calorie malnutrition; G92 Toxic encephalopathy; D62 Acute posthemorrhagic anemia; E11.22 Type 2 diabetes mellitus with diabetic chronic kidney disease; I13.0 Hypertensive heart and chronic kidney disease with heart failure and stage 1 through stage 4 chronic kidney disease, or unspecified chronic kidney disease; I50.9 Heart failure, unspecified; J44.1 Chronic obstructive pulmonary disease with (acute) exacerbation; J45.901 Unspecified asthma with (acute) exacerbation; F41.1 Generalized anxiety disorder; J10.1 Influenza due to other identified influenza virus with other respiratory manifestations; K59.00 Constipation, unspecified; N18.9 Chronic kidney disease, unspecified; R65.20 Severe sepsis without septic shock; Z87.891 Personal history of nicotine dependence; Z88.0 Allergy status to penicillin; Z88.2 Allergy status to sulfonamides
CPT/HCPCS: 36415; 36569; 36600; 51702; 70551; 71045; 71275; 80047; 80048; 80053; 80202; 81001; 82306; 82550; 82607; 82805; 82962; 83605; 83735; 83880; 84439; 84443; 84481; 84484; 85007; 85025; 85027; 85610; 87040; 87641; 87804; 87804-59; 92526-GN; 92610-GN; 93005; 94002; 94003; 94640; 94660; 94760; 95816; 96361; 96365; 96375; 97163-GP; 97166-GO; 97530-GP; 97535-GO; 99285-25; J0330; J1650; J1815; J1940; J1956; J2060; J2250; J2405; J2704; J2930; J3010; J3370; J3490; J7030; J7050; J7613; J7620; J7626; Q9967; S0028

== ENCOUNTER 2018-09-21 10:12 | Inpatient (IN) | payer MEDICARE, OTHER ==
[~2018-09-21] VITALS: Ht 160 cm; Wt 61.7 kg
[2018-09-21] VITALS (15 sets, daily range): BP systolic 95–121; BP diastolic 45–80
[~2018-09-21 10:12] MED LIST changes: +GUAI600T47 PO; +LEVO250T25 PO; +LEVO50TA5 PO; -LOSA25TA4 PO; +LOSA25TA54 PO; +PRED20TA PO
[2018-09-21] MEDS ORDERED: ETOMIDATE 20 MG/10 ML VIAL. IV ONE ×2 (10:27→12:00)
[2018-09-21] MEDS ORDERED: SUCCINYLCHOLINE 200 MG/10 ML VIAL. ONE (10:27)
[2018-09-21] MEDS ORDERED: MIDAZOLAM HCL/PF 5 MG/5 ML VIAL. ONE (10:28)
[2018-09-21] MEDS ORDERED: PROPOFOL 50 ML IV ONE (10:40)
[2018-09-21] MEDS ORDERED: IV NORMAL SALINE 1000ML BAG 1,000 ML IV SCH (10:48)
[2018-09-21] MEDS ORDERED: methylPREDNISolone SOD SUCC PF 125 MG/2 ML VIAL. IV ONE (11:00)
[2018-09-21] MEDS ORDERED: PROPOFOL 10 MG/ML (20ML) VIAL. IV ONE (11:00)
[2018-09-21] MEDS ORDERED: IPRATRPIUM/ALBUTEROL 0.5/2.5MG 3 ML NEBU. NEB ONE (11:00)
[2018-09-21 11:03] LABS: BASO # 0.2 x10^3/uL (0.0-0.2); BASO % 2 % (0-3); EOS # 0.6 x10^3/uL (0.0-0.7); EOS % 7 % (0-3); HEMATOCRIT 22.6 % (36.0-47.0); LYMPH # 4.6 x10^3/uL (1.0-4.8); LYMPH % 52 % (24-48); MEAN CORPUSCULAR HEMOGLOBIN 22 pg (25-35); MEAN CORPUSCULAR HGB CONC 29 g/dL (31-37); MEAN CORPUSCULAR VOLUME 76 fL (79-100); MONO # 0.8 x10^3/uL (0.0-1.1); MONO % 10 % (0-9); NEUT # 2.7 x10^3uL (1.8-7.7); NEUT % 30 % (31-73); PLATELET COUNT 462 x10^3/uL (140-400); RED BLOOD COUNT 2.99 x10^6/uL (3.50-5.40); RED CELL DISTRIBUTION WIDTH 23.7 % (11.5-14.5); WHITE BLOOD COUNT 8.9 x10^3/uL (4.0-11.0)
--- NOTE | 2018-09-21 11:05 | EKG ---
[facility] [address] [place] [address] Test Date: 2018-09-21 Test Time: 10:31:46 Pat Name: NASIR ESCALONA Department: Room: Gender: F Receiving Lead: : 1940 Requested By: MARIANNE HIGGINS Order Number: [id number] Reading MD: Ricardo Blackmon Measurements Intervals [place] Rate: 121 P: 77 NM: 104 QRS: 43 QRSD: 86 T: 71 QT: 324 QTc: 463 Interpretive Statements SINUS TACHYCARDIA VENTRICULAR PREMATURE COMPLEX(ES) ATRIAL PREMATURE COMPLEX(ES) LOW LIMB LEAD VOLTAGE NONSPECIFIC ST-T WAVE CHANGES. Electronically Signed On 09-23-2018 9:53:36 CDT by Ricardo Blackmon
[2018-09-21 11:10] LABS: BASE EXCESS ABG -9 mmol/L (-3-3); HCO3 ABG 22 mmol/L (21-28); PO2 ABG 468 mmHg (65-108); SAT O2 ABG 100 % (92-99)
--- NOTE | 2018-09-21 11:10 | RAD ---
Portable chest, 09/21/2018, 10:06 AM: HISTORY: Post code, check tubes Comparison is made to a study from 07/01/2017. The tip of the ET tube lies at the origin of the right main bronchus. It is partially obscured by overlying EKG leads. The distal aspect of the NG tube is coiled in a moderate-sized hiatal hernia above the level the diaphragm. The heart is at the upper limits of normal in size. There is calcific plaquing the aorta. No pulmonary consolidation is seen. There is no evidence of pleural fluid or pneumothorax. IMPRESSION: 1. Malposition of ET tube with its tip lying at the origin of the right main bronchus. 2. The distal aspect of the NG tube is coiled in a moderate sized hiatal hernia. 3. No acute infiltrates. Electronically signed by: Rafael Reid MD (09/21/2018 11:07 AM) [facility]
[2018-09-21 11:11] LABS: PCO2 ABG 92 mmHg (35-46)
--- NOTE | 2018-09-21 11:11 | RAD ---
Portable chest, 09/21/2018, 10:16 AM: HISTORY: Follow-up tube placements, postcode Comparison is made to the study of earlier the same day. The ET tube has been repositioned with its tip now lying 5 cm above the mitch. The NG tube is unchanged in position with its distal end coiled in a moderate-sized hiatal hernia. No pulmonary infiltrate is seen. There is no evidence of pneumothorax or pleural fluid. IMPRESSION: 1. The ET tube is now in satisfactory position. 2. No other significant change since earlier in the day. Electronically signed by: Rafael Reid MD (09/21/2018 11:08 AM) [facility]
[2018-09-21 11:12] LABS: FIO2 ABG 100
[2018-09-21 11:13] LABS: CALCIUM 8.6 mg/dL (8.5-10.1); GFR 53.3; POTASSIUM 5.1 mmol/L (3.5-5.1)
--- NOTE | 2018-09-21 11:14 | PHYS DOC ---
Past Medical History Past Medical History: COPD, Other Additional Past Medical Histor: INTUBATIONS Past Surgical History: Other Additional Past Surgical Histo: STOMACH SX Alcohol Use: None Drug Use: None Adult General Chief Complaint Chief Complaint: RESP ARREST HPI HPI Patient is a 78 year old female who presents to the ED in respiratory arrest. EMS reports patient belle a Hx of COPD, and found patient seated on her bed, taking her second straight duoneb. Her respiratory status deteriorated during transport, and after initially being responsive and conversive, patient became unresponsive during transport with respiratory failure/arrest, and was bagged by EMS. Pt was assessed on arrival noted to have agonal respirations as well as JVD, minimal breath sounds bilaterally. Pt intubated on arrival CXR performed- initially, ETT deep, NG tube in esophagus, ETT withdrawan, NG tube re- mainupulated, but unchanged on repeat XR, so removed. no evidence PTX on CXR. Review of Systems Review of Systems unable to obtain secondary to unresponsiveness. Current Medications Current Medications Current Medications Medications (Trade) Dose Ordered Sig/Jennifer Start Time Stop Time Status Last Admin Dose Admin Albuterol/ Ipratropium (Duoneb) 3 ml 1X ONCE 09/21/18 11:00 09/21/18 11:01 DC 09/21/18 11:00 3 ML Etomidate (Amidate) 20 mg STK-MED ONCE 09/21/18 10:27 09/21/18 10:28 DC Methylprednisolone Sodium Succinate (SOLU-Medrol 125MG VIAL) 125 mg 1X ONCE 09/21/18 11:00 09/21/18 11:01 DC 09/21/18 11:14 125 MG Midazolam HCl (Versed) 2 mg STK-MED ONCE 09/21/18 11:46 09/21/18 11:47 DC Propofol (Diprivan) 200 mg 1X ONCE 09/21/18 11:00 09/21/18 11:01 DC 09/21/18 10:45 200 MG Sodium Chloride 1,000 ml @ 1,000 mls/hr Q1H 09/21/18 10:48 09/21/18 11:47 DC 09/21/18 11:11 1,000 MLS/HR Succinylcholine Chloride (Anectine) 200 mg STK-MED ONCE 09/21/18 10:27 09/21/18 10:28 DC Allergies Allergies Allergies Coded Allergies Type Severity Reaction Last Updated Verified Penicillins Allergy Intermediate 06/22/17 Yes Sulfa (Sulfonamide Antibiotics) Allergy Intermediate 06/22/17 Yes Physical Exam Physical Exam Constitutional: Thin, unresponsive [] HENT: Normocephalic, atraumatic, bilateral external ears normal, oropharynx moist, no oral exudates, nose normal. [] Eyes: PERRLA, EOMI, conjunctiva normal, no discharge. [] Neck: Normal range of motion, no tenderness, supple, no stridor. + JVD is present. [] Cardiovascular:Heart rate regular rhythm, no murmur [] Lungs & Thorax: globally diminished air movement with agonal respirations. [] Abdomen: Bowel sounds normal, soft, no tenderness, no masses, no pulsatile masses. [] Skin: Warm, dry, no erythema, no rash. [] Back: No tenderness, no CVA tenderness. [] Extremities: No tenderness, no cyanosis, no clubbing, ROM intact, no edema. [] Neurologic: Pt unresponsive. [] Current Patient Data Vital Signs Vital Signs Date Time Temp Pulse Resp B/P (MAP) Pulse Ox O2 Delivery O2 Flow Rate FiO2 09/21/18 11:31 93 24 76/45 (55) 99 Ventilator 09/21/18 10:38 97.5 15.0 97.5 Lab Values Laboratory Tests Test 09/21/18 10:18 09/21/18 10:20 09/21/18 11:00 09/21/18 11:22 White Blood Count 8.9 x10^3/uL (4.0-11.0) Red Blood Count 2.99 x10^6/uL (3.50-5.40) L Hemoglobin 6.6 g/dL (12.0-15.5) *L Hematocrit 22.6 % (36.0-47.0) L Mean Corpuscular Volume 76 fL (79-100) L Mean Corpuscular Hemoglobin 22 pg (25-35) L Mean Corpuscular Hemoglobin Concent 29 g/dL (31-37) L Red Cell Distribution Width 23.7 % (11.5-14.5) H Platelet Count 462 x10^3/uL (140-400) H Neutrophils (%) (Auto) 30 % (31-73) L Lymphocytes (%) (Auto) 52 % (24-48) H Monocytes (%) (Auto) 10 % (0-9) H Eosinophils (%) (Auto) 7 % (0-3) H Basophils (%) (Auto) 2 % (0-3) Neutrophils # (Auto) 2.7 x10^3uL (1.8-7.7) Lymphocytes # (Auto) 4.6 x10^3/uL (1.0-4.8) Monocytes # (Auto) 0.8 x10^3/uL (0.0-1.1) Eosinophils # (Auto) 0.6 x10^3/uL (0.0-0.7) Basophils # (Auto) 0.2 x10^3/uL (0.0-0.2) Platelet Estimate Pending Prothrombin Time 14.0 SEC (11.7-14.0) Prothrombin Time INR 1.1 (0.8-1.1) Sodium Level 143 mmol/L (136-145) Potassium Level 5.1 mmol/L (3.5-5.1) Chloride Level 107 mmol/L (98-107) Carbon Dioxide Level 26 mmol/L (21-32) Anion Gap 10 (6-14) Blood Urea Nitrogen 20 mg/dL (7-20) Creatinine 1.0 mg/dL (0.6-1.0) Estimated GFR (Cockcroft-Gault) 53.3 BUN/Creatinine Ratio 20 (6-20) Glucose Level 316 mg/dL (70-99) H Calcium Level 8.6 mg/dL (8.5-10.1) Magnesium Level 2.3 mg/dL (1.8-2.4) Total Bilirubin 0.2 mg/dL (0.2-1.0) Aspartate Amino Transferase (AST) 34 U/L (15-37) Alanine Aminotransferase (ALT) 27 U/L (14-59) Alkaline Phosphatase 84 U/L (46-116) Troponin I Quantitative < 0.017 ng/mL (0.000-0.055) Total Protein 6.0 g/dL (6.4-8.2) L Albumin 3.3 g/dL (3.4-5.0) L Albumin/Globulin Ratio 1.2 (1.0-1.7) O2 Saturation 100 % (92-99) H 82 % (92-99) L Arterial Blood pH 7.00 (7.35-7.45) *L 7.24 (7.35-7.45) L Arterial Blood pCO2 at Patient Temp 92 mmHg (35-46) *H 57 mmHg (35-46) H Arterial Blood pO2 at Patient Temp 468 mmHg (65-108) H 60 mmHg (65-108) L Arterial Blood HCO3 22 mmol/L (21-28) 24 mmol/L (21-28) Arterial Blood Base Excess -9 mmol/L (-3-3) L -4 mmol/L (-3-3) L FiO2 100 40 Urine Opiates Screen Neg (NEG) Urine Methadone Screen Neg (NEG) Urine Barbiturates Neg (NEG) Urine Phencyclidine Screen Neg (NEG) Urine Amphetamine/Methamphetamine Neg (NEG) Urine Benzodiazepines Screen Pos (NEG) Urine Cocaine Screen Neg (NEG) Urine Cannabinoids Screen Neg (NEG) Urine Ethyl Alcohol Neg (NEG) Laboratory Tests 09/21/18 10:18 Laboratory Tests 09/21/18 10:18 EKG EKG sinus tach @ 121 BPM, normal axis, normal intervals, rare PVC, no acute ischemic ST/T Changes, NSSTT present[] Radiology/Procedures Radiology/Procedures [PROCEDURE: PORTABLE CHEST 1V Portable chest, 09/21/2018, 10:06 AM: HISTORY: Post code, check tubes Comparison is made to a study from 07/01/2017. The tip of the ET tube lies at the origin of the right main bronchus. It is partially obscured by overlying EKG leads. The distal aspect of the NG tube is coiled in a moderate-sized hiatal hernia above the level the diaphragm. The heart is at the upper limits of normal in size. There is calcific plaquing the aorta. No pulmonary consolidation is seen. There is no evidence of pleural fluid or pneumothorax. IMPRESSION: 1. Malposition of ET tube with its tip lying at the origin of the right main bronchus. 2. The distal aspect of the NG tube is coiled in a moderate sized hiatal hernia. 3. No acute infiltrates.] PROCEDURE: PORTABLE CHEST 1V Portable chest, 09/21/2018, 10:16 AM: HISTORY: Follow-up tube placements, postcode Comparison is made to the study of earlier the same day. The ET tube has been repositioned with its tip now lying 5 cm above the mitch. The NG tube is unchanged in position with its distal end coiled in a moderate-sized hiatal hernia. No pulmonary infiltrate is seen. There is no evidence of pneumothorax or pleural fluid. IMPRESSION: 1. The ET tube is now in satisfactory position. 2. No other significant change since earlier in the day. Course & Med Decision Making Course & Med Decision Making Pertinent Labs and Imaging studies reviewed. (See chart for details) []Intubation procedure Note" Pt was given 20mg Etomidate, no paralytic, and intubated with 7.5 ETT, with + color change, good BS bilaterally. 11:40:The patient's condition remains stable. I spoke with the hospitalist, who accepted the patient to the hospital for further evaluation and treatment. I also spoke with Dr. Buchanan, pulmonary. The patient did initially receive propofol for sedation but this resulted in hypotension, which was treated with IV fluids and stopping the propofol. The patient's blood pressure has improved to approximately 90 systolic at this time, she did require Versed again for sedation, and will be given a Versed drip at this time. Her mental status seems to have improved after treatment with positive pressure ventilation. CRITICAL CARE TIME: [45] Minutes, excluding any procedures and care of other patients. Dragon Disclaimer Dragon Disclaimer This electronic medical record was generated, in whole or in part, using a voice recognition dictation system. Departure Departure Impression: Primary Impression: Acute respiratory failure Additional Impressions: Hypercarbia COPD (chronic obstructive pulmonary disease) Disposition: 09 ADMITTED INPATIENT Admitting Physician: Varsha Henry Condition: CRITICAL Referrals: MATTHEW BCUK (PCP) Problem Qualifiers MARIANNE HIGGINS MD September 21, 2018 11:14
[2018-09-21 11:15] LABS: HEMOGLOBIN 6.6 g/dL (12.0-15.5)
[2018-09-21 11:16] LABS: ALBUMIN 3.3 g/dL (3.4-5.0); ALBUMIN/GLOBULIN RATIO 1.2 (1.0-1.7); MAGNESIUM 2.3 mg/dL (1.8-2.4); TOTAL BILIRUBIN 0.2 mg/dL (0.2-1.0)
[2018-09-21 11:19] LABS: BARBITURATES NEG (NEG); BENZODIAZEPINES POS (NEG); CANNABINOIDS NEG (NEG); COCAINE NEG (NEG); METHADONE NEG (NEG); OPIATES NEG (NEG); PHENCYCLIDINE NEG (NEG)
[2018-09-21 11:20] LABS: AMPHETAMINE/METHAMPHETAMINE NEG (NEG)
[2018-09-21 11:22] LABS: BASE EXCESS ABG -4 mmol/L (-3-3); HCO3 ABG 24 mmol/L (21-28); PCO2 ABG 57 mmHg (35-46); PO2 ABG 60 mmHg (65-108); SAT O2 ABG 82 % (92-99)
[2018-09-21 11:28] LABS: FIO2 ABG 40
[2018-09-21] MEDS ORDERED: MIDAZOLAM HCL/PF 2 MG/2 ML VIAL. ONE (11:46)
[2018-09-21] MEDS ORDERED: MIDAZOLAM HCL/PF 5 MG/5 ML VIAL. IV ONE ×3 (12:00→13:00)
[2018-09-21] MEDS ORDERED: MIDAZOLAM 100mg/100ml NS BAG 100 ML IV ONE (12:00)
[2018-09-21 12:46] LABS: % ATYL 4 % (0-0); % BANDS 4 % (0-9); % BASOS 1 % (0-3); % EOS 11 % (0-5); % LYMPHS 49 % (24-48); % METAS 1 % (0-0); % MONOS 9 % (0-10); % SEGS 21 % (35-66)
[2018-09-21 12:47] LABS: HYPOCHROMIA MOD; PLT ESTIMATE INCREASED (ADEQUATE)
[2018-09-21 12:48] LABS: ANISOCYTOSIS MOD; MICROCYTOSIS MOD; POIKILOCYTOSIS SLIGHT; SCHISTOCYTES FEW; TARGET CELLS FEW
[2018-09-21 13:00] LABS: FECAL OB PT POSITIVE (NEG)
[2018-09-21] MEDS ORDERED: MIDAZOLAM 100mg/100ml NS BAG 100 ML IV PRN (13:00)
[2018-09-21 13:13] LABS: BASE EXCESS ABG -2 mmol/L (-3-3); HCO3 ABG 21 mmol/L (21-28); PCO2 ABG 30 mmHg (35-46); PO2 ABG 168 mmHg (65-108); SAT O2 ABG 99 % (92-99)
[2018-09-21 13:58] LABS: FIO2 ABG 40
--- NOTE | 2018-09-21 14:43 | PDOC ---
PULMONARY PROGRESS NOTES Vitals Vital Signs Date Time Temp Pulse Resp B/P (MAP) Pulse Ox O2 Delivery O2 Flow Rate FiO2 09/21/18 14:37 98.4 79 14 106/50 (68) 100 Ventilator 98.4 09/21/18 14:17 15.0 General: Alert, No acute distress HEENT: Other Lungs: Wheezing Cardiovascular: S1, S2 Abdomen: Soft, Non-tender Extremities: No Edema Labs Laboratory Tests Test 09/21/18 10:18 09/21/18 10:20 09/21/18 11:00 09/21/18 11:15 White Blood Count 8.9 x10^3/uL (4.0-11.0) Red Blood Count 2.99 x10^6/uL (3.50-5.40) Hemoglobin 6.6 g/dL (12.0-15.5) Hematocrit 22.6 % (36.0-47.0) Mean Corpuscular Volume 76 fL (79-100) Mean Corpuscular Hemoglobin 22 pg (25-35) Mean Corpuscular Hemoglobin Concent 29 g/dL (31-37) Red Cell Distribution Width 23.7 % (11.5-14.5) Platelet Count 462 x10^3/uL (140-400) Neutrophils (%) (Auto) 30 % (31-73) Lymphocytes (%) (Auto) 52 % (24-48) Monocytes (%) (Auto) 10 % (0-9) Eosinophils (%) (Auto) 7 % (0-3) Basophils (%) (Auto) 2 % (0-3) Neutrophils # (Auto) 2.7 x10^3uL (1.8-7.7) Lymphocytes # (Auto) 4.6 x10^3/uL (1.0-4.8) Monocytes # (Auto) 0.8 x10^3/uL (0.0-1.1) Eosinophils # (Auto) 0.6 x10^3/uL (0.0-0.7) Basophils # (Auto) 0.2 x10^3/uL (0.0-0.2) Segmented Neutrophils % 21 % (35-66) Band Neutrophils % 4 % (0-9) Lymphocytes % 49 % (24-48) Atypical Lymphocytes % (Manual) 4 % (0-0) Monocytes % 9 % (0-10) Eosinophils % 11 % (0-5) Basophils % 1 % (0-3) Metamyelocytes % 1 % (0-0) Platelet Estimate Increased (ADEQUATE) Hypochromasia Mod Poikilocytosis Slight Anisocytosis Mod Microcytosis Mod Target Cells Few Schistocytes Few Prothrombin Time 14.0 SEC (11.7-14.0) Prothromb Time International Ratio 1.1 (0.8-1.1) Sodium Level 143 mmol/L (136-145) Potassium Level 5.1 mmol/L (3.5-5.1) Chloride Level 107 mmol/L (98-107) Carbon Dioxide Level 26 mmol/L (21-32) Anion Gap 10 (6-14) Blood Urea Nitrogen 20 mg/dL (7-20) Creatinine 1.0 mg/dL (0.6-1.0) Estimated GFR (Cockcroft-Gault) 53.3 BUN/Creatinine Ratio 20 (6-20) Glucose Level 316 mg/dL (70-99) Calcium Level 8.6 mg/dL (8.5-10.1) Magnesium Level 2.3 mg/dL (1.8-2.4) Total Bilirubin 0.2 mg/dL (0.2-1.0) Aspartate Amino Transf (AST/SGOT) 34 U/L (15-37) Alanine Aminotransferase (ALT/SGPT) 27 U/L (14-59) Alkaline Phosphatase 84 U/L (46-116) Troponin I Quantitative < 0.017 ng/mL (0.000-0.055) Total Protein 6.0 g/dL (6.4-8.2) Albumin 3.3 g/dL (3.4-5.0) Albumin/Globulin Ratio 1.2 (1.0-1.7) O2 Saturation 100 % (92-99) Arterial Blood pH 7.00 (7.35-7.45) Arterial Blood pCO2 at Patient Temp 92 mmHg (35-46) Arterial Blood pO2 at Patient Temp 468 mmHg (65-108) Arterial Blood HCO3 22 mmol/L (21-28) Arterial Blood Base Excess -9 mmol/L (-3-3) FiO2 100 Urine Opiates Screen Neg (NEG) Urine Methadone Screen Neg (NEG) Urine Barbiturates Neg (NEG) Urine Phencyclidine Screen Neg (NEG) Urine Amphetamine/Methamphetamine Neg (NEG) Urine Benzodiazepines Screen Pos (NEG) Urine Cocaine Screen Neg (NEG) Urine Cannabinoids Screen Neg (NEG) Urine Ethyl Alcohol Neg (NEG) Stool Occult Blood Positive (NEG) Test 09/21/18 11:22 09/21/18 13:10 O2 Saturation 82 % (92-99) 99 % (92-99) Arterial Blood pH 7.24 (7.35-7.45) 7.48 (7.35-7.45) Arterial Blood pCO2 at Patient Temp 57 mmHg (35-46) 30 mmHg (35-46) Arterial Blood pO2 at Patient Temp 60 mmHg (65-108) 168 mmHg (65-108) Arterial Blood HCO3 24 mmol/L (21-28) 21 mmol/L (21-28) Arterial Blood Base Excess -4 mmol/L (-3-3) -2 mmol/L (-3-3) FiO2 40 40 Laboratory Tests Test 09/21/18 10:18 09/21/18 10:20 09/21/18 11:00 09/21/18 11:15 White Blood Count 8.9 x10^3/uL (4.0-11.0) Red Blood Count 2.99 x10^6/uL (3.50-5.40) Hemoglobin 6.6 g/dL (12.0-15.5) Hematocrit 22.6 % (36.0-47.0) Mean Corpuscular Volume 76 fL (79-100) Mean Corpuscular Hemoglobin 22 pg (25-35) Mean Corpuscular Hemoglobin Concent 29 g/dL (31-37) Red Cell Distribution Width 23.7 % (11.5-14.5) Platelet Count 462 x10^3/uL (140-400) Neutrophils (%) (Auto) 30 % (31-73) Lymphocytes (%) (Auto) 52 % (24-48) Monocytes (%) (Auto) 10 % (0-9) Eosinophils (%) (Auto) 7 % (0-3) Basophils (%) (Auto) 2 % (0-3) Neutrophils # (Auto) 2.7 x10^3uL (1.8-7.7) Lymphocytes # (Auto) 4.6 x10^3/uL (1.0-4.8) Monocytes # (Auto) 0.8 x10^3/uL (0.0-1.1) Eosinophils # (Auto) 0.6 x10^3/uL (0.0-0.7) Basophils # (Auto) 0.2 x10^3/uL (0.0-0.2) Segmented Neutrophils % 21 % (35-66) Band Neutrophils % 4 % (0-9) Lymphocytes % 49 % (24-48) Atypical Lymphocytes % (Manual) 4 % (0-0) Monocytes % 9 % (0-10) Eosinophils % 11 % (0-5) Basophils % 1 % (0-3) Metamyelocytes % 1 % (0-0) Platelet Estimate Increased (ADEQUATE) Hypochromasia Mod Poikilocytosis Slight Anisocytosis Mod Microcytosis Mod Target Cells Few Schistocytes Few Prothrombin Time 14.0 SEC (11.7-14.0) Prothromb Time International Ratio 1.1 (0.8-1.1) Sodium Level 143 mmol/L (136-145) Potassium Level 5.1 mmol/L (3.5-5.1) Chloride Level 107 mmol/L (98-107) Carbon Dioxide Level 26 mmol/L (21-32) Anion Gap 10 (6-14) Blood Urea Nitrogen 20 mg/dL (7-20) Creatinine 1.0 mg/dL (0.6-1.0) Estimated GFR (Cockcroft-Gault) 53.3 BUN/Creatinine Ratio 20 (6-20) Glucose Level 316 mg/dL (70-99) Calcium Level 8.6 mg/dL (8.5-10.1) Magnesium Level 2.3 mg/dL (1.8-2.4) Total Bilirubin 0.2 mg/dL (0.2-1.0) Aspartate Amino Transf (AST/SGOT) 34 U/L (15-37) Alanine Aminotransferase (ALT/SGPT) 27 U/L (14-59) Alkaline Phosphatase 84 U/L (46-116) Troponin I Quantitative < 0.017 ng/mL (0.000-0.055) Total Protein 6.0 g/dL (6.4-8.2) Albumin 3.3 g/dL (3.4-5.0) Albumin/Globulin Ratio 1.2 (1.0-1.7) O2 Saturation 100 % (92-99) Arterial Blood pH 7.00 (7.35-7.45) Arterial Blood pCO2 at Patient Temp 92 mmHg (35-46) Arterial Blood pO2 at Patient Temp 468 mmHg (65-108) Arterial Blood HCO3 22 mmol/L (21-28) Arterial Blood Base Excess -9 mmol/L (-3-3) FiO2 100 Urine Opiates Screen Neg (NEG) Urine Methadone Screen Neg (NEG) Urine Barbiturates Neg (NEG) Urine Phencyclidine Screen Neg (NEG) Urine Amphetamine/Methamphetamine Neg (NEG) Urine Benzodiazepines Screen Pos (NEG) Urine Cocaine Screen Neg (NEG) Urine Cannabinoids Screen Neg (NEG) Urine Ethyl Alcohol Neg (NEG) Stool Occult Blood Positive (NEG) Test 09/21/18 11:22 09/21/18 13:10 O2 Saturation 82 % (92-99) 99 % (92-99) Arterial Blood pH 7.24 (7.35-7.45) 7.48 (7.35-7.45) Arterial Blood pCO2 at Patient Temp 57 mmHg (35-46) 30 mmHg (35-46) Arterial Blood pO2 at Patient Temp 60 mmHg (65-108) 168 mmHg (65-108) Arterial Blood HCO3 24 mmol/L (21-28) 21 mmol/L (21-28) Arterial Blood Base Excess -4 mmol/L (-3-3) -2 mmol/L (-3-3) FiO2 40 40 Medications Active Scripts Medications Dose Route/Sig Max Daily Dose Days Date Category Mucinex (Guaifenesin) 600 Mg Tablet.er 1,200 Mg PO BID 08/11/16 Rx Prednisone 20 Mg Tablet 40 Mg PO DAILY 08/11/16 Rx Levaquin (Levofloxacin) 250 Mg Tablet 250 Mg PO DAILY06 08/11/16 Rx Levothyroxine Sodium 50 Mcg Tablet 1 Tab PO DAILY 08/07/16 Reported Losartan Potassium 25 Mg Tablet 1 Tab PO DAILY 12/27/13 Reported Impression . ACUTE RESP FAILURE AECOPD SEE ORDERS THANKS KELLEY MEANS MD September 21, 2018 14:43
[2018-09-21] MEDS ORDERED: ALBUTEROL SULFATE 2.5 MG/3 ML NEBU. NEB PRN (14:45)
[2018-09-21] MEDS ORDERED: DOXYCYCLINE HYCLATE 100 MG in IV DEXTROSE 5% 100ML 100 ML IV SCH (15:00)
[2018-09-21] MEDS: IPRATRPIUM/ALBUTEROL 0.5/2.5MG 3 ML NEBU. NEB SCH ×2 (16:06→19:59)
--- NOTE | 2018-09-21 16:49 | NUR ---
Patient admitted to ICU from ED. Patient intubated on arrival to ED. Family unable to provide medication list at time of admission. This RN asked if family could find medications or list and bring them in. Family stated " they would look into it". 2 units PRBC given for hem of 6.6. will continue to monitor.
[2018-09-21 19:25] LABS: HEMATOCRIT 27.1 % (36.0-47.0); HEMOGLOBIN 8.6 g/dL (12.0-15.5); RED BLOOD COUNT 3.58 x10^6/uL (3.50-5.40); RED CELL DISTRIBUTION WIDTH 23.4 % (11.5-14.5); WHITE BLOOD COUNT 10.1 x10^3/uL (4.0-11.0)
--- NOTE | 2018-09-21 19:33 | HP ---
ADMIT DATE: 09/21/2018 CHIEF COMPLAINT: Shortness of breath. HISTORY OF PRESENT ILLNESS: The patient is a pleasant 78-year-old female who appears somewhat younger than her stated age. She presented with respiratory failure. She has known COPD, although her states she has never smoked. He states that she got exposed to a lot of chemicals when she was younger. Apparently, she used a lot of bleach. Nevertheless, she presented with respiratory failure. While in the ambulance, she received several breathing treatments. When she hit the ER, she was still hypoxic. We intubated her. She is now on the vent, sedated with propofol, but that seems to be dropping her pressure. We are going to stop that and start some Versed. The family is here as well. PAST MEDICAL HISTORY: COPD, multiple intubations, stomach surgery. ALLERGIES: PENICILLIN AND SULFA. FAMILY HISTORY: Coronary disease. SOCIAL HISTORY: She never smoked. She has been with the same gentleman for 40 some years. They are not officially , but they have been together for decades. She is retired. She was cleaning houses. MEDICATIONS: Reviewed, please refer to the MRAD. She is on 5 home meds including Levaquin, losartan, Mucinex, prednisone, and Synthroid. REVIEW OF SYSTEMS: Unable to obtain. PHYSICAL EXAMINATION: VITAL SIGNS: Temperature is afebrile, pulse 92, respirations 18, blood pressure 114/49, O2 sat 100% and she is on the vent. GENERAL: She is sedated, on the vent. HEART: Distant S1, S2. LUNGS: Diffuse wheezing. ABDOMEN: Soft. EXTREMITIES: Trace edema. SKIN: No rash. ENDOCRINE: No thyromegaly. LYMPHATICS: No cervical nodes. HEMATOPOIETIC: No bruising noted. PSYCHIATRIC: Unable to assess at this time, she is intubated. LABORATORY DATA: White count 8, hemoglobin 6.6, platelets 462. Electrolytes are normal. Glucose is 313. Troponin is 0. Fecal occult blood was positive. INR is 1.1. ASSESSMENT AND PLAN: Respiratory failure with an incidental finding of a possible gastrointestinal bleed. She is guaiac positive and her hemoglobin is low. We are going to admit the patient to the ICU on the vent. Consult pulmonary, consult GI, transfuse 2 packed units of packed red blood cells, frequent labs, aggressive vent weaning. Deep venous thrombosis prophylaxis. Full code. PROGNOSIS: Guarded. TOMASL Marga GARCIA DO DR: SHARAD/shayne JOB#: [id number] / [id number]
[2018-09-21 19:48] LABS: CALCIUM 8.6 mg/dL (8.5-10.1); CREATININE 0.8 mg/dL (0.6-1.0)
[2018-09-21] MEDS: DOXYCYCLINE HYCLATE 100 MG in IV DEXTROSE 5% 100ML 100 ML IV SCH (20:31)
[2018-09-21] MEDS ORDERED: ENOXAPARIN 40 MG/0.4 ML SYRINGE. SQ SCH (21:00)
[2018-09-21] MEDS ORDERED: FAMOTIDINE 20 MG/2 ML VIAL IVP SCH (21:00)
[2018-09-21] MEDS ORDERED: HEPARIN for SUB-Q USE 5,000 UNIT/ML VIAL. SQ SCH (22:00)
[2018-09-21] MEDS: methylPREDNISolone SOD SUCC PF 125 MG/2 ML VIAL. IV SCH (22:08)
[2018-09-22] VITALS (21 sets, daily range): BP systolic 97–148; BP diastolic 43–75
--- NOTE | 2018-09-22 02:22 | CONS ---
DATE OF CONSULTATION: 09/21/2018 ATTENDING PHYSICIAN: Dr. Varsha Henry. REASON FOR CONSULTATION: The patient seen in pulmonary consultation at the request of Dr. Henry for respiratory failure, vent management. HISTORY OF PRESENT ILLNESS: The patient is an 78-year-old female that has never smoked. She does have underlying obstructive lung disease that was possibly related to previous inhalation of a cleaning fluid sent secondhand smoke. She has been hospitalized at on multiple occasions. She has been intubated in the past approximately a year ago, she was positive for influenza. She presented with increasing shortness of breath. EMS was summoned to her house, they found the patient seated on the bed, taken her straight DuoNeb. During transport, she deteriorated after initially being responsive and conversive. The patient became unresponsive. She was in for respiratory arrest. She was bagged. She was ultimately intubated. Chest x-ray was obtained. I reviewed the x-ray, there is increased lung markings, otherwise no consolidation. Family members at the bedside including her daughter. There has been no report of recent fever or chills, nausea or vomiting. The patient does have some pets at home. She has been working in the yard and it is possible that she had an acute flare up secondary to allergies and high pollen count. PAST MEDICAL HISTORY: COPD, previous respiratory failure requiring intubation. PAST SURGICAL HISTORY: She has had abdominal surgery in the past. REVIEW OF SYSTEMS: Unobtainable. HOME MEDICATIONS: List was reviewed. CURRENT MEDICATION: List was likewise reviewed. PHYSICAL EXAMINATION: GENERAL: The patient was sedated in the intensive care unit on mechanical ventilation, current assist control rate of 24, tidal volume 500. HEENT: Eyes, the sclerae were nonicteric. NECK: Jugular venous distention was not elevated. No lymphadenopathy. CHEST: Full expansion. LUNGS: Adequate airway flow with no wheezes. CARDIOVASCULAR: Regular rate and rhythm with S1, S2, no S3. ABDOMEN: Soft, nontender, nondistended. EXTREMITIES: No clubbing, cyanosis or edema. NEUROLOGIC: The patient was sedated. LABORATORY DATA: Chest x-ray reviewed as indicated above. Arterial blood gas reviewed. White count was noted. Hemoglobin 6.6. INR was 1.1. Electrolytes were noted. IMPRESSION: 1. Acute hypercapnic hypoxemic respiratory failure. 2. Acute exacerbation of chronic obstructive pulmonary disease. 3. Acute blood loss anemia. PLAN: 1. We will repeat arterial blood gas, pH of 7.48, PaCO2 of 30, pO2 of 168. We will proceed with decreasing tidal volume. 2. Steroids. 3. Nebulized treatments. 4. Doxycycline for atypical infection. 5. DVT and GI prophylaxis. 6. If the patient was not extubated within next 24 hours will initiate tube feeding. I do appreciate the privilege in sharing in the patient's care. KELLEY MEANS MD DR: FAVIAN/shayne JOB#: [id number] / [id number]
[2018-09-22] MEDS: methylPREDNISolone SOD SUCC PF 125 MG/2 ML VIAL. IV SCH ×3 (05:52→22:29)
[2018-09-22] MEDS: DOXYCYCLINE HYCLATE 100 MG in IV DEXTROSE 5% 100ML 100 ML IV SCH ×2 (08:19→20:56)
[2018-09-22 08:22] LABS: BASO % 0 % (0-3); EOS % 0 % (0-3); HEMATOCRIT 25.7 % (36.0-47.0); HEMOGLOBIN 8.3 g/dL (12.0-15.5); LYMPH # 0.3 x10^3/uL (1.0-4.8); LYMPH % 4 % (24-48); MEAN CORPUSCULAR HEMOGLOBIN 25 pg (25-35); MEAN CORPUSCULAR HGB CONC 32 g/dL (31-37); MEAN CORPUSCULAR VOLUME 76 fL (79-100); MONO # 0.3 x10^3/uL (0.0-1.1); MONO % 4 % (0-9); NEUT # 6.8 x10^3uL (1.8-7.7); NEUT % 92 % (31-73); PLATELET COUNT 313 x10^3/uL (140-400); RED BLOOD COUNT 3.38 x10^6/uL (3.50-5.40); RED CELL DISTRIBUTION WIDTH 23.3 % (11.5-14.5); WHITE BLOOD COUNT 7.4 x10^3/uL (4.0-11.0)
[2018-09-22 08:29] LABS: CALCIUM 8.9 mg/dL (8.5-10.1); CREATININE 0.9 mg/dL (0.6-1.0); GFR 60.2; POTASSIUM 4.4 mmol/L (3.5-5.1)
[2018-09-22] MEDS: IPRATRPIUM/ALBUTEROL 0.5/2.5MG 3 ML NEBU. NEB SCH ×4 (08:40→20:47)
[2018-09-22 08:44] LABS: BASE EXCESS ABG -5 mmol/L (-3-3); HCO3 ABG 21 mmol/L (21-28); PCO2 ABG 38 mmHg (35-46); PO2 ABG 148 mmHg (65-108); SAT O2 ABG 98 % (92-99)
[2018-09-22 09:18] LABS: FIO2 ABG 40%
--- NOTE | 2018-09-22 09:36 | PDOC2 ---
GI CONSULT Reason For Consult: Anemia, guaiac + HPI: HPI: 78 y/o female currently intubated and sedated in ICU. Brought to ER via EMS from home, resp arrest en route. GI asked to see re: anemia - Hgb 6.6 (baseline seems around 8), now 8.6 s/p transfusions. MCV 76, RDW 23.7. Normal INR, plt, BUN, Cr. +fecal occult. Reviewed w/ RN - family said she takes no meds, also no reports of bleeding. EGD and colonoscopy (Dr. Jemal Alvarez) in 2015: hiatal hernia w/ Kyle lesions, gastric ulcers (chronic gastritic, neg for H. pylori), diverticulosis. PMH: PMH: per chart/RN - HTN, asthma, COPD (O2 at home), depression, headaches, RLS, hypothyroidism ankle surgery, hysterectomy, "stomach surgery" FH: Family History: Other (unable to obtain) ROS: Unable to obtain. Vitals: Vitals: Vital Signs Date Time Temp Pulse Resp B/P (MAP) Pulse Ox O2 Delivery O2 Flow Rate FiO2 09/22/18 08:56 99 Ventilator 09/22/18 08:53 15.0 09/22/18 06:00 85 16 104/47 (66) 09/22/18 04:00 98.2 98.2 Labs: Labs: Laboratory Tests Test 09/21/18 10:18 09/21/18 10:20 09/21/18 11:00 09/21/18 11:15 White Blood Count 8.9 x10^3/uL (4.0-11.0) Red Blood Count 2.99 x10^6/uL (3.50-5.40) Hemoglobin 6.6 g/dL (12.0-15.5) Hematocrit 22.6 % (36.0-47.0) Mean Corpuscular Volume 76 fL (79-100) Mean Corpuscular Hemoglobin 22 pg (25-35) Mean Corpuscular Hemoglobin Concent 29 g/dL (31-37) Red Cell Distribution Width 23.7 % (11.5-14.5) Platelet Count 462 x10^3/uL (140-400) Neutrophils (%) (Auto) 30 % (31-73) Lymphocytes (%) (Auto) 52 % (24-48) Monocytes (%) (Auto) 10 % (0-9) Eosinophils (%) (Auto) 7 % (0-3) Basophils (%) (Auto) 2 % (0-3) Neutrophils # (Auto) 2.7 x10^3uL (1.8-7.7) Lymphocytes # (Auto) 4.6 x10^3/uL (1.0-4.8) Monocytes # (Auto) 0.8 x10^3/uL (0.0-1.1) Eosinophils # (Auto) 0.6 x10^3/uL (0.0-0.7) Basophils # (Auto) 0.2 x10^3/uL (0.0-0.2) Segmented Neutrophils % 21 % (35-66) Band Neutrophils % 4 % (0-9) Lymphocytes % 49 % (24-48) Atypical Lymphocytes % (Manual) 4 % (0-0) Monocytes % 9 % (0-10) Eosinophils % 11 % (0-5) Basophils % 1 % (0-3) Metamyelocytes % 1 % (0-0) Platelet Estimate Increased (ADEQUATE) Hypochromasia Mod Poikilocytosis Slight Anisocytosis Mod Microcytosis Mod Target Cells Few Schistocytes Few Prothrombin Time 14.0 SEC (11.7-14.0) Prothromb Time International Ratio 1.1 (0.8-1.1) Sodium Level 143 mmol/L (136-145) Potassium Level 5.1 mmol/L (3.5-5.1) Chloride Level 107 mmol/L (98-107) Carbon Dioxide Level 26 mmol/L (21-32) Anion Gap 10 (6-14) Blood Urea Nitrogen 20 mg/dL (7-20) Creatinine 1.0 mg/dL (0.6-1.0) Estimated GFR (Cockcroft-Gault) 53.3 BUN/Creatinine Ratio 20 (6-20) Glucose Level 316 mg/dL (70-99) Calcium Level 8.6 mg/dL (8.5-10.1) Magnesium Level 2.3 mg/dL (1.8-2.4) Total Bilirubin 0.2 mg/dL (0.2-1.0) Aspartate Amino Transf (AST/SGOT) 34 U/L (15-37) Alanine Aminotransferase (ALT/SGPT) 27 U/L (14-59) Alkaline Phosphatase 84 U/L (46-116) Troponin I Quantitative < 0.017 ng/mL (0.000-0.055) Total Protein 6.0 g/dL (6.4-8.2) Albumin 3.3 g/dL (3.4-5.0) Albumin/Globulin Ratio 1.2 (1.0-1.7) O2 Saturation 100 % (92-99) Arterial Blood pH 7.00 (7.35-7.45) Arterial Blood pCO2 at Patient Temp 92 mmHg (35-46) Arterial Blood pO2 at Patient Temp 468 mmHg (65-108) Arterial Blood HCO3 22 mmol/L (21-28) Arterial Blood Base Excess -9 mmol/L (-3-3) FiO2 100 Urine Opiates Screen Neg (NEG) Urine Methadone Screen Neg (NEG) Urine Barbiturates Neg (NEG) Urine Phencyclidine Screen Neg (NEG) Urine Amphetamine/Methamphetamine Neg (NEG) Urine Benzodiazepines Screen Pos (NEG) Urine Cocaine Screen Neg (NEG) Urine Cannabinoids Screen Neg (NEG) Urine Ethyl Alcohol Neg (NEG) Stool Occult Blood Positive (NEG) Test 09/21/18 11:22 09/21/18 13:10 09/21/18 19:20 09/22/18 08:05 O2 Saturation 82 % (92-99) 99 % (92-99) Arterial Blood pH 7.24 (7.35-7.45) 7.48 (7.35-7.45) Arterial Blood pCO2 at Patient Temp 57 mmHg (35-46) 30 mmHg (35-46) Arterial Blood pO2 at Patient Temp 60 mmHg (65-108) 168 mmHg (65-108) Arterial Blood HCO3 24 mmol/L (21-28) 21 mmol/L (21-28) Arterial Blood Base Excess -4 mmol/L (-3-3) -2 mmol/L (-3-3) FiO2 40 40 White Blood Count 10.1 x10^3/uL (4.0-11.0) 7.4 x10^3/uL (4.0-11.0) Red Blood Count 3.58 x10^6/uL (3.50-5.40) 3.38 x10^6/uL (3.50-5.40) Hemoglobin 8.6 g/dL (12.0-15.5) 8.3 g/dL (12.0-15.5) Hematocrit 27.1 % (36.0-47.0) 25.7 % (36.0-47.0) Mean Corpuscular Volume 76 fL (79-100) 76 fL (79-100) Mean Corpuscular Hemoglobin 24 pg (25-35) 25 pg (25-35) Mean Corpuscular Hemoglobin Concent 32 g/dL (31-37) 32 g/dL (31-37) Red Cell Distribution Width 23.4 % (11.5-14.5) 23.3 % (11.5-14.5) Platelet Count 348 x10^3/uL (140-400) 313 x10^3/uL (140-400) Sodium Level 142 mmol/L (136-145) 142 mmol/L (136-145) Potassium Level 4.0 mmol/L (3.5-5.1) 4.4 mmol/L (3.5-5.1) Chloride Level 110 mmol/L (98-107) 109 mmol/L (98-107) Carbon Dioxide Level 20 mmol/L (21-32) 23 mmol/L (21-32) Anion Gap 12 (6-14) 10 (6-14) Blood Urea Nitrogen 17 mg/dL (7-20) 21 mg/dL (7-20) Creatinine 0.8 mg/dL (0.6-1.0) 0.9 mg/dL (0.6-1.0) Estimated GFR (Cockcroft-Gault) 69.0 60.2 Glucose Level 161 mg/dL (70-99) 164 mg/dL (70-99) Calcium Level 8.6 mg/dL (8.5-10.1) 8.9 mg/dL (8.5-10.1) Neutrophils (%) (Auto) 92 % (31-73) Lymphocytes (%) (Auto) 4 % (24-48) Monocytes (%) (Auto) 4 % (0-9) Eosinophils (%) (Auto) 0 % (0-3) Basophils (%) (Auto) 0 % (0-3) Neutrophils # (Auto) 6.8 x10^3uL (1.8-7.7) Lymphocytes # (Auto) 0.3 x10^3/uL (1.0-4.8) Monocytes # (Auto) 0.3 x10^3/uL (0.0-1.1) Eosinophils # (Auto) 0.0 x10^3/uL (0.0-0.7) Basophils # (Auto) 0.0 x10^3/uL (0.0-0.2) Test 09/22/18 08:40 O2 Saturation 98 % (92-99) Arterial Blood pH 7.35 (7.35-7.45) Arterial Blood pCO2 at Patient Temp 38 mmHg (35-46) Arterial Blood pO2 at Patient Temp 148 mmHg (65-108) Arterial Blood HCO3 21 mmol/L (21-28) Arterial Blood Base Excess -5 mmol/L (-3-3) FiO2 40% Allergies: Coded Allergies: Penicillins (Verified Allergy, Intermediate, 06/22/17) Sulfa (Sulfonamide Antibiotics) (Verified Allergy, Intermediate, 06/22/17) Medications: Current Medications Medications (Trade) Dose Ordered Sig/Jennifer Route PRN Reason Start Time Stop Time Status Last Admin Dose Admin Sodium Chloride 1,000 ml @ 1,000 mls/hr Q1H IV 09/21/18 10:48 09/21/18 11:47 DC 09/21/18 11:11 Methylprednisolone Sodium Succinate (SOLU-Medrol 125MG VIAL) 125 mg 1X ONCE IV 09/21/18 11:00 09/21/18 11:01 DC 09/21/18 11:14 Albuterol/ Ipratropium (Duoneb) 3 ml 1X ONCE NEB 09/21/18 11:00 09/21/18 11:01 DC 09/21/18 11:00 Propofol (Diprivan) 200 mg 1X ONCE IV 09/21/18 11:00 09/21/18 11:01 DC 09/21/18 10:45 Etomidate (Amidate) 20 mg 1X ONCE IV 09/21/18 12:00 09/21/18 12:04 DC 09/21/18 10:18 Midazolam HCl (Versed) 5 mg 1X ONCE IV 09/21/18 12:00 09/21/18 12:04 DC 09/21/18 10:30 Midazolam HCl (Versed) 2 mg 1X ONCE IV 09/21/18 12:00 09/21/18 12:04 DC 09/21/18 11:47 Midazolam HCl 100 ml @ 0 mls/hr 1X ONCE IV 09/21/18 12:00 09/21/18 12:04 DC 09/21/18 12:19 Midazolam HCl (Versed) 2 mg 1X ONCE IV 09/21/18 13:00 09/21/18 13:01 DC 09/21/18 12:47 Fentanyl Citrate 30 ml @ 0 mls/hr CONT PRN IV SEE PROTOCOL 09/21/18 13:00 09/22/18 08:18 Midazolam HCl 100 ml @ 0 mls/hr CONT PRN IV SEE PROTOCOL 09/21/18 13:00 09/21/18 22:55 Albuterol/ Ipratropium (Duoneb) 3 ml RTQID NEB 09/21/18 16:00 09/22/18 08:40 Methylprednisolone Sodium Succinate (SOLU-Medrol 125MG VIAL) 80 mg Q8HRS IV 09/21/18 22:00 09/22/18 05:52 Doxycycline Hyclate 100 mg/ Dextrose 100 ml @ 50 mls/hr Q12HR IV 09/21/18 19:00 09/22/18 08:19 Famotidine (Pepcid Vial) 20 mg QHS IVP 09/21/18 21:00 09/21/18 22:08 Imaging: Imaging: CXR IMPRESSION: 1. Malposition of ET tube with its tip lying at the origin of the right main bronchus. 2. The distal aspect of the NG tube is coiled in a moderate sized hiatal hernia. 3. No acute infiltrates. CXR IMPRESSION: 1. The ET tube is now in satisfactory position. 2. No other significant change since earlier in the day. PE: GEN: intubated HEENT: Atraumatic LUNGS: vent HEART: RRR ABD: NABS, S/ND/NT EXTREMITY/SKIN: LE SCDs NEURO/PSYCH: sedated A/P: A/P: Resp failure Microcytic anemia - chronic, Hgb lower than baseline Hiatal hernia w/ h/o Kyle lesions, h/o PUD (no H. pylori) - EGD in 2015 CRC screen - UTD Diverticulosis -- Monitor labs and for bleeding. Agree w/ IV acid-core shaper top - increase to BID. Consider iron. Check anemia parameters (though now s/p transfusion). ROBBY GAY September 22, 2018 09:36
--- NOTE | 2018-09-22 10:57 | PDOC ---
PULMONARY PROGRESS NOTES Subjective AWAKE , ON CPAP TRIAL Vitals Vital Signs Date Time Temp Pulse Resp B/P (MAP) Pulse Ox O2 Delivery O2 Flow Rate FiO2 09/22/18 10:00 86 16 107/52 (70) 99 Ventilator 09/22/18 08:53 15.0 09/22/18 07:00 98.6 98.6 General: Alert, No acute distress HEENT: Other Lungs: Clear Cardiovascular: S1, S2 Abdomen: Soft, Non-tender Neuro Exam: Alert Extremities: No Edema Skin: Warm Labs Laboratory Tests Test 09/21/18 10:18 09/21/18 10:20 09/21/18 11:00 09/21/18 11:15 White Blood Count 8.9 x10^3/uL (4.0-11.0) Red Blood Count 2.99 x10^6/uL (3.50-5.40) Hemoglobin 6.6 g/dL (12.0-15.5) Hematocrit 22.6 % (36.0-47.0) Mean Corpuscular Volume 76 fL (79-100) Mean Corpuscular Hemoglobin 22 pg (25-35) Mean Corpuscular Hemoglobin Concent 29 g/dL (31-37) Red Cell Distribution Width 23.7 % (11.5-14.5) Platelet Count 462 x10^3/uL (140-400) Neutrophils (%) (Auto) 30 % (31-73) Lymphocytes (%) (Auto) 52 % (24-48) Monocytes (%) (Auto) 10 % (0-9) Eosinophils (%) (Auto) 7 % (0-3) Basophils (%) (Auto) 2 % (0-3) Neutrophils # (Auto) 2.7 x10^3uL (1.8-7.7) Lymphocytes # (Auto) 4.6 x10^3/uL (1.0-4.8) Monocytes # (Auto) 0.8 x10^3/uL (0.0-1.1) Eosinophils # (Auto) 0.6 x10^3/uL (0.0-0.7) Basophils # (Auto) 0.2 x10^3/uL (0.0-0.2) Segmented Neutrophils % 21 % (35-66) Band Neutrophils % 4 % (0-9) Lymphocytes % 49 % (24-48) Atypical Lymphocytes % (Manual) 4 % (0-0) Monocytes % 9 % (0-10) Eosinophils % 11 % (0-5) Basophils % 1 % (0-3) Metamyelocytes % 1 % (0-0) Platelet Estimate Increased (ADEQUATE) Hypochromasia Mod Poikilocytosis Slight Anisocytosis Mod Microcytosis Mod Target Cells Few Schistocytes Few Prothrombin Time 14.0 SEC (11.7-14.0) Prothromb Time International Ratio 1.1 (0.8-1.1) Sodium Level 143 mmol/L (136-145) Potassium Level 5.1 mmol/L (3.5-5.1) Chloride Level 107 mmol/L (98-107) Carbon Dioxide Level 26 mmol/L (21-32) Anion Gap 10 (6-14) Blood Urea Nitrogen 20 mg/dL (7-20) Creatinine 1.0 mg/dL (0.6-1.0) Estimated GFR (Cockcroft-Gault) 53.3 BUN/Creatinine Ratio 20 (6-20) Glucose Level 316 mg/dL (70-99) Calcium Level 8.6 mg/dL (8.5-10.1) Magnesium Level 2.3 mg/dL (1.8-2.4) Total Bilirubin 0.2 mg/dL (0.2-1.0) Aspartate Amino Transf (AST/SGOT) 34 U/L (15-37) Alanine Aminotransferase (ALT/SGPT) 27 U/L (14-59) Alkaline Phosphatase 84 U/L (46-116) Troponin I Quantitative < 0.017 ng/mL (0.000-0.055) Total Protein 6.0 g/dL (6.4-8.2) Albumin 3.3 g/dL (3.4-5.0) Albumin/Globulin Ratio 1.2 (1.0-1.7) O2 Saturation 100 % (92-99) Arterial Blood pH 7.00 (7.35-7.45) Arterial Blood pCO2 at Patient Temp 92 mmHg (35-46) Arterial Blood pO2 at Patient Temp 468 mmHg (65-108) Arterial Blood HCO3 22 mmol/L (21-28) Arterial Blood Base Excess -9 mmol/L (-3-3) FiO2 100 Urine Opiates Screen Neg (NEG) Urine Methadone Screen Neg (NEG) Urine Barbiturates Neg (NEG) Urine Phencyclidine Screen Neg (NEG) Urine Amphetamine/Methamphetamine Neg (NEG) Urine Benzodiazepines Screen Pos (NEG) Urine Cocaine Screen Neg (NEG) Urine Cannabinoids Screen Neg (NEG) Urine Ethyl Alcohol Neg (NEG) Stool Occult Blood Positive (NEG) Test 09/21/18 11:22 09/21/18 13:10 09/21/18 19:20 09/22/18 08:05 O2 Saturation 82 % (92-99) 99 % (92-99) Arterial Blood pH 7.24 (7.35-7.45) 7.48 (7.35-7.45) Arterial Blood pCO2 at Patient Temp 57 mmHg (35-46) 30 mmHg (35-46) Arterial Blood pO2 at Patient Temp 60 mmHg (65-108) 168 mmHg (65-108) Arterial Blood HCO3 24 mmol/L (21-28) 21 mmol/L (21-28) Arterial Blood Base Excess -4 mmol/L (-3-3) -2 mmol/L (-3-3) FiO2 40 40 White Blood Count 10.1 x10^3/uL (4.0-11.0) 7.4 x10^3/uL (4.0-11.0) Red Blood Count 3.58 x10^6/uL (3.50-5.40) 3.38 x10^6/uL (3.50-5.40) Hemoglobin 8.6 g/dL (12.0-15.5) 8.3 g/dL (12.0-15.5) Hematocrit 27.1 % (36.0-47.0) 25.7 % (36.0-47.0) Mean Corpuscular Volume 76 fL (79-100) 76 fL (79-100) Mean Corpuscular Hemoglobin 24 pg (25-35) 25 pg (25-35) Mean Corpuscular Hemoglobin Concent 32 g/dL (31-37) 32 g/dL (31-37) Red Cell Distribution Width 23.4 % (11.5-14.5) 23.3 % (11.5-14.5) Platelet Count 348 x10^3/uL (140-400) 313 x10^3/uL (140-400) Sodium Level 142 mmol/L (136-145) 142 mmol/L (136-145) Potassium Level 4.0 mmol/L (3.5-5.1) 4.4 mmol/L (3.5-5.1) Chloride Level 110 mmol/L (98-107) 109 mmol/L (98-107) Carbon Dioxide Level 20 mmol/L (21-32) 23 mmol/L (21-32) Anion Gap 12 (6-14) 10 (6-14) Blood Urea Nitrogen 17 mg/dL (7-20) 21 mg/dL (7-20) Creatinine 0.8 mg/dL (0.6-1.0) 0.9 mg/dL (0.6-1.0) Estimated GFR (Cockcroft-Gault) 69.0 60.2 Glucose Level 161 mg/dL (70-99) 164 mg/dL (70-99) Calcium Level 8.6 mg/dL (8.5-10.1) 8.9 mg/dL (8.5-10.1) Neutrophils (%) (Auto) 92 % (31-73) Lymphocytes (%) (Auto) 4 % (24-48) Monocytes (%) (Auto) 4 % (0-9) Eosinophils (%) (Auto) 0 % (0-3) Basophils (%) (Auto) 0 % (0-3) Neutrophils # (Auto) 6.8 x10^3uL (1.8-7.7) Lymphocytes # (Auto) 0.3 x10^3/uL (1.0-4.8) Monocytes # (Auto) 0.3 x10^3/uL (0.0-1.1) Eosinophils # (Auto) 0.0 x10^3/uL (0.0-0.7) Basophils # (Auto) 0.0 x10^3/uL (0.0-0.2) Iron Level 9 ug/dL (50-170) Total Iron Binding Capacity 288 ug/dL (250-450) Iron Saturation 3 % (15-34) Test 09/22/18 08:40 O2 Saturation 98 % (92-99) Arterial Blood pH 7.35 (7.35-7.45) Arterial Blood pCO2 at Patient Temp 38 mmHg (35-46) Arterial Blood pO2 at Patient Temp 148 mmHg (65-108) Arterial Blood HCO3 21 mmol/L (21-28) Arterial Blood Base Excess -5 mmol/L (-3-3) FiO2 40% Laboratory Tests Test 09/21/18 11:00 09/21/18 11:15 09/21/18 11:22 09/21/18 13:10 Urine Opiates Screen Neg (NEG) Urine Methadone Screen Neg (NEG) Urine Barbiturates Neg (NEG) Urine Phencyclidine Screen Neg (NEG) Urine Amphetamine/Methamphetamine Neg (NEG) Urine Benzodiazepines Screen Pos (NEG) Urine Cocaine Screen Neg (NEG) Urine Cannabinoids Screen Neg (NEG) Urine Ethyl Alcohol Neg (NEG) Stool Occult Blood Positive (NEG) O2 Saturation 82 % (92-99) 99 % (92-99) Arterial Blood pH 7.24 (7.35-7.45) 7.48 (7.35-7.45) Arterial Blood pCO2 at Patient Temp 57 mmHg (35-46) 30 mmHg (35-46) Arterial Blood pO2 at Patient Temp 60 mmHg (65-108) 168 mmHg (65-108) Arterial Blood HCO3 24 mmol/L (21-28) 21 mmol/L (21-28) Arterial Blood Base Excess -4 mmol/L (-3-3) -2 mmol/L (-3-3) FiO2 40 40 Test 09/21/18 19:20 09/22/18 08:05 09/22/18 08:40 White Blood Count 10.1 x10^3/uL (4.0-11.0) 7.4 x10^3/uL (4.0-11.0) Red Blood Count 3.58 x10^6/uL (3.50-5.40) 3.38 x10^6/uL (3.50-5.40) Hemoglobin 8.6 g/dL (12.0-15.5) 8.3 g/dL (12.0-15.5) Hematocrit 27.1 % (36.0-47.0) 25.7 % (36.0-47.0) Mean Corpuscular Volume 76 fL (79-100) 76 fL (79-100) Mean Corpuscular Hemoglobin 24 pg (25-35) 25 pg (25-35) Mean Corpuscular Hemoglobin Concent 32 g/dL (31-37) 32 g/dL (31-37) Red Cell Distribution Width 23.4 % (11.5-14.5) 23.3 % (11.5-14.5) Platelet Count 348 x10^3/uL (140-400) 313 x10^3/uL (140-400) Sodium Level 142 mmol/L (136-145) 142 mmol/L (136-145) Potassium Level 4.0 mmol/L (3.5-5.1) 4.4 mmol/L (3.5-5.1) Chloride Level 110 mmol/L (98-107) 109 mmol/L (98-107) Carbon Dioxide Level 20 mmol/L (21-32) 23 mmol/L (21-32) Anion Gap 12 (6-14) 10 (6-14) Blood Urea Nitrogen 17 mg/dL (7-20) 21 mg/dL (7-20) Creatinine 0.8 mg/dL (0.6-1.0) 0.9 mg/dL (0.6-1.0) Estimated GFR (Cockcroft-Gault) 69.0 60.2 Glucose Level 161 mg/dL (70-99) 164 mg/dL (70-99) Calcium Level 8.6 mg/dL (8.5-10.1) 8.9 mg/dL (8.5-10.1) Neutrophils (%) (Auto) 92 % (31-73) Lymphocytes (%) (Auto) 4 % (24-48) Monocytes (%) (Auto) 4 % (0-9) Eosinophils (%) (Auto) 0 % (0-3) Basophils (%) (Auto) 0 % (0-3) Neutrophils # (Auto) 6.8 x10^3uL (1.8-7.7) Lymphocytes # (Auto) 0.3 x10^3/uL (1.0-4.8) Monocytes # (Auto) 0.3 x10^3/uL (0.0-1.1) Eosinophils # (Auto) 0.0 x10^3/uL (0.0-0.7) Basophils # (Auto) 0.0 x10^3/uL (0.0-0.2) Iron Level 9 ug/dL (50-170) Total Iron Binding Capacity 288 ug/dL (250-450) Iron Saturation 3 % (15-34) O2 Saturation 98 % (92-99) Arterial Blood pH 7.35 (7.35-7.45) Arterial Blood pCO2 at Patient Temp 38 mmHg (35-46) Arterial Blood pO2 at Patient Temp 148 mmHg (65-108) Arterial Blood HCO3 21 mmol/L (21-28) Arterial Blood Base Excess -5 mmol/L (-3-3) FiO2 40% Medications Active Scripts Medications Dose Route/Sig Max Daily Dose Days Date Category Mucinex (Guaifenesin) 600 Mg Tablet.er 1,200 Mg PO BID 08/11/16 Rx Prednisone 20 Mg Tablet 40 Mg PO DAILY 08/11/16 Rx Levaquin (Levofloxacin) 250 Mg Tablet 250 Mg PO DAILY06 08/11/16 Rx Levothyroxine Sodium 50 Mcg Tablet 1 Tab PO DAILY 08/07/16 Reported Losartan Potassium 25 Mg Tablet 1 Tab PO DAILY 12/27/13 Reported Impression . 1. Acute hypercapnic hypoxemic respiratory failure. 2. Acute exacerbation of chronic obstructive pulmonary disease. 3. Acute blood loss anemia. Plan . 1. Awake, on CPAP trial/ check ABG, and likely extubation today. 2. Steroids. 3. Nebulized treatments. 4. Doxycycline for atypical infection. 5. DVT and GI prophylaxis. 6. d/w son/ RN I do appreciate the privilege in sharing in the patient's care. NASREEN ADAMS MD September 22, 2018 10:57
[2018-09-22 11:51] LABS: BASE EXCESS ABG -5 mmol/L (-3-3); HCO3 ABG 20 mmol/L (21-28); PCO2 ABG 35 mmHg (35-46); PO2 ABG 147 mmHg (65-108); SAT O2 ABG 98 % (92-99)
--- NOTE | 2018-09-22 12:36 | NUR ---
Patient wean trial began at [address] Zaragoza. Blood gas repeated. Patient did breathing treatment and then extubated by RT.
[2018-09-22 13:02] LABS: FIO2 ABG 40%
--- NOTE | 2018-09-22 14:11 | PDOC ---
PROGRESS NOTES Chief Complaint Chief Complaint Acute hypercapnic hypoxemic respiratory failure - weaning trial per pulm Acute exacerbation of chronic obstructive pulmonary disease - steroids, nebs Acute blood loss anemia - transfused 2u PRBC, GI consulted for fecal occult positive. B12 today, iron as well History of Present Illness History of Present Illness 78-year-old female who appears somewhat younger than her stated age. She presented with respiratory failure. She has known COPD, although her states she has never smoked. He states that she got exposed to a lot of chemicals when she was younger. Enroute to ED she received several breathing treatments. When she was received at the ER, she was still hypoxic and was tiring out, had ABG with pH 7 and PCO2 of 92, was subsequently intubated. Noted with anemia, Hb 6.6 and occult blood positive. Pulm and GI consulted, admitted to ICU initially. Seen sedated on vent this morning on AC with PEEP of 7 and FiO2 of 40%. Hb up to 8.3 s/p 2u PRBC Vitals Vitals Vital Signs Date Time Temp Pulse Resp B/P (MAP) Pulse Ox O2 Delivery O2 Flow Rate FiO2 09/22/18 12:00 105 16 123/56 (78) 97 Room Air 2.0 09/22/18 07:00 98.6 98.6 Physical Exam General: No acute distress Heart: Regular rate Lungs: Clear Abdomen: Normal bowel sounds, Soft Extremities: No clubbing, No cyanosis Skin: No rashes, No breakdown Labs LABS Laboratory Tests Test 09/21/18 19:20 09/21/18 23:00 09/22/18 08:05 09/22/18 08:40 White Blood Count 10.1 x10^3/uL (4.0-11.0) 7.4 x10^3/uL (4.0-11.0) Red Blood Count 3.58 x10^6/uL (3.50-5.40) 3.38 x10^6/uL (3.50-5.40) Hemoglobin 8.6 g/dL (12.0-15.5) 8.3 g/dL (12.0-15.5) Hematocrit 27.1 % (36.0-47.0) 25.7 % (36.0-47.0) Mean Corpuscular Volume 76 fL (79-100) 76 fL (79-100) Mean Corpuscular Hemoglobin 24 pg (25-35) 25 pg (25-35) Mean Corpuscular Hemoglobin Concent 32 g/dL (31-37) 32 g/dL (31-37) Red Cell Distribution Width 23.4 % (11.5-14.5) 23.3 % (11.5-14.5) Platelet Count 348 x10^3/uL (140-400) 313 x10^3/uL (140-400) Sodium Level 142 mmol/L (136-145) 142 mmol/L (136-145) Potassium Level 4.0 mmol/L (3.5-5.1) 4.4 mmol/L (3.5-5.1) Chloride Level 110 mmol/L (98-107) 109 mmol/L (98-107) Carbon Dioxide Level 20 mmol/L (21-32) 23 mmol/L (21-32) Anion Gap 12 (6-14) 10 (6-14) Blood Urea Nitrogen 17 mg/dL (7-20) 21 mg/dL (7-20) Creatinine 0.8 mg/dL (0.6-1.0) 0.9 mg/dL (0.6-1.0) Estimated GFR (Cockcroft-Gault) 69.0 60.2 Glucose Level 161 mg/dL (70-99) 164 mg/dL (70-99) Calcium Level 8.6 mg/dL (8.5-10.1) 8.9 mg/dL (8.5-10.1) Glucose (Fingerstick) 197 mg/dL (70-99) Neutrophils (%) (Auto) 92 % (31-73) Lymphocytes (%) (Auto) 4 % (24-48) Monocytes (%) (Auto) 4 % (0-9) Eosinophils (%) (Auto) 0 % (0-3) Basophils (%) (Auto) 0 % (0-3) Neutrophils # (Auto) 6.8 x10^3uL (1.8-7.7) Lymphocytes # (Auto) 0.3 x10^3/uL (1.0-4.8) Monocytes # (Auto) 0.3 x10^3/uL (0.0-1.1) Eosinophils # (Auto) 0.0 x10^3/uL (0.0-0.7) Basophils # (Auto) 0.0 x10^3/uL (0.0-0.2) Iron Level 9 ug/dL (50-170) Total Iron Binding Capacity 288 ug/dL (250-450) Iron Saturation 3 % (15-34) Vitamin B12 Level 251 pg/mL (247-911) O2 Saturation 98 % (92-99) Arterial Blood pH 7.35 (7.35-7.45) Arterial Blood pCO2 at Patient Temp 38 mmHg (35-46) Arterial Blood pO2 at Patient Temp 148 mmHg (65-108) Arterial Blood HCO3 21 mmol/L (21-28) Arterial Blood Base Excess -5 mmol/L (-3-3) FiO2 40% Test 09/22/18 11:45 O2 Saturation 98 % (92-99) Arterial Blood pH 7.38 (7.35-7.45) Arterial Blood pCO2 at Patient Temp 35 mmHg (35-46) Arterial Blood pO2 at Patient Temp 147 mmHg (65-108) Arterial Blood HCO3 20 mmol/L (21-28) Arterial Blood Base Excess -5 mmol/L (-3-3) FiO2 40% Assessment and Plan Assessmemt and Plan Problems Medical Problems: (1) Acute respiratory failure Status: Acute (2) COPD (chronic obstructive pulmonary disease) Status: Acute (3) Hypercarbia Status: Acute Comment Review of Relevant I have reviewed the following items arnulfo (where applicable) has been applied. Labs Laboratory Tests Test 09/21/18 10:18 09/21/18 10:20 09/21/18 11:00 09/21/18 11:15 White Blood Count 8.9 x10^3/uL (4.0-11.0) Red Blood Count 2.99 x10^6/uL (3.50-5.40) Hemoglobin 6.6 g/dL (12.0-15.5) Hematocrit 22.6 % (36.0-47.0) Mean Corpuscular Volume 76 fL (79-100) Mean Corpuscular Hemoglobin 22 pg (25-35) Mean Corpuscular Hemoglobin Concent 29 g/dL (31-37) Red Cell Distribution Width 23.7 % (11.5-14.5) Platelet Count 462 x10^3/uL (140-400) Neutrophils (%) (Auto) 30 % (31-73) Lymphocytes (%) (Auto) 52 % (24-48) Monocytes (%) (Auto) 10 % (0-9) Eosinophils (%) (Auto) 7 % (0-3) Basophils (%) (Auto) 2 % (0-3) Neutrophils # (Auto) 2.7 x10^3uL (1.8-7.7) Lymphocytes # (Auto) 4.6 x10^3/uL (1.0-4.8) Monocytes # (Auto) 0.8 x10^3/uL (0.0-1.1) Eosinophils # (Auto) 0.6 x10^3/uL (0.0-0.7) Basophils # (Auto) 0.2 x10^3/uL (0.0-0.2) Segmented Neutrophils % 21 % (35-66) Band Neutrophils % 4 % (0-9) Lymphocytes % 49 % (24-48) Atypical Lymphocytes % (Manual) 4 % (0-0) Monocytes % 9 % (0-10) Eosinophils % 11 % (0-5) Basophils % 1 % (0-3) Metamyelocytes % 1 % (0-0) Platelet Estimate Increased (ADEQUATE) Hypochromasia Mod Poikilocytosis Slight Anisocytosis Mod Microcytosis Mod Target Cells Few Schistocytes Few Prothrombin Time 14.0 SEC (11.7-14.0) Prothromb Time International Ratio 1.1 (0.8-1.1) Sodium Level 143 mmol/L (136-145) Potassium Level 5.1 mmol/L (3.5-5.1) Chloride Level 107 mmol/L (98-107) Carbon Dioxide Level 26 mmol/L (21-32) Anion Gap 10 (6-14) Blood Urea Nitrogen 20 mg/dL (7-20) Creatinine 1.0 mg/dL (0.6-1.0) Estimated GFR (Cockcroft-Gault) 53.3 BUN/Creatinine Ratio 20 (6-20) Glucose Level 316 mg/dL (70-99) Calcium Level 8.6 mg/dL (8.5-10.1) Magnesium Level 2.3 mg/dL (1.8-2.4) Total Bilirubin 0.2 mg/dL (0.2-1.0) Aspartate Amino Transf (AST/SGOT) 34 U/L (15-37) Alanine Aminotransferase (ALT/SGPT) 27 U/L (14-59) Alkaline Phosphatase 84 U/L (46-116) Troponin I Quantitative < 0.017 ng/mL (0.000-0.055) Total Protein 6.0 g/dL (6.4-8.2) Albumin 3.3 g/dL (3.4-5.0) Albumin/Globulin Ratio 1.2 (1.0-1.7) O2 Saturation 100 % (92-99) Arterial Blood pH 7.00 (7.35-7.45) Arterial Blood pCO2 at Patient Temp 92 mmHg (35-46) Arterial Blood pO2 at Patient Temp 468 mmHg (65-108) Arterial Blood HCO3 22 mmol/L (21-28) Arterial Blood Base Excess -9 mmol/L (-3-3) FiO2 100 Urine Opiates Screen Neg (NEG) Urine Methadone Screen Neg (NEG) Urine Barbiturates Neg (NEG) Urine Phencyclidine Screen Neg (NEG) Urine Amphetamine/Methamphetamine Neg (NEG) Urine Benzodiazepines Screen Pos (NEG) Urine Cocaine Screen Neg (NEG) Urine Cannabinoids Screen Neg (NEG) Urine Ethyl Alcohol Neg (NEG) Stool Occult Blood Positive (NEG) Test 09/21/18 11:22 09/21/18 13:10 09/21/18 19:20 09/21/18 23:00 O2 Saturation 82 % (92-99) 99 % (92-99) Arterial Blood pH 7.24 (7.35-7.45) 7.48 (7.35-7.45) Arterial Blood pCO2 at Patient Temp 57 mmHg (35-46) 30 mmHg (35-46) Arterial Blood pO2 at Patient Temp 60 mmHg (65-108) 168 mmHg (65-108) Arterial Blood HCO3 24 mmol/L (21-28) 21 mmol/L (21-28) Arterial Blood Base Excess -4 mmol/L (-3-3) -2 mmol/L (-3-3) FiO2 40 40 White Blood Count 10.1 x10^3/uL (4.0-11.0) Red Blood Count 3.58 x10^6/uL (3.50-5.40) Hemoglobin 8.6 g/dL (12.0-15.5) Hematocrit 27.1 % (36.0-47.0) Mean Corpuscular Volume 76 fL (79-100) Mean Corpuscular Hemoglobin 24 pg (25-35) Mean Corpuscular Hemoglobin Concent 32 g/dL (31-37) Red Cell Distribution Width 23.4 % (11.5-14.5) Platelet Count 348 x10^3/uL (140-400) Sodium Level 142 mmol/L (136-145) Potassium Level 4.0 mmol/L (3.5-5.1) Chloride Level 110 mmol/L (98-107) Carbon Dioxide Level 20 mmol/L (21-32) Anion Gap 12 (6-14) Blood Urea Nitrogen 17 mg/dL (7-20) Creatinine 0.8 mg/dL (0.6-1.0) Estimated GFR (Cockcroft-Gault) 69.0 Glucose Level 161 mg/dL (70-99) Calcium Level 8.6 mg/dL (8.5-10.1) Glucose (Fingerstick) 197 mg/dL (70-99) Test 09/22/18 08:05 09/22/18 08:40 09/22/18 11:45 White Blood Count 7.4 x10^3/uL (4.0-11.0) Red Blood Count 3.38 x10^6/uL (3.50-5.40) Hemoglobin 8.3 g/dL (12.0-15.5) Hematocrit 25.7 % (36.0-47.0) Mean Corpuscular Volume 76 fL (79-100) Mean Corpuscular Hemoglobin 25 pg (25-35) Mean Corpuscular Hemoglobin Concent 32 g/dL (31-37) Red Cell Distribution Width 23.3 % (11.5-14.5) Platelet Count 313 x10^3/uL (140-400) Neutrophils (%) (Auto) 92 % (31-73) Lymphocytes (%) (Auto) 4 % (24-48) Monocytes (%) (Auto) 4 % (0-9) Eosinophils (%) (Auto) 0 % (0-3) Basophils (%) (Auto) 0 % (0-3) Neutrophils # (Auto) 6.8 x10^3uL (1.8-7.7) Lymphocytes # (Auto) 0.3 x10^3/uL (1.0-4.8) Monocytes # (Auto) 0.3 x10^3/uL (0.0-1.1) Eosinophils # (Auto) 0.0 x10^3/uL (0.0-0.7) Basophils # (Auto) 0.0 x10^3/uL (0.0-0.2) Sodium Level 142 mmol/L (136-145) Potassium Level 4.4 mmol/L (3.5-5.1) Chloride Level 109 mmol/L (98-107) Carbon Dioxide Level 23 mmol/L (21-32) Anion Gap 10 (6-14) Blood Urea Nitrogen 21 mg/dL (7-20) Creatinine 0.9 mg/dL (0.6-1.0) Estimated GFR (Cockcroft-Gault) 60.2 Glucose Level 164 mg/dL (70-99) Calcium Level 8.9 mg/dL (8.5-10.1) Iron Level 9 ug/dL (50-170) Total Iron Binding Capacity 288 ug/dL (250-450) Iron Saturation 3 % (15-34) Vitamin B12 Level 251 pg/mL (247-911) O2 Saturation 98 % (92-99) 98 % (92-99) Arterial Blood pH 7.35 (7.35-7.45) 7.38 (7.35-7.45) Arterial Blood pCO2 at Patient Temp 38 mmHg (35-46) 35 mmHg (35-46) Arterial Blood pO2 at Patient Temp 148 mmHg (65-108) 147 mmHg (65-108) Arterial Blood HCO3 21 mmol/L (21-28) 20 mmol/L (21-28) Arterial Blood Base Excess -5 mmol/L (-3-3) -5 mmol/L (-3-3) FiO2 40% 40% Laboratory Tests Test 09/21/18 19:20 09/21/18 23:00 09/22/18 08:05 09/22/18 08:40 White Blood Count 10.1 x10^3/uL (4.0-11.0) 7.4 x10^3/uL (4.0-11.0) Red Blood Count 3.58 x10^6/uL (3.50-5.40) 3.38 x10^6/uL (3.50-5.40) Hemoglobin 8.6 g/dL (12.0-15.5) 8.3 g/dL (12.0-15.5) Hematocrit 27.1 % (36.0-47.0) 25.7 % (36.0-47.0) Mean Corpuscular Volume 76 fL (79-100) 76 fL (79-100) Mean Corpuscular Hemoglobin 24 pg (25-35) 25 pg (25-35) Mean Corpuscular Hemoglobin Concent 32 g/dL (31-37) 32 g/dL (31-37) Red Cell Distribution Width 23.4 % (11.5-14.5) 23.3 % (11.5-14.5) Platelet Count 348 x10^3/uL (140-400) 313 x10^3/uL (140-400) Sodium Level 142 mmol/L (136-145) 142 mmol/L (136-145) Potassium Level 4.0 mmol/L (3.5-5.1) 4.4 mmol/L (3.5-5.1) Chloride Level 110 mmol/L (98-107) 109 mmol/L (98-107) Carbon Dioxide Level 20 mmol/L (21-32) 23 mmol/L (21-32) Anion Gap 12 (6-14) 10 (6-14) Blood Urea Nitrogen 17 mg/dL (7-20) 21 mg/dL (7-20) Creatinine 0.8 mg/dL (0.6-1.0) 0.9 mg/dL (0.6-1.0) Estimated GFR (Cockcroft-Gault) 69.0 60.2 Glucose Level 161 mg/dL (70-99) 164 mg/dL (70-99) Calcium Level 8.6 mg/dL (8.5-10.1) 8.9 mg/dL (8.5-10.1) Glucose (Fingerstick) 197 mg/dL (70-99) Neutrophils (%) (Auto) 92 % (31-73) Lymphocytes (%) (Auto) 4 % (24-48) Monocytes (%) (Auto) 4 % (0-9) Eosinophils (%) (Auto) 0 % (0-3) Basophils (%) (Auto) 0 % (0-3) Neutrophils # (Auto) 6.8 x10^3uL (1.8-7.7) Lymphocytes # (Auto) 0.3 x10^3/uL (1.0-4.8) Monocytes # (Auto) 0.3 x10^3/uL (0.0-1.1) Eosinophils # (Auto) 0.0 x10^3/uL (0.0-0.7) Basophils # (Auto) 0.0 x10^3/uL (0.0-0.2) Iron Level 9 ug/dL (50-170) Total Iron Binding Capacity 288 ug/dL (250-450) Iron Saturation 3 % (15-34) Vitamin B12 Level 251 pg/mL (247-911) O2 Saturation 98 % (92-99) Arterial Blood pH 7.35 (7.35-7.45) Arterial Blood pCO2 at Patient Temp 38 mmHg (35-46) Arterial Blood pO2 at Patient Temp 148 mmHg (65-108) Arterial Blood HCO3 21 mmol/L (21-28) Arterial Blood Base Excess -5 mmol/L (-3-3) FiO2 40% Test 09/22/18 11:45 O2 Saturation 98 % (92-99) Arterial Blood pH 7.38 (7.35-7.45) Arterial Blood pCO2 at Patient Temp 35 mmHg (35-46) Arterial Blood pO2 at Patient Temp 147 mmHg (65-108) Arterial Blood HCO3 20 mmol/L (21-28) Arterial Blood Base Excess -5 mmol/L (-3-3) FiO2 40% Medications Current Medications Etomidate (Amidate) 20 mg STK-MED ONCE IV ; Start 09/21/18 at 10:27; Stop 09/21/18 at 10:28; Status DC Succinylcholine Chloride (Anectine) 200 mg STK-MED ONCE .ROUTE ; Start 09/21/18 at 10:27; Stop 09/21/18 at 10:28; Status DC Midazolam HCl (Versed) 5 mg STK-MED ONCE .ROUTE ; Start 09/21/18 at 10:28; Stop 09/21/18 at 10:29; Status DC Propofol 50 ml @ As Directed STK-MED ONCE IV ; Start 09/21/18 at 10:40; Stop 09/21/18 at 10:41; Status DC Sodium Chloride 1,000 ml @ 1,000 mls/hr Q1H IV Last administered on 09/21/18at 11:11; Start 09/21/18 at 10:48; Stop 09/21/18 at 11:47; Status DC Methylprednisolone Sodium Succinate (SOLU-Medrol 125MG VIAL) 125 mg 1X ONCE IV Last administered on 09/21/18at 11:14; Start 09/21/18 at 11:00; Stop 09/21/18 at 11:01; Status DC Albuterol/ Ipratropium (Duoneb) 3 ml 1X ONCE NEB Last administered on 09/21/18at 11:00; Start 09/21/18 at 11:00; Stop 09/21/18 at 11:01; Status DC Propofol (Diprivan) 200 mg 1X ONCE IV Last administered on 09/21/18at 10:45; Start 09/21/18 at 11:00; Stop 09/21/18 at 11:01; Status DC Midazolam HCl (Versed) 2 mg STK-MED ONCE .ROUTE ; Start 09/21/18 at 11:46; Stop 09/21/18 at 11:47; Status DC Etomidate (Amidate) 20 mg 1X ONCE IV Last administered on 09/21/18at 10:18; Start 09/21/18 at 12:00; Stop 09/21/18 at 12:04; Status DC Midazolam HCl (Versed) 5 mg 1X ONCE IV Last administered on 09/21/18at 10:30; Start 09/21/18 at 12:00; Stop 09/21/18 at 12:04; Status DC Midazolam HCl (Versed) 2 mg 1X ONCE IV Last administered on 09/21/18at 11:47; Start 09/21/18 at 12:00; Stop 09/21/18 at 12:04; Status DC Midazolam HCl 100 ml @ 0 mls/hr 1X ONCE IV Last administered on 09/21/18at 12:19; Start 09/21/18 at 12:00; Stop 09/21/18 at 12:04; Status DC Midazolam HCl (Versed) 2 mg 1X ONCE IV Last administered on 09/21/18at 12:47; Start 09/21/18 at 13:00; Stop 09/21/18 at 13:01; Status DC Fentanyl Citrate 30 ml @ 0 mls/hr CONT PRN IV SEE PROTOCOL Last administered on 09/22/18at 08:18; Start 09/21/18 at 13:00 Midazolam HCl 100 ml @ 0 mls/hr CONT PRN IV SEE PROTOCOL Last administered on 09/21/18at 22:55; Start 09/21/18 at 13:00 Doxycycline Hyclate 100 mg/ Dextrose 100 ml @ 50 mls/hr Q12HR IV ; Start 09/21/18 at 15:00; Stop 09/21/18 at 16:00; Status DC Enoxaparin Sodium (Lovenox 40mg Syringe) 40 mg QHS SQ ; Start 09/21/18 at 21:00; Stop 09/21/18 at 21:00; Status DC Albuterol Sulfate (Ventolin Neb Soln) 2.5 mg PRN Q2HR PRN NEB [id number]; Start 09/21/18 at 14:45 Albuterol/ Ipratropium (Duoneb) 3 ml RTQID NEB Last administered on 09/22/18at 12:00; Start 09/21/18 at 16:00 Methylprednisolone Sodium Succinate (SOLU-Medrol 125MG VIAL) 80 mg Q8HRS IV Last administered on 09/22/18at 05:52; Start 09/21/18 at 22:00 Doxycycline Hyclate 100 mg/ Dextrose 100 ml @ 50 mls/hr Q12HR IV Last adminis tered on 09/22/18at 08:19; Start 09/21/18 at 19:00 Heparin Sodium (Porcine) (Heparin Sodium) 5,000 unit Q8HRS SQ ; Start 09/21/18 at 22:00; Stop 09/21/18 at 22:00; Status DC Famotidine (Pepcid Vial) 20 mg QHS IVP Last administered on 09/21/18at 22:08; Start 09/21/18 at 21:00; Stop 09/22/18 at 09:37; Status DC Famotidine (Pepcid Vial) 20 mg BID IVP ; Start 09/22/18 at 21:00 Active Scripts Active Mucinex (Guaifenesin) 600 Mg Tablet.er 1,200 Mg PO BID Prednisone 20 Mg Tablet 40 Mg PO DAILY Levaquin (Levofloxacin) 250 Mg Tablet 250 Mg PO DAILY06 Reported Levothyroxine Sodium 50 Mcg Tablet 1 Tab PO DAILY Losartan Potassium 25 Mg Tablet 1 Tab PO DAILY Vitals/I & O Vital Sign - Last 24 Hours 09/21/18 09/21/18 09/21/18 09/21/18 14:10 14:17 14:30 14:37 Temp 98.6 98.6 98.4 98.6 98.6 98.4 Pulse 78 79 79 Resp 16 14 B/P (MAP) 95/45 105/80 106/50 (68) Pulse Ox 100 100 O2 Delivery Ventilator O2 Flow Rate 15.0 09/21/18 09/21/18 09/21/18 09/21/18 15:00 15:00 15:45 16:00 Temp 98.4 98.4 Pulse 80 78 78 78 Resp 14 14 B/P (MAP) 110/51 106/58 (74) 111/51 112/49 (70) Pulse Ox 100 100 O2 Delivery Ventilator Ventilator 09/21/18 09/21/18 09/21/18 09/21/18 16:05 16:06 16:30 16:35 Temp 96.5 96.5 Pulse 77 85 Resp 16 B/P (MAP) 112/49 110/63 Pulse Ox 100 O2 Delivery Ventilator Mechanical Ventilator 09/21/18 09/21/18 09/21/18 09/21/18 17:42 17:44 18:36 19:00 Temp 96.9 96.9 96.9 96.9 Pulse 85 84 84 Resp 20 B/P (MAP) 115/53 114/49 (70) 121/53 (75) Pulse Ox 100 100 100 O2 Delivery Ventilator Ventilator Ventilator 09/21/18 09/21/18 09/21/18 09/21/18 19:54 19:55 20:00 21:00 Temp 98.2 98.2 Pulse 93 92 Resp 16 18 B/P (MAP) 115/56 (75) 101/46 (64) Pulse Ox 100 100 100 O2 Delivery Mechanical Ventilator Ventilator Ventilator Ventilator 09/21/18 09/21/18 09/21/18 09/21/18 21:08 22:00 23:00 23:20 Pulse 93 89 Resp 16 16 B/P (MAP) 106/47 (66) 97/46 (63) Pulse Ox 100 100 100 100 O2 Delivery Ventilator Ventilator Ventilator Ventilator 09/21/18 09/22/18 09/22/18 09/22/18 23:40 00:00 01:00 01:16 Temp 97.9 97.9 Pulse 88 90 Resp 16 16 B/P (MAP) 100/43 (62) 105/45 (65) Pulse Ox 100 100 100 O2 Delivery Mechanical Ventilator Ventilator Ventilator Ventilator 09/22/18 09/22/18 09/22/18 09/22/18 02:00 03:00 03:18 03:41 Pulse 80 87 Resp 16 16 B/P (MAP) 109/47 (67) 100/49 (66) Pulse Ox 100 95 100 O2 Delivery Ventilator Ventilator Ventilator Mechanical Ventilator 09/22/18 09/22/18 09/22/18 09/22/18 04:00 05:00 06:00 07:00 Temp 98.2 98.6 98.2 98.6 Pulse 88 88 85 88 Resp 16 16 16 16 B/P (MAP) 102/49 (66) 102/50 (67) 104/47 (66) 109/49 (69) Pulse Ox 96 100 99 99 O2 Delivery Ventilator Ventilator Ventilator Ventilator 09/22/18 09/22/18 09/22/18 09/22/18 08:00 08:00 08:18 08:26 Pulse 88 Resp 16 B/P (MAP) 106/48 (67) Pulse Ox 99 99 99 O2 Delivery Mechanical Ventilator Ventilator Ventilator O2 Flow Rate 15.0 09/22/18 09/22/18 09/22/18 09/22/18 08:53 08:56 09:00 10:00 Pulse 88 86 Resp 16 16 B/P (MAP) 97/50 (66) 107/52 (70) Pulse Ox 99 99 99 99 O2 Delivery Ventilator Ventilator Ventilator O2 Flow Rate 15.0 09/22/18 09/22/18 09/22/18 09/22/18 11:00 11:11 11:55 12:00 Pulse 90 Resp 16 B/P (MAP) 127/53 (77) Pulse Ox 99 99 100 O2 Delivery Ventilator Ventilator Ventilator Nasal Cannula O2 Flow Rate 2.0 09/22/18 12:00 Pulse 105 Resp 16 B/P (MAP) 123/56 (78) Pulse Ox 97 O2 Delivery Room Air O2 Flow Rate 2.0 Intake and Output 09/21/18 09/21/18 09/22/18 15:00 23:00 07:00 Intake Total 1308 ml 436 ml 134 ml Output Total 640 ml 350 ml Balance 1308 ml -204 ml -216 ml MATTHEW WHITLOCK MD September 22, 2018 14:11
[2018-09-22] MEDS ORDERED: CYANOCOBALAMIN (VITAMIN B-12) 1,000 MCG/ML VIAL IM ONE (14:15)
[2018-09-22] MEDS ORDERED: DEXTROSE 50% 25 GM / 50ML DISP.SYRIN. IV PRN (14:15)
[2018-09-22] MEDS: INSULIN LISPRO 300 UNITS/3 ML INSULN.PEN. SQ SCH (15:49)
--- NOTE | 2018-09-22 16:37 | NUR ---
SS following for discharge planning. SS reviewed pt chart. Pt is from home with significant other and is currently requiring oxygen. No discharge needs noted at this time. SS will continue to follow for discharge planning.
[2018-09-22] MEDS: BUDESONIDE 0.5 MG/2 ML NEBU. NEB SCH (20:47)
[2018-09-22] MEDS: rOPINIRole 0.25 MG TABLET. PO SCH (20:56)
[2018-09-22] MEDS: FAMOTIDINE 20 MG/2 ML VIAL IVP SCH (20:57)
[2018-09-22] MEDS: ASA/APAP/CAFFEINE 250/250/65MG TABLET. PO PRN (21:04)
[2018-09-23] VITALS (18 sets, daily range): BP systolic 126–173; BP diastolic 49–93
[2018-09-23] MEDS: LEVOTHYROXINE 50 MCG TABLET PO SCH (05:58)
[2018-09-23] MEDS: ASA/APAP/CAFFEINE 250/250/65MG TABLET. PO PRN ×2 (05:58→11:49)
[2018-09-23] MEDS: methylPREDNISolone SOD SUCC PF 125 MG/2 ML VIAL. IV SCH (05:59)
--- NOTE | 2018-09-23 06:28 | NUR ---
Pt has 10 $20 bills for a total of $200 in her pocket. Encouraged patient to turn into security. Pt refuses states she "does not want to forget it". Assured pt that staff would return it to her upon discharge but she continues to prefer to keep money with her.
[2018-09-23] MEDS: IPRATRPIUM/ALBUTEROL 0.5/2.5MG 3 ML NEBU. NEB SCH ×4 (07:35→20:00)
[2018-09-23] MEDS: BUDESONIDE 0.5 MG/2 ML NEBU. NEB SCH ×2 (07:36→20:00)
[2018-09-23] MEDS: INSULIN LISPRO 300 UNITS/3 ML INSULN.PEN. SQ SCH ×3 (08:39→16:23)
[2018-09-23] MEDS: DOXYCYCLINE HYCLATE 100 MG in IV DEXTROSE 5% 100ML 100 ML IV SCH (09:00)
[2018-09-23] MEDS: LOSARTAN POTASSIUM 25 MG TABLET. PO SCH (09:01)
[2018-09-23] MEDS: FAMOTIDINE 20 MG/2 ML VIAL IVP SCH ×2 (09:01→21:12)
--- NOTE | 2018-09-23 10:22 | PDOC ---
PROGRESS NOTES Chief Complaint Chief Complaint Acute hypercapnic hypoxemic respiratory failure - weaning trial per pulm Acute exacerbation of chronic obstructive pulmonary disease - steroids, nebs Acute blood loss anemia - transfused 2u PRBC, GI consulted for fecal occult positive. B12, iron as well Leg cramps - mag oxide Urine retention - no history, will d/c streeter History of Present Illness History of Present Illness 78-year-old female who appears somewhat younger than her stated age. She presented with respiratory failure. She has known COPD, although her states she has never smoked. He states that she got exposed to a lot of chemicals when she was younger. Enroute to ED she received several breathing treatments. When she was received at the ER, she was still hypoxic and was tiring out, had ABG with pH 7 and PCO2 of 92, was subsequently intubated. Noted with anemia, Hb 6.6 and occult blood positive. Pulm and GI consulted, admitted to ICU initially. 09/22: Seen sedated on vent this morning on AC with PEEP of 7 and FiO2 of 40%. Hb up to 8.3 s/p 2u PRBC. Extubated without event in afternoon Still coughing up a lot of yellow sputum. Still with streeter in place. Notes bad leg cramping now, has had success with drinking pickle juice in the past for this. Vitals Vitals Vital Signs Date Time Temp Pulse Resp B/P (MAP) Pulse Ox O2 Delivery O2 Flow Rate FiO2 09/23/18 10:00 99 18 157/68 (97) 97 Nasal Cannula 2.0 09/23/18 07:00 98.2 98.2 Physical Exam General: Alert, Oriented X3, Cooperative, No acute distress Heart: Regular rate Lungs: Clear Abdomen: Normal bowel sounds, Soft Extremities: No clubbing, No cyanosis Skin: No rashes, No breakdown Labs LABS Laboratory Tests Test 09/22/18 11:45 09/23/18 07:26 O2 Saturation 98 % (92-99) Arterial Blood pH 7.38 (7.35-7.45) Arterial Blood pCO2 at Patient Temp 35 mmHg (35-46) Arterial Blood pO2 at Patient Temp 147 mmHg (65-108) Arterial Blood HCO3 20 mmol/L (21-28) Arterial Blood Base Excess -5 mmol/L (-3-3) FiO2 40% Glucose (Fingerstick) 167 mg/dL (70-99) Assessment and Plan Assessmemt and Plan Problems Medical Problems: (1) Acute respiratory failure Status: Acute (2) COPD (chronic obstructive pulmonary disease) Status: Acute (3) Hypercarbia Status: Acute Comment Review of Relevant I have reviewed the following items arnulfo (where applicable) has been applied. Labs Laboratory Tests Test 09/21/18 10:18 09/21/18 10:20 09/21/18 11:00 09/21/18 11:15 White Blood Count 8.9 x10^3/uL (4.0-11.0) Red Blood Count 2.99 x10^6/uL (3.50-5.40) Hemoglobin 6.6 g/dL (12.0-15.5) Hematocrit 22.6 % (36.0-47.0) Mean Corpuscular Volume 76 fL (79-100) Mean Corpuscular Hemoglobin 22 pg (25-35) Mean Corpuscular Hemoglobin Concent 29 g/dL (31-37) Red Cell Distribution Width 23.7 % (11.5-14.5) Platelet Count 462 x10^3/uL (140-400) Neutrophils (%) (Auto) 30 % (31-73) Lymphocytes (%) (Auto) 52 % (24-48) Monocytes (%) (Auto) 10 % (0-9) Eosinophils (%) (Auto) 7 % (0-3) Basophils (%) (Auto) 2 % (0-3) Neutrophils # (Auto) 2.7 x10^3uL (1.8-7.7) Lymphocytes # (Auto) 4.6 x10^3/uL (1.0-4.8) Monocytes # (Auto) 0.8 x10^3/uL (0.0-1.1) Eosinophils # (Auto) 0.6 x10^3/uL (0.0-0.7) Basophils # (Auto) 0.2 x10^3/uL (0.0-0.2) Segmented Neutrophils % 21 % (35-66) Band Neutrophils % 4 % (0-9) Lymphocytes % 49 % (24-48) Atypical Lymphocytes % (Manual) 4 % (0-0) Monocytes % 9 % (0-10) Eosinophils % 11 % (0-5) Basophils % 1 % (0-3) Metamyelocytes % 1 % (0-0) Platelet Estimate Increased (ADEQUATE) Hypochromasia Mod Poikilocytosis Slight Anisocytosis Mod Microcytosis Mod Target Cells Few Schistocytes Few Prothrombin Time 14.0 SEC (11.7-14.0) Prothromb Time International Ratio 1.1 (0.8-1.1) Sodium Level 143 mmol/L (136-145) Potassium Level 5.1 mmol/L (3.5-5.1) Chloride Level 107 mmol/L (98-107) Carbon Dioxide Level 26 mmol/L (21-32) Anion Gap 10 (6-14) Blood Urea Nitrogen 20 mg/dL (7-20) Creatinine 1.0 mg/dL (0.6-1.0) Estimated GFR (Cockcroft-Gault) 53.3 BUN/Creatinine Ratio 20 (6-20) Glucose Level 316 mg/dL (70-99) Calcium Level 8.6 mg/dL (8.5-10.1) Magnesium Level 2.3 mg/dL (1.8-2.4) Total Bilirubin 0.2 mg/dL (0.2-1.0) Aspartate Amino Transf (AST/SGOT) 34 U/L (15-37) Alanine Aminotransferase (ALT/SGPT) 27 U/L (14-59) Alkaline Phosphatase 84 U/L (46-116) Troponin I Quantitative < 0.017 ng/mL (0.000-0.055) Total Protein 6.0 g/dL (6.4-8.2) Albumin 3.3 g/dL (3.4-5.0) Albumin/Globulin Ratio 1.2 (1.0-1.7) O2 Saturation 100 % (92-99) Arterial Blood pH 7.00 (7.35-7.45) Arterial Blood pCO2 at Patient Temp 92 mmHg (35-46) Arterial Blood pO2 at Patient Temp 468 mmHg (65-108) Arterial Blood HCO3 22 mmol/L (21-28) Arterial Blood Base Excess -9 mmol/L (-3-3) FiO2 100 Urine Opiates Screen Neg (NEG) Urine Methadone Screen Neg (NEG) Urine Barbiturates Neg (NEG) Urine Phencyclidine Screen Neg (NEG) Urine Amphetamine/Methamphetamine Neg (NEG) Urine Benzodiazepines Screen Pos (NEG) Urine Cocaine Screen Neg (NEG) Urine Cannabinoids Screen Neg (NEG) Urine Ethyl Alcohol Neg (NEG) Stool Occult Blood Positive (NEG) Test 09/21/18 11:22 09/21/18 13:10 09/21/18 19:20 09/21/18 23:00 O2 Saturation 82 % (92-99) 99 % (92-99) Arterial Blood pH 7.24 (7.35-7.45) 7.48 (7.35-7.45) Arterial Blood pCO2 at Patient Temp 57 mmHg (35-46) 30 mmHg (35-46) Arterial Blood pO2 at Patient Temp 60 mmHg (65-108) 168 mmHg (65-108) Arterial Blood HCO3 24 mmol/L (21-28) 21 mmol/L (21-28) Arterial Blood Base Excess -4 mmol/L (-3-3) -2 mmol/L (-3-3) FiO2 40 40 White Blood Count 10.1 x10^3/uL (4.0-11.0) Red Blood Count 3.58 x10^6/uL (3.50-5.40) Hemoglobin 8.6 g/dL (12.0-15.5) Hematocrit 27.1 % (36.0-47.0) Mean Corpuscular Volume 76 fL (79-100) Mean Corpuscular Hemoglobin 24 pg (25-35) Mean Corpuscular Hemoglobin Concent 32 g/dL (31-37) Red Cell Distribution Width 23.4 % (11.5-14.5) Platelet Count 348 x10^3/uL (140-400) Sodium Level 142 mmol/L (136-145) Potassium Level 4.0 mmol/L (3.5-5.1) Chloride Level 110 mmol/L (98-107) Carbon Dioxide Level 20 mmol/L (21-32) Anion Gap 12 (6-14) Blood Urea Nitrogen 17 mg/dL (7-20) Creatinine 0.8 mg/dL (0.6-1.0) Estimated GFR (Cockcroft-Gault) 69.0 Glucose Level 161 mg/dL (70-99) Calcium Level 8.6 mg/dL (8.5-10.1) Glucose (Fingerstick) 197 mg/dL (70-99) Test 09/22/18 08:05 09/22/18 08:40 09/22/18 11:45 09/23/18 07:26 White Blood Count 7.4 x10^3/uL (4.0-11.0) Red Blood Count 3.38 x10^6/uL (3.50-5.40) Hemoglobin 8.3 g/dL (12.0-15.5) Hematocrit 25.7 % (36.0-47.0) Mean Corpuscular Volume 76 fL (79-100) Mean Corpuscular Hemoglobin 25 pg (25-35) Mean Corpuscular Hemoglobin Concent 32 g/dL (31-37) Red Cell Distribution Width 23.3 % (11.5-14.5) Platelet Count 313 x10^3/uL (140-400) Neutrophils (%) (Auto) 92 % (31-73) Lymphocytes (%) (Auto) 4 % (24-48) Monocytes (%) (Auto) 4 % (0-9) Eosinophils (%) (Auto) 0 % (0-3) Basophils (%) (Auto) 0 % (0-3) Neutrophils # (Auto) 6.8 x10^3uL (1.8-7.7) Lymphocytes # (Auto) 0.3 x10^3/uL (1.0-4.8) Monocytes # (Auto) 0.3 x10^3/uL (0.0-1.1) Eosinophils # (Auto) 0.0 x10^3/uL (0.0-0.7) Basophils # (Auto) 0.0 x10^3/uL (0.0-0.2) Sodium Level 142 mmol/L (136-145) Potassium Level 4.4 mmol/L (3.5-5.1) Chloride Level 109 mmol/L (98-107) Carbon Dioxide Level 23 mmol/L (21-32) Anion Gap 10 (6-14) Blood Urea Nitrogen 21 mg/dL (7-20) Creatinine 0.9 mg/dL (0.6-1.0) Estimated GFR (Cockcroft-Gault) 60.2 Glucose Level 164 mg/dL (70-99) Calcium Level 8.9 mg/dL (8.5-10.1) Iron Level 9 ug/dL (50-170) Total Iron Binding Capacity 288 ug/dL (250-450) Iron Saturation 3 % (15-34) Vitamin B12 Level 251 pg/mL (247-911) O2 Saturation 98 % (92-99) 98 % (92-99) Arterial Blood pH 7.35 (7.35-7.45) 7.38 (7.35-7.45) Arterial Blood pCO2 at Patient Temp 38 mmHg (35-46) 35 mmHg (35-46) Arterial Blood pO2 at Patient Temp 148 mmHg (65-108) 147 mmHg (65-108) Arterial Blood HCO3 21 mmol/L (21-28) 20 mmol/L (21-28) Arterial Blood Base Excess -5 mmol/L (-3-3) -5 mmol/L (-3-3) FiO2 40% 40% Glucose (Fingerstick) 167 mg/dL (70-99) Laboratory Tests Test 09/22/18 11:45 09/23/18 07:26 O2 Saturation 98 % (92-99) Arterial Blood pH 7.38 (7.35-7.45) Arterial Blood pCO2 at Patient Temp 35 mmHg (35-46) Arterial Blood pO2 at Patient Temp 147 mmHg (65-108) Arterial Blood HCO3 20 mmol/L (21-28) Arterial Blood Base Excess -5 mmol/L (-3-3) FiO2 40% Glucose (Fingerstick) 167 mg/dL (70-99) Medications Current Medications Etomidate (Amidate) 20 mg STK-MED ONCE IV ; Start 09/21/18 at 10:27; Stop 09/21/18 at 10:28; Status DC Succinylcholine Chloride (Anectine) 200 mg STK-MED ONCE .ROUTE ; Start 09/21/18 at 10:27; Stop 09/21/18 at 10:28; Status DC Midazolam HCl (Versed) 5 mg STK-MED ONCE .ROUTE ; Start 09/21/18 at 10:28; Stop 09/21/18 at 10:29; Status DC Propofol 50 ml @ As Directed STK-MED ONCE IV ; Start 09/21/18 at 10:40; Stop 09/21/18 at 10:41; Status DC Sodium Chloride 1,000 ml @ 1,000 mls/hr Q1H IV Last administered on 09/21/18at 11:11; Start 09/21/18 at 10:48; Stop 09/21/18 at 11:47; Status DC Methylprednisolone Sodium Succinate (SOLU-Medrol 125MG VIAL) 125 mg 1X ONCE IV Last administered on 09/21/18at 11:14; Start 09/21/18 at 11:00; Stop 09/21/18 at 11:01; Status DC Albuterol/ Ipratropium (Duoneb) 3 ml 1X ONCE NEB Last administered on 09/21/18at 11:00; Start 09/21/18 at 11:00; Stop 09/21/18 at 11:01; Status DC Propofol (Diprivan) 200 mg 1X ONCE IV Last administered on 09/21/18at 10:45; Start 09/21/18 at 11:00; Stop 09/21/18 at 11:01; Status DC Midazolam HCl (Versed) 2 mg STK-MED ONCE .ROUTE ; Start 09/21/18 at 11:46; Stop 09/21/18 at 11:47; Status DC Etomidate (Amidate) 20 mg 1X ONCE IV Last administered on 09/21/18at 10:18; Start 09/21/18 at 12:00; Stop 09/21/18 at 12:04; Status DC Midazolam HCl (Versed) 5 mg 1X ONCE IV Last administered on 09/21/18at 10:30; Start 09/21/18 at 12:00; Stop 09/21/18 at 12:04; Status DC Midazolam HCl (Versed) 2 mg 1X ONCE IV Last administered on 09/21/18at 11:47; Start 09/21/18 at 12:00; Stop 09/21/18 at 12:04; Status DC Midazolam HCl 100 ml @ 0 mls/hr 1X ONCE IV Last administered on 09/21/18at 12:19; Start 09/21/18 at 12:00; Stop 09/21/18 at 12:04; Status DC Midazolam HCl (Versed) 2 mg 1X ONCE IV Last administered on 09/21/18at 12:47; Start 09/21/18 at 13:00; Stop 09/21/18 at 13:01; Status DC Fentanyl Citrate 30 ml @ 0 mls/hr CONT PRN IV SEE PROTOCOL Last administered on 09/22/18at 08:18; Start 09/21/18 at 13:00 Midazolam HCl 100 ml @ 0 mls/hr CONT PRN IV SEE PROTOCOL Last administered on 09/21/18at 22:55; Start 09/21/18 at 13:00 Doxycycline Hyclate 100 mg/ Dextrose 100 ml @ 50 mls/hr Q12HR IV ; Start 09/21/18 at 15:00; Stop 09/21/18 at 16:00; Status DC Enoxaparin Sodium (Lovenox 40mg Syringe) 40 mg QHS SQ ; Start 09/21/18 at 21:00; Stop 09/21/18 at 21:00; Status DC Albuterol Sulfate (Ventolin Neb Soln) 2.5 mg PRN Q2HR PRN NEB DYSPNEA Last administered on 09/23/18at 04:13; Start 09/21/18 at 14:45 Albuterol/ Ipratropium (Duoneb) 3 ml RTQID NEB Last administered on 09/23/18at 07:35; Start 09/21/18 at 16:00 Methylprednisolone Sodium Succinate (SOLU-Medrol 125MG VIAL) 80 mg Q8HRS IV Last administered on 09/23/18at 05:59; Start 09/21/18 at 22:00 Doxycycline Hyclate 100 mg/ Dextrose 100 ml @ 50 mls/hr Q12HR IV Last administered on 09/23/18at 09:00; Start 09/21/18 at 19:00 Heparin Sodium (Porcine) (Heparin Sodium) 5,000 unit Q8HRS SQ ; Start 09/21/18 at 22:00; Stop 09/21/18 at 22:00; Status DC Famotidine (Pepcid Vial) 20 mg QHS IVP Last administered on 09/21/18at 22:08; Start 09/21/18 at 21:00; Stop 09/22/18 at 09:37; Status DC Famotidine (Pepcid Vial) 20 mg BID IVP Last administered on 09/23/18at 09:01; Start 09/22/18 at 21:00 Guaifenesin (Mucinex) 1,200 mg BID PO Last administered on 09/23/18at 09:02; Start 09/22/18 at 21:00 Losartan Potassium (Cozaar) 25 mg DAILY PO Last administered on 09/23/18at 09:01; Start 09/23/18 at 09:00 Levothyroxine Sodium (Synthroid) 50 mcg DAILY06 PO Last administered on 05:58; Start 09/23/18 at 06:00 Insulin Human Lispro (HumaLOG) 0-5 UNITS TIDWMEALS SQ Last administered on 09/23/18at 08:39; Start 09/22/18 at 17:00 Dextrose (Dextrose 50%-Water Syringe) 12.5 gm PRN Q15MIN PRN IV SEE COMMENTS; Start 09/22/18 at 14:15 Cyanocobalamin (Vitamin B-12) 1,000 mcg 1X ONCE IM Last administered on 09/22/18at 15:48; Start 09/22/18 at 14:15; Stop 09/22/18 at 14:16; Status DC Budesonide (Pulmicort) 0.5 mg RTBID NEB Last administered on 09/23/18at 07:36; Start 09/22/18 at 20:00 Ropinirole HCl (Requip) 0.25 mg HS PO Last administered on 09/22/18at 20:56; Start 09/22/18 at 21:00 Acetaminophen/ Aspirin/Caffeine (Excedrin Migraine) 1 tab PRN Q6HRS PRN PO MIGRAINE HEADACHE Last administered on 09/23/18at 05:58; Start 09/22/18 at 20:15 Active Scripts Active Mucinex (Guaifenesin) 600 Mg Tablet.er 1,200 Mg PO BID Reported Levothyroxine Sodium 50 Mcg Tablet 1 Tab PO DAILY Losartan Potassium (Losartan Potassium) 25 Mg Tablet 1 Tab PO DAILY Vitals/I & O Vital Sign - Last 24 Hours 09/22/18 09/22/18 09/22/18 09/22/18 11:00 11:11 11:55 12:00 Pulse 90 Resp 16 B/P (MAP) 127/53 (77) Pulse Ox 99 99 100 O2 Delivery Ventilator Ventilator Ventilator Nasal Cannula O2 Flow Rate 2.0 09/22/18 09/22/18 09/22/18 09/22/18 12:00 13:00 14:00 14:57 Pulse 105 105 103 Resp 16 16 16 B/P (MAP) 123/56 (78) 130/56 (80) 123/58 (79) Pulse Ox 97 97 97 97 O2 Delivery Room Air Room Air Room Air Nasal Cannula O2 Flow Rate 2.0 2.0 2.0 2.0 09/22/18 09/22/18 09/22/18 09/22/18 15:00 16:00 19:00 20:00 Temp 98.9 98.9 Pulse 101 108 Resp 16 20 B/P (MAP) 137/60 (85) 145/75 (98) Pulse Ox 97 96 O2 Delivery Room Air Nasal Cannula Nasal Cannula Nasal Cannula O2 Flow Rate 2.0 2.0 2.0 2.0 09/22/18 09/22/18 09/22/18 09/22/18 20:00 20:49 20:49 21:00 Pulse 100 114 Resp 18 20 B/P (MAP) 148/69 (95) 142/56 (84) Pulse Ox 96 97 97 96 O2 Delivery Nasal Cannula Nasal Cannula Nasal Cannula Nasal Cannula O2 Flow Rate 2.0 2.0 2.0 2.0 09/22/18 09/22/18 09/22/18 09/23/18 22:30 23:25 23:53 00:25 Temp 98.7 98.7 Pulse 112 112 108 Resp 22 20 B/P (MAP) 121/67 (85) 136/56 (82) 126/49 (74) Pulse Ox 98 97 96 O2 Delivery Nasal Cannula Nasal Cannula Nasal Cannula Nasal Cannula O2 Flow Rate 2.0 2.0 2.0 2.0 09/23/18 09/23/18 09/23/18 09/23/18 01:07 02:18 03:27 04:12 Pulse 114 103 98 Resp 22 20 B/P (MAP) 146/60 (88) 143/62 (89) 139/56 (83) Pulse Ox 92 93 95 97 O2 Delivery Nasal Cannula Nasal Cannula Nasal Cannula Nasal Cannula O2 Flow Rate 2.0 2.0 2.0 2.0 09/23/18 09/23/18 09/23/18 09/23/18 04:23 04:24 05:08 06:01 Temp 98.5 98.5 Pulse 106 89 98 Resp 20 22 B/P (MAP) 169/93 (118) 157/81 (106) 136/64 (88) Pulse Ox 93 98 95 O2 Delivery Nasal Cannula Nasal Cannula Nasal Cannula Nasal Cannula O2 Flow Rate 2.0 2.0 2.0 2.0 09/23/18 09/23/18 09/23/18 09/23/18 07:00 07:36 08:00 08:00 Temp 98.2 98.2 Pulse 97 97 Resp 20 18 B/P (MAP) 144/64 (90) 153/70 (97) Pulse Ox 96 96 O2 Delivery Nasal Cannula Nasal Cannula Nasal Cannula Nasal Cannula O2 Flow Rate 2.0 2.0 2.0 2.0 09/23/18 09/23/18 09/23/18 09:00 09:01 10:00 Pulse 103 99 Resp 18 18 B/P (MAP) 159/79 (105) 159/79 157/68 (97) Pulse Ox 97 O2 Delivery Nasal Cannula Nasal Cannula O2 Flow Rate 2.0 2.0 Intake and Output 09/22/18 09/22/18 09/23/18 14:59 22:59 06:59 Intake Total 100 ml 240 ml 200 ml Output Total 160 ml 640 ml 350 ml Balance -60 ml -400 ml -150 ml MATTHEW WHITLOCK MD September 23, 2018 10:22
[2018-09-23] MEDS: MAGNESIUM OXIDE 400 MG TABLET PO SCH ×3 (10:25→21:13)
--- NOTE | 2018-09-23 10:41 | NUR ---
Patient verb. understanding POC: transfer to med-surg. unit today, dc streeter catheter. Continue cares and monitor.
--- NOTE | 2018-09-23 11:10 | PDOC ---
PULMONARY PROGRESS NOTES Subjective EXTUBATED 09/22 DOING WELL Vitals Vital Signs Date Time Temp Pulse Resp B/P (MAP) Pulse Ox O2 Delivery O2 Flow Rate FiO2 09/23/18 10:00 99 18 157/68 (97) 97 Nasal Cannula 2.0 09/23/18 07:00 98.2 98.2 General: Alert, No acute distress HEENT: Other Lungs: Clear Cardiovascular: S1, S2 Abdomen: Soft, Non-tender Neuro Exam: Alert Extremities: No Edema Skin: Warm Labs Laboratory Tests Test 09/21/18 11:15 09/21/18 11:22 09/21/18 13:10 09/21/18 19:20 Stool Occult Blood Positive (NEG) O2 Saturation 82 % (92-99) 99 % (92-99) Arterial Blood pH 7.24 (7.35-7.45) 7.48 (7.35-7.45) Arterial Blood pCO2 at Patient Temp 57 mmHg (35-46) 30 mmHg (35-46) Arterial Blood pO2 at Patient Temp 60 mmHg (65-108) 168 mmHg (65-108) Arterial Blood HCO3 24 mmol/L (21-28) 21 mmol/L (21-28) Arterial Blood Base Excess -4 mmol/L (-3-3) -2 mmol/L (-3-3) FiO2 40 40 White Blood Count 10.1 x10^3/uL (4.0-11.0) Red Blood Count 3.58 x10^6/uL (3.50-5.40) Hemoglobin 8.6 g/dL (12.0-15.5) Hematocrit 27.1 % (36.0-47.0) Mean Corpuscular Volume 76 fL (79-100) Mean Corpuscular Hemoglobin 24 pg (25-35) Mean Corpuscular Hemoglobin Concent 32 g/dL (31-37) Red Cell Distribution Width 23.4 % (11.5-14.5) Platelet Count 348 x10^3/uL (140-400) Sodium Level 142 mmol/L (136-145) Potassium Level 4.0 mmol/L (3.5-5.1) Chloride Level 110 mmol/L (98-107) Carbon Dioxide Level 20 mmol/L (21-32) Anion Gap 12 (6-14) Blood Urea Nitrogen 17 mg/dL (7-20) Creatinine 0.8 mg/dL (0.6-1.0) Estimated GFR (Cockcroft-Gault) 69.0 Glucose Level 161 mg/dL (70-99) Calcium Level 8.6 mg/dL (8.5-10.1) Test 09/21/18 23:00 09/22/18 08:05 09/22/18 08:40 09/22/18 11:45 Glucose (Fingerstick) 197 mg/dL (70-99) White Blood Count 7.4 x10^3/uL (4.0-11.0) Red Blood Count 3.38 x10^6/uL (3.50-5.40) Hemoglobin 8.3 g/dL (12.0-15.5) Hematocrit 25.7 % (36.0-47.0) Mean Corpuscular Volume 76 fL (79-100) Mean Corpuscular Hemoglobin 25 pg (25-35) Mean Corpuscular Hemoglobin Concent 32 g/dL (31-37) Red Cell Distribution Width 23.3 % (11.5-14.5) Platelet Count 313 x10^3/uL (140-400) Neutrophils (%) (Auto) 92 % (31-73) Lymphocytes (%) (Auto) 4 % (24-48) Monocytes (%) (Auto) 4 % (0-9) Eosinophils (%) (Auto) 0 % (0-3) Basophils (%) (Auto) 0 % (0-3) Neutrophils # (Auto) 6.8 x10^3uL (1.8-7.7) Lymphocytes # (Auto) 0.3 x10^3/uL (1.0-4.8) Monocytes # (Auto) 0.3 x10^3/uL (0.0-1.1) Eosinophils # (Auto) 0.0 x10^3/uL (0.0-0.7) Basophils # (Auto) 0.0 x10^3/uL (0.0-0.2) Sodium Level 142 mmol/L (136-145) Potassium Level 4.4 mmol/L (3.5-5.1) Chloride Level 109 mmol/L (98-107) Carbon Dioxide Level 23 mmol/L (21-32) Anion Gap 10 (6-14) Blood Urea Nitrogen 21 mg/dL (7-20) Creatinine 0.9 mg/dL (0.6-1.0) Estimated GFR (Cockcroft-Gault) 60.2 Glucose Level 164 mg/dL (70-99) Calcium Level 8.9 mg/dL (8.5-10.1) Iron Level 9 ug/dL (50-170) Total Iron Binding Capacity 288 ug/dL (250-450) Iron Saturation 3 % (15-34) Vitamin B12 Level 251 pg/mL (247-911) O2 Saturation 98 % (92-99) 98 % (92-99) Arterial Blood pH 7.35 (7.35-7.45) 7.38 (7.35-7.45) Arterial Blood pCO2 at Patient Temp 38 mmHg (35-46) 35 mmHg (35-46) Arterial Blood pO2 at Patient Temp 148 mmHg (65-108) 147 mmHg (65-108) Arterial Blood HCO3 21 mmol/L (21-28) 20 mmol/L (21-28) Arterial Blood Base Excess -5 mmol/L (-3-3) -5 mmol/L (-3-3) FiO2 40% 40% Test 09/23/18 07:26 Glucose (Fingerstick) 167 mg/dL (70-99) Laboratory Tests Test 09/22/18 11:45 09/23/18 07:26 O2 Saturation 98 % (92-99) Arterial Blood pH 7.38 (7.35-7.45) Arterial Blood pCO2 at Patient Temp 35 mmHg (35-46) Arterial Blood pO2 at Patient Temp 147 mmHg (65-108) Arterial Blood HCO3 20 mmol/L (21-28) Arterial Blood Base Excess -5 mmol/L (-3-3) FiO2 40% Glucose (Fingerstick) 167 mg/dL (70-99) Medications Active Scripts Medications Dose Route/Sig Max Daily Dose Days Date Category Mucinex (Guaifenesin) 600 Mg Tablet.er 1,200 Mg PO BID 08/11/16 Rx Prednisone 20 Mg Tablet 40 Mg PO DAILY 08/11/16 Rx Levaquin (Levofloxacin) 250 Mg Tablet 250 Mg PO DAILY06 08/11/16 Rx Levothyroxine Sodium 50 Mcg Tablet 1 Tab PO DAILY 08/07/16 Reported Losartan Potassium 25 Mg Tablet 1 Tab PO DAILY 12/27/13 Reported Impression . 1. Acute hypercapnic hypoxemic respiratory failure. 2. Acute exacerbation of chronic obstructive pulmonary disease.(second hand exposure) 3. Acute blood loss anemia. Plan . 1. extubated 5/2. doing well 2. Steroids taper 3. Nebulized treatments. 4. Doxycycline for atypical infection. 5. DVT and GI prophylaxis. 6. d/w RN 7. transfer to floor NASREEN ADAMS MD September 23, 2018 11:10
--- NOTE | 2018-09-23 12:05 | NUR ---
Atraumatic removal streeter catheter per order after procedure explained to patient. Patient tolerated well. Addendum: 09/23/18 at 1211 by MITCHELL FALL RN Amended: Links added.
--- NOTE | 2018-09-23 13:59 | PDOC ---
G I PROGRESS NOTE Reason for Follow-up Anemia Subjective Patient tired Physical Exam Lungs decreased BS CV S1 S2 ABD +BS, soft, nontender Review of Relevant I have reviewed the following items arnulfo (where applicable) has been applied. Labs Laboratory Tests Test 09/21/18 19:20 09/21/18 23:00 09/22/18 08:05 09/22/18 08:40 White Blood Count 10.1 x10^3/uL (4.0-11.0) 7.4 x10^3/uL (4.0-11.0) Red Blood Count 3.58 x10^6/uL (3.50-5.40) 3.38 x10^6/uL (3.50-5.40) Hemoglobin 8.6 g/dL (12.0-15.5) 8.3 g/dL (12.0-15.5) Hematocrit 27.1 % (36.0-47.0) 25.7 % (36.0-47.0) Mean Corpuscular Volume 76 fL (79-100) 76 fL (79-100) Mean Corpuscular Hemoglobin 24 pg (25-35) 25 pg (25-35) Mean Corpuscular Hemoglobin Concent 32 g/dL (31-37) 32 g/dL (31-37) Red Cell Distribution Width 23.4 % (11.5-14.5) 23.3 % (11.5-14.5) Platelet Count 348 x10^3/uL (140-400) 313 x10^3/uL (140-400) Sodium Level 142 mmol/L (136-145) 142 mmol/L (136-145) Potassium Level 4.0 mmol/L (3.5-5.1) 4.4 mmol/L (3.5-5.1) Chloride Level 110 mmol/L (98-107) 109 mmol/L (98-107) Carbon Dioxide Level 20 mmol/L (21-32) 23 mmol/L (21-32) Anion Gap 12 (6-14) 10 (6-14) Blood Urea Nitrogen 17 mg/dL (7-20) 21 mg/dL (7-20) Creatinine 0.8 mg/dL (0.6-1.0) 0.9 mg/dL (0.6-1.0) Estimated GFR (Cockcroft-Gault) 69.0 60.2 Glucose Level 161 mg/dL (70-99) 164 mg/dL (70-99) Calcium Level 8.6 mg/dL (8.5-10.1) 8.9 mg/dL (8.5-10.1) Glucose (Fingerstick) 197 mg/dL (70-99) Neutrophils (%) (Auto) 92 % (31-73) Lymphocytes (%) (Auto) 4 % (24-48) Monocytes (%) (Auto) 4 % (0-9) Eosinophils (%) (Auto) 0 % (0-3) Basophils (%) (Auto) 0 % (0-3) Neutrophils # (Auto) 6.8 x10^3uL (1.8-7.7) Lymphocytes # (Auto) 0.3 x10^3/uL (1.0-4.8) Monocytes # (Auto) 0.3 x10^3/uL (0.0-1.1) Eosinophils # (Auto) 0.0 x10^3/uL (0.0-0.7) Basophils # (Auto) 0.0 x10^3/uL (0.0-0.2) Iron Level 9 ug/dL (50-170) Total Iron Binding Capacity 288 ug/dL (250-450) Iron Saturation 3 % (15-34) Vitamin B12 Level 251 pg/mL (247-911) O2 Saturation 98 % (92-99) Arterial Blood pH 7.35 (7.35-7.45) Arterial Blood pCO2 at Patient Temp 38 mmHg (35-46) Arterial Blood pO2 at Patient Temp 148 mmHg (65-108) Arterial Blood HCO3 21 mmol/L (21-28) Arterial Blood Base Excess -5 mmol/L (-3-3) FiO2 40% Test 09/22/18 11:45 09/23/18 07:26 09/23/18 11:47 O2 Saturation 98 % (92-99) Arterial Blood pH 7.38 (7.35-7.45) Arterial Blood pCO2 at Patient Temp 35 mmHg (35-46) Arterial Blood pO2 at Patient Temp 147 mmHg (65-108) Arterial Blood HCO3 20 mmol/L (21-28) Arterial Blood Base Excess -5 mmol/L (-3-3) FiO2 40% Glucose (Fingerstick) 167 mg/dL (70-99) 152 mg/dL (70-99) Laboratory Tests Test 09/23/18 07:26 09/23/18 11:47 Glucose (Fingerstick) 167 mg/dL (70-99) 152 mg/dL (70-99) Medications Current Medications Etomidate (Amidate) 20 mg STK-MED ONCE IV ; Start 09/21/18 at 10:27; Stop 09/21/18 at 10:28; Status DC Succinylcholine Chloride (Anectine) 200 mg STK-MED ONCE .ROUTE ; Start 09/21/18 at 10:27; Stop 09/21/18 at 10:28; Status DC Midazolam HCl (Versed) 5 mg STK-MED ONCE .ROUTE ; Start 09/21/18 at 10:28; Stop 09/21/18 at 10:29; Status DC Propofol 50 ml @ As Directed STK-MED ONCE IV ; Start 09/21/18 at 10:40; Stop 09/21/18 at 10:41; Status DC Sodium Chloride 1,000 ml @ 1,000 mls/hr Q1H IV Last administered on 09/21/18at 11:11; Start 09/21/18 at 10:48; Stop 09/21/18 at 11:47; Status DC Methylprednisolone Sodium Succinate (SOLU-Medrol 125MG VIAL) 125 mg 1X ONCE IV Last administered on 09/21/18at 11:14; Start 09/21/18 at 11:00; Stop 09/21/18 at 11 :01; Status DC Albuterol/ Ipratropium (Duoneb) 3 ml 1X ONCE NEB Last administered on 09/21/18at 11:00; Start 09/21/18 at 11:00; Stop 09/21/18 at 11:01; Status DC Propofol (Diprivan) 200 mg 1X ONCE IV Last administered on 09/21/18at 10:45; Start 09/21/18 at 11:00; Stop 09/21/18 at 11:01; Status DC Midazolam HCl (Versed) 2 mg STK-MED ONCE .ROUTE ; Start 09/21/18 at 11:46; Stop 09/21/18 at 11:47; Status DC Etomidate (Amidate) 20 mg 1X ONCE IV Last administered on 09/21/18at 10:18; Start 09/21/18 at 12:00; Stop 09/21/18 at 12:04; Status DC Midazolam HCl (Versed) 5 mg 1X ONCE IV Last administered on 09/21/18at 10:30; Start 09/21/18 at 12:00; Stop 09/21/18 at 12:04; Status DC Midazolam HCl (Versed) 2 mg 1X ONCE IV Last administered on 09/21/18at 11:47; Start 09/21/18 at 12:00; Stop 09/21/18 at 12:04; Status DC Midazolam HCl 100 ml @ 0 mls/hr 1X ONCE IV Last administered on 09/21/18at 12:19; Start 09/21/18 at 12:00; Stop 09/21/18 at 12:04; Status DC Midazolam HCl (Versed) 2 mg 1X ONCE IV Last administered on 09/21/18at 12:47; Start 09/21/18 at 13:00; Stop 09/21/18 at 13:01; Status DC Fentanyl Citrate 30 ml @ 0 mls/hr CONT PRN IV SEE PROTOCOL Last administered on 09/22/18at 08:18; Start 09/21/18 at 13:00 Midazolam HCl 100 ml @ 0 mls/hr CONT PRN IV SEE PROTOCOL Last administered on 09/21/18at 22:55; Start 09/21/18 at 13:00 Doxycycline Hyclate 100 mg/ Dextrose 100 ml @ 50 mls/hr Q12HR IV ; Start 09/21/18 at 15:00; Stop 09/21/18 at 16:00; Status DC Enoxaparin Sodium (Lovenox 40mg Syringe) 40 mg QHS SQ ; Start 09/21/18 at 21:00; Stop 09/21/18 at 21:00; Status DC Albuterol Sulfate (Ventolin Neb Soln) 2.5 mg PRN Q2HR PRN NEB DYSPNEA Last administered on 09/23/18at 04:13; Start 09/21/18 at 14:45 Albuterol/ Ipratropium (Duoneb) 3 ml RTQID NEB Last administered on 09/23/18at 11:32; Start 09/21/18 at 16:00 Methylprednisolone Sodium Succinate (SOLU-Medrol 125MG VIAL) 80 mg Q8HRS IV Last administered on 09/23/18 05:59; Start 09/21/18 at 22:00; Stop 09/23/18 at 11:11; Status DC Doxycycline Hyclate 100 mg/ Dextrose 100 ml @ 50 mls/hr Q12HR IV Last administered on 09/23/18at 09:00; Start 09/21/18 at 19:00; Stop 09/23/18 at 13:51; Status DC Heparin Sodium (Porcine) (Heparin Sodium) 5,000 unit Q8HRS SQ ; Start 09/21/18 at 22:00; Stop 09/21/18 at 22:00; Status DC Famotidine (Pepcid Vial) 20 mg QHS IVP Last administered on 09/21/18at 22:08; Start 09/21/18 at 21:00; Stop 09/22/18 at 09:37; Status DC Famotidine (Pepcid Vial) 20 mg BID IVP Last administered on 09/23/18at 09:01; Start 09/22/18 at 21:00 Guaifenesin (Mucinex) 1,200 mg BID PO Last administered on 09/23/18 09:02; Start 09/22/18 at 21:00 Losartan Potassium (Cozaar) 25 mg DAILY PO Last administered on 09/23/18 09:01; Start 09/23/18 at 09:00 Levothyroxine Sodium (Synthroid) 50 mcg DAILY06 PO Last administered on 09/23/18 05:58; Start 09/23/18 at 06:00 Insulin Human Lispro (HumaLOG) 0-5 UNITS TIDWMEALS SQ Last administered on 09/23/18at 12:44; Start 09/22/18 at 17:00 Dextrose (Dextrose 50%-Water Syringe) 12.5 gm PRN Q15MIN PRN IV SEE COMMENTS; Start 09/22/18 at 14:15 Cyanocobalamin (Vitamin B-12) 1,000 mcg 1X ONCE IM Last administered on 09/22/18at 15:48; Start 09/22/18 at 14:15; Stop 09/22/18 at 14:16; Status DC Budesonide (Pulmicort) 0.5 mg RTBID NEB Last administered on 09/23/18at 07:36; Start 5/2/19 at 20:00 Ropinirole HCl (Requip) 0.25 mg HS PO Last administered on 09/22/18at 20:56; Start 09/22/18 at 21:00 Acetaminophen/ Aspirin/Caffeine (Excedrin Migraine) 1 tab PRN Q6HRS PRN PO MIGRAINE HEADACHE Last administered on 09/23/18at 11:49; Start 09/22/18 at 20:15 Montelukast Sodium (Singulair) 10 mg QHS PO ; Start 09/23/18 at 21:00 Magnesium Oxide (Magnesium Oxide) 400 mg TID PO Last administered on 09/23/18at 10:25; Start 09/23/18 at 10:30 Methylprednisolone Sodium Succinate (SOLU-Medrol 40MG VIAL) 40 mg Q8HRS IV ; Start 09/23/18 at 14:00 Doxycycline Hyclate (Vibra-Tab) 100 mg BID PO ; Start 09/23/18 at 21:00 Active Scripts Active Mucinex (Guaifenesin) 600 Mg Tablet.er 1,200 Mg PO BID Reported Levothyroxine Sodium 50 Mcg Tablet 1 Tab PO DAILY Losartan Potassium (Losartan Potassium) 25 Mg Tablet 1 Tab PO DAILY Vitals/I & O Vital Sign - Last 24 Hours 09/22/18 09/22/18 09/22/18 09/22/18 14:00 14:57 15:00 16:00 Pulse 103 101 Resp 16 16 B/P (MAP) 123/58 (79) 137/60 (85) Pulse Ox 97 97 97 O2 Delivery Room Air Nasal Cannula Room Air Nasal Cannula O2 Flow Rate 2.0 2.0 2.0 2.0 09/22/18 09/22/18 09/22/18 09/22/18 19:00 20:00 20:00 20:49 Temp 98.9 98.9 Pulse 108 100 Resp 20 18 B/P (MAP) 145/75 (98) 148/69 (95) Pulse Ox 96 96 97 O2 Delivery Nasal Cannula Nasal Cannula Nasal Cannula Nasal Cannula O2 Flow Rate 2.0 2.0 2.0 2.0 09/22/18 09/22/18 09/22/18 09/22/18 20:49 21:00 22:30 23:25 Pulse 114 112 112 Resp 20 22 20 B/P (MAP) 142/56 (84) 121/67 (85) 136/56 (82) Pulse Ox 97 96 98 97 O2 Delivery Nasal Cannula Nasal Cannula Nasal Cannula Nasal Cannula O2 Flow Rate 2.0 2.0 2.0 2.0 09/22/18 09/23/18 09/23/18 09/23/18 23:53 00:25 01:07 02:18 Temp 98.7 98.7 Pulse 108 114 103 Resp 20 16 B/P (MAP) 126/49 (74) 146/60 (88) 143/62 (89) Pulse Ox 96 92 93 O2 Delivery Nasal Cannula Nasal Cannula Nasal Cannula Nasal Cannula O2 Flow Rate 2.0 2.0 2.0 2.0 09/23/18 09/23/18 09/23/18 09/23/18 03:27 04:12 04:23 04:24 Temp 98.5 98.5 Pulse 98 106 Resp 20 B/P (MAP) 139/56 (83) 169/93 (118) Pulse Ox 95 97 93 O2 Delivery Nasal Cannula Nasal Cannula Nasal Cannula Nasal Cannula O2 Flow Rate 2.0 2.0 2.0 2.0 09/23/18 09/23/18 09/23/18 09/23/18 05:08 06:01 07:00 07:36 Temp 98.2 98.2 Pulse 89 98 97 Resp 20 B/P (MAP) 157/81 (106) 136/64 (88) 144/64 (90) Pulse Ox 98 95 96 O2 Delivery Nasal Cannula Nasal Cannula Nasal Cannula Nasal Cannula O2 Flow Rate 2.0 2.0 2.0 2.0 09/23/18 09/23/18 09/23/18 09/23/18 08:00 08:00 09:00 09:01 Pulse 97 103 Resp 18 18 B/P (MAP) 153/70 (97) 159/79 (105) 159/79 Pulse Ox 96 O2 Delivery Nasal Cannula Nasal Cannula Nasal Cannula O2 Flow Rate 2.0 2.0 2.0 09/23/18 09/23/18 09/23/18 09/23/18 10:00 11:00 11:33 12:00 Temp 98.4 98.4 Pulse 99 96 Resp 18 18 B/P (MAP) 157/68 (97) 151/71 (97) Pulse Ox 97 95 97 O2 Delivery Nasal Cannula Nasal Cannula Nasal Cannula Nasal Cannula O2 Flow Rate 2.0 2.0 2.0 2.0 09/23/18 09/23/18 12:00 13:00 Pulse 101 98 Resp 20 20 B/P (MAP) 150/65 (93) 161/66 (97) Pulse Ox 96 95 O2 Delivery Nasal Cannula Nasal Cannula O2 Flow Rate 22.0 2.0 Intake and Output 09/22/18 09/22/18 09/23/18 14:59 22:59 06:59 Intake Total 100 ml 240 ml 200 ml Output Total 160 ml 640 ml 350 ml Balance -60 ml -400 ml -150 ml Images Anemia- most likely chroinc disease, prior endoscopic evaluation negative , Hg stable, advance diet and activity, o/p endosocpy if patient wishes to revisit. Problem List Problems Medical Problems: (1) Acute respiratory failure Status: Acute (2) COPD (chronic obstructive pulmonary disease) Status: Acute (3) Hypercarbia Status: Acute NIKKY GLYNN MD September 23, 2018 13:59
[2018-09-23] MEDS: methylPREDNISolone SOD SUCC PF 40 MG/ML VIAL. IV SCH ×2 (14:13→21:14)
--- NOTE | 2018-09-23 17:45 | NUR ---
Patient transfer to room 506 per wheelchair with oxygen at 2 liters per NC. Patient transfer with all belongings, patient money in her pant pocket, she refused to put in her purse and put it in bag with other clothes and keeping bag at hand with her, she also has her purse and cellphone. Patient in chair with oxygen on at 2 liters per NC eating PM meal. This RN continues to take care of patient for this shift. Call light at hand, patient verb. understanding to call for assist up.
[2018-09-23] MEDS ORDERED: MONTELUKAST SODIUM 10 MG TABLET. PO SCH (21:00)
[2018-09-23] MEDS: DOXYCYCLINE HYCLATE 100 MG TABLET PO SCH (21:13)
[2018-09-23] MEDS: rOPINIRole 0.25 MG TABLET. PO SCH (21:14)
[2018-09-24 02:54] VITALS: BP 152/90
[2018-09-24] MEDS: methylPREDNISolone SOD SUCC PF 40 MG/ML VIAL. IV SCH (05:58)
[2018-09-24] MEDS: LEVOTHYROXINE 50 MCG TABLET PO SCH (05:59)
[2018-09-24] MEDS: ASA/APAP/CAFFEINE 250/250/65MG TABLET. PO PRN (05:59)
--- NOTE | 2018-09-24 06:28 | NUR ---
Patient IV/SL accidently can out and she refused to have an other one reinsert until she sees the Doctors because she feels that she can just take everything by Mouth and does not need another IV site any more.
[2018-09-24 07:00] VITALS: BP 152/74
[2018-09-24] MEDS: INSULIN LISPRO 300 UNITS/3 ML INSULN.PEN. SQ SCH ×2 (07:53→11:42)
[2018-09-24] MEDS: IPRATRPIUM/ALBUTEROL 0.5/2.5MG 3 ML NEBU. NEB SCH ×3 (07:56→15:51)
[2018-09-24] MEDS: BUDESONIDE 0.5 MG/2 ML NEBU. NEB SCH (07:56)
--- NOTE | 2018-09-24 08:06 | PDOC ---
PROGRESS NOTES Chief Complaint Chief Complaint Acute SEVERE hypercapnic hypoxemic respiratory failure - Acute exacerbation of chronic obstructive pulmonary disease - steroids, nebs Acute blood loss anemia - transfused 2u PRBC, GI consulted for fecal occult positive. B12, iron as well Leg cramps - mag oxide Urine retention - no history, will d/c streeter AVOID BENZOS History of Present Illness History of Present Illness 78-year-old female who appears somewhat younger than her stated age. She presented with respiratory failure. She has known COPD, although her states she has never smoked. He states that she got exposed to a lot of chemicals when she was younger. Enroute to ED she received several breathing treatments. When she was received at the ER, she was still hypoxic and was tiring out, had ABG with pH 7 and PCO2 of 92, was subsequently intubated. Noted with anemia, Hb 6.6 and occult blood positive. Pulm and GI consulted, admitted to ICU initially. 09/22: Seen sedated on vent this morning on AC with PEEP of 7 and FiO2 of 40%. Hb up to 8.3 s/p 2u PRBC. Extubated without event in afternoon Still coughing up a lot of yellow sputum. Still with streeter in place. Notes bad leg cramping now, has had success with drinking pickle juice in the past for this. Vitals Vitals Vital Signs Date Time Temp Pulse Resp B/P (MAP) Pulse Ox O2 Delivery O2 Flow Rate FiO2 09/24/18 02:54 98.1 88 18 152/90 (110) 98 Nasal Cannula 2.0 98.1 Physical Exam General: Alert, Oriented X3, Cooperative, No acute distress, mild distress Heart: Regular rate, Normal S1 Lungs: Clear, Wheezing Abdomen: Normal bowel sounds, Soft Extremities: No clubbing, No cyanosis, No edema Skin: No rashes, No breakdown Labs LABS Laboratory Tests Test 09/23/18 11:47 09/23/18 16:16 09/23/18 20:44 09/24/18 07:34 Glucose (Fingerstick) 152 mg/dL (70-99) 135 mg/dL (70-99) 129 mg/dL (70-99) 130 mg/dL (70-99) Assessment and Plan Assessmemt and Plan Problems Medical Problems: (1) Acute respiratory failure Status: Acute (2) COPD (chronic obstructive pulmonary disease) Status: Acute (3) Hypercarbia Status: Acute Comment Review of Relevant I have reviewed the following items arnulfo (where applicable) has been applied. Labs Laboratory Tests Test 09/22/18 08:40 09/22/18 11:45 09/23/18 07:26 09/23/18 11:47 O2 Saturation 98 % (92-99) 98 % (92-99) Arterial Blood pH 7.35 (7.35-7.45) 7.38 (7.35-7.45) Arterial Blood pCO2 at Patient Temp 38 mmHg (35-46) 35 mmHg (35-46) Arterial Blood pO2 at Patient Temp 148 mmHg (65-108) 147 mmHg (65-108) Arterial Blood HCO3 21 mmol/L (21-28) 20 mmol/L (21-28) Arterial Blood Base Excess -5 mmol/L (-3-3) -5 mmol/L (-3-3) FiO2 40% 40% Glucose (Fingerstick) 167 mg/dL (70-99) 152 mg/dL (70-99) Test 09/23/18 16:16 09/23/18 20:44 09/24/18 07:34 Glucose (Fingerstick) 135 mg/dL (70-99) 129 mg/dL (70-99) 130 mg/dL (70-99) Laboratory Tests Test 09/23/18 11:47 09/23/18 16:16 09/23/18 20:44 09/24/18 07:34 Glucose (Fingerstick) 152 mg/dL (70-99) 135 mg/dL (70-99) 129 mg/dL (70-99) 130 mg/dL (70-99) Medications Current Medications Etomidate (Amidate) 20 mg STK-MED ONCE IV ; Start 09/21/18 at 10:27; Stop 09/21/18 at 10:28; Status DC Succinylcholine Chloride (Anectine) 200 mg STK-MED ONCE .ROUTE ; Start 09/21/18 at 10:27; Stop 09/21/18 at 10:28; Status DC Midazolam HCl (Versed) 5 mg STK-MED ONCE .ROUTE ; Start 09/21/18 at 10:28; Stop 09/21/18 at 10:29; Status DC Propofol 50 ml @ As Directed STK-MED ONCE IV ; Start 09/21/18 at 10:40; Stop 09/21/18 at 10:41; Status DC Sodium Chloride 1,000 ml @ 1,000 mls/hr Q1H IV Last administered on 09/21/18at 11:11; Start 09/21/18 at 10:48; Stop 09/21/18 at 11:47; Status DC Methylprednisolone Sodium Succinate (SOLU-Medrol 125MG VIAL) 125 mg 1X ONCE IV Last administered on 09/21/18at 11:14; Start 09/21/18 at 11:00; Stop 09/21/18 at 11:01; Status DC Albuterol/ Ipratropium (Duoneb) 3 ml 1X ONCE NEB Last administered on 09/21/18at 11:00; Start 09/21/18 at 11:00; Stop 09/21/18 at 11:01; Status DC Propofol (Diprivan) 200 mg 1X ONCE IV Last administered on 09/21/18at 10:45; Start 09/21/18 at 11:00; Stop 09/21/18 at 11:01; Status DC Midazolam HCl (Versed) 2 mg STK-MED ONCE .ROUTE ; Start 09/21/18 at 11:46; Stop 09/21/18 at 11:47; Status DC Etomidate (Amidate) 20 mg 1X ONCE IV Last administered on 09/21/18at 10:18; Start 09/21/18 at 12:00; Stop 09/21/18 at 12:04; Status DC Midazolam HCl (Versed) 5 mg 1X ONCE IV Last administered on 09/21/18at 10:30; Start 09/21/18 at 12:00; Stop 09/21/18 at 12:04; Status DC Midazolam HCl (Versed) 2 mg 1X ONCE IV Last administered on 09/21/18at 11:47; Start 09/21/18 at 12:00; Stop 09/21/18 at 12:04; Status DC Midazolam HCl 100 ml @ 0 mls/hr 1X ONCE IV Last administered on 09/21/18at 12:19; Start 09/21/18 at 12:00; Stop 09/21/18 at 12:04; Status DC Midazolam HCl (Versed) 2 mg 1X ONCE IV Last administered on 09/21/18at 12:47; Start 09/21/18 at 13:00; Stop 09/21/18 at 13:01; Status DC Fentanyl Citrate 30 ml @ 0 mls/hr CONT PRN IV SEE PROTOCOL Last administered on 09/22/18at 08:18; Start 09/21/18 at 13:00 Midazolam HCl 100 ml @ 0 mls/hr CONT PRN IV SEE PROTOCOL Last administered on 09/21/18at 22:55; Start 09/21/18 at 13:00 Doxycycline Hyclate 100 mg/ Dextrose 100 ml @ 50 mls/hr Q12HR IV ; Start 09/21/18 at 15:00; Stop 09/21/18 at 16:00; Status DC Enoxaparin Sodium (Lovenox 40mg Syringe) 40 mg QHS SQ ; Start 09/21/18 at 21:00; Stop 09/21/18 at 21:00; Status DC Albuterol Sulfate (Ventolin Neb Soln) 2.5 mg PRN Q2HR PRN NEB DYSPNEA Last administered on 09/23/18at 04:13; Start 09/21/18 at 14:45 Albuterol/ Ipratropium (Duoneb) 3 ml RTQID NEB Last administered on 09/24/18at 07:56; Start 09/21/18 at 16:00 Methylprednisolone Sodium Succinate (SOLU-Medrol 125MG VIAL) 80 mg Q8HRS IV Last administered on 09/23/18at 05:59; Start 09/21/18 at 22:00; Stop 09/23/18 at 11:11; Status DC Doxycycline Hyclate 100 mg/ Dextrose 100 ml @ 50 mls/hr Q12HR IV Last administered on 09/23/18at 09:00; Start 09/21/18 at 19:00; Stop 09/23/18 at 13:51; Status DC Heparin Sodium (Porcine) (Heparin Sodium) 5,000 unit Q8HRS SQ ; Start 09/21/18 at 22:00; Stop 09/21/18 at 22:00; Status DC Famotidine (Pepcid Vial) 20 mg QHS IVP Last administered on 09/21/18at 22:08; Start 09/21/18 at 21:00; Stop 09/22/18 at 09:37; Status DC Famotidine (Pepcid Vial) 20 mg BID IVP Last administered on 09/23/18 21:12; Start 09/22/18 at 21:00 Guaifenesin (Mucinex) 1,200 mg BID PO Last administered on 09/23/18 21:13; Start 09/22/18 at 21:00 Losartan Potassium (Cozaar) 25 mg DAILY PO Last administered on 09/23/18 09:01; Start 09/23/18 at 09:00 Levothyroxine Sodium (Synthroid) 50 mcg DAILY06 PO Last administered on 09/24/18 05:59; Start 09/23/18 at 06:00 Insulin Human Lispro (HumaLOG) 0-5 UNITS TIDWMEALS SQ Last administered on 09/23/18 12:44; Start 09/22/18 at 17:00 Dextrose (Dextrose 50%-Water Syringe) 12.5 gm PRN Q15MIN PRN IV SEE COMMENTS; Start 09/22/18 at 14:15 Cyanocobalamin (Vitamin B-12) 1,000 mcg 1X ONCE IM Last administered on 09/22/18 15:48; Start 09/22/18 at 14:15; Stop 09/22/18 at 14:16; Status DC Budesonide (Pulmicort) 0.5 mg RTBID NEB Last administered on 09/24/18 07:56; Start 09/22/18 at 20:00 Ropinirole HCl (Requip) 0.25 mg HS PO Last administered on 09/23/18 21:14; Start 09/22/18 at 21:00 Acetaminophen/ Aspirin/Caffeine (Excedrin Migraine) 1 tab PRN Q6HRS PRN PO MIGRAINE HEADACHE Last administered on 09/24/18 05:59; Start 09/22/18 at 20:15 Montelukast Sodium (Singulair) 10 mg QHS PO Last administered on 09/23/18 21 :12; Start 09/23/18 at 21:00 Magnesium Oxide (Magnesium Oxide) 400 mg TID PO Last administered on 09/23/18 21:13; Start 09/23/18 at 10:30 Methylprednisolone Sodium Succinate (SOLU-Medrol 40MG VIAL) 40 mg Q8HRS IV Last administered on 09/24/18 05:58; Start 09/23/18 at 14:00 Doxycycline Hyclate (Vibra-Tab) 100 mg BID PO Last administered on 09/23/18at 21:13; Start 09/23/18 at 21:00 Active Scripts Active Mucinex (Guaifenesin) 600 Mg Tablet.er 1,200 Mg PO BID Reported Levothyroxine Sodium 50 Mcg Tablet 1 Tab PO DAILY Losartan Potassium (Losartan Potassium) 25 Mg Tablet 1 Tab PO DAILY Vitals/I & O Vital Sign - Last 24 Hours 09/23/18 09/23/18 09/23/18 09/23/18 09:00 09:01 10:00 11:00 Temp 98.4 98.4 Pulse 103 99 96 Resp 18 18 18 B/P (MAP) 159/79 (105) 159/79 157/68 (97) 151/71 (97) Pulse Ox 97 95 O2 Delivery Nasal Cannula Nasal Cannula Nasal Cannula O2 Flow Rate 2.0 2.0 2.0 09/23/18 09/23/18 09/23/18 09/23/18 11:33 12:00 12:00 13:00 Pulse 101 98 Resp 20 20 B/P (MAP) 150/65 (93) 161/66 (97) Pulse Ox 97 96 95 O2 Delivery Nasal Cannula Nasal Cannula Nasal Cannula Nasal Cannula O2 Flow Rate 2.0 2.0 22.0 2.0 09/23/18 09/23/18 09/23/18 09/23/18 14:00 15:21 17:41 19:00 Temp 98.3 98.5 99.2 98.3 98.5 99.2 Pulse 97 98 99 Resp 20 16 18 B/P (MAP) 163/84 (110) 163/78 (106) 173/92 (119) Pulse Ox 99 97 96 95 O2 Delivery Nasal Cannula Nasal Cannula Nasal Cannula Nasal Cannula O2 Flow Rate 2.0 2.0 2.0 2.0 09/23/18 09/23/18 09/23/18 09/24/18 20:00 20:02 22:43 02:54 Temp 98.7 98.1 98.7 98.1 Pulse 94 88 Resp 18 18 B/P (MAP) 153/79 (103) 152/90 (110) Pulse Ox 97 95 98 O2 Delivery Nasal Cannula Nasal Cannula Nasal Cannula Nasal Cannula O2 Flow Rate 2.0 2.0 2.0 2.0 Intake and Output 09/23/18 09/23/18 09/24/18 15:00 23:00 07:00 Intake Total 700 ml 130 ml Output Total 202 ml 301 ml 1825 ml Balance 498 ml -171 ml -1825 ml DOUG WALTERS MD September 24, 2018 08:06
[2018-09-24] MEDS: FAMOTIDINE 20 MG/2 ML VIAL IVP SCH (08:52)
[2018-09-24] MEDS: LOSARTAN POTASSIUM 25 MG TABLET. PO SCH (08:55)
[2018-09-24] MEDS: MAGNESIUM OXIDE 400 MG TABLET PO SCH ×2 (08:55→13:08)
[2018-09-24] MEDS: DOXYCYCLINE HYCLATE 100 MG TABLET PO SCH (08:55)
--- NOTE | 2018-09-24 10:26 | PDOC ---
PULMONARY PROGRESS NOTES Subjective EXTUBATED 09/22 DOING WELL Vitals Vital Signs Date Time Temp Pulse Resp B/P (MAP) Pulse Ox O2 Delivery O2 Flow Rate FiO2 09/24/18 08:55 88 152/74 09/24/18 08:30 98 Nasal Cannula 2.0 09/24/18 07:00 98.3 18 98.3 General: Alert, No acute distress HEENT: Other Lungs: Clear Cardiovascular: S1, S2 Abdomen: Soft, Non-tender Neuro Exam: Alert Extremities: No Edema Skin: Warm Labs Laboratory Tests Test 09/22/18 11:45 09/23/18 07:26 09/23/18 11:47 09/23/18 16:16 O2 Saturation 98 % (92-99) Arterial Blood pH 7.38 (7.35-7.45) Arterial Blood pCO2 at Patient Temp 35 mmHg (35-46) Arterial Blood pO2 at Patient Temp 147 mmHg (65-108) Arterial Blood HCO3 20 mmol/L (21-28) Arterial Blood Base Excess -5 mmol/L (-3-3) FiO2 40% Glucose (Fingerstick) 167 mg/dL (70-99) 152 mg/dL (70-99) 135 mg/dL (70-99) Test 09/23/18 20:44 09/24/18 07:34 Glucose (Fingerstick) 129 mg/dL (70-99) 130 mg/dL (70-99) Laboratory Tests Test 09/23/18 11:47 09/23/18 16:16 09/23/18 20:44 09/24/18 07:34 Glucose (Fingerstick) 152 mg/dL (70-99) 135 mg/dL (70-99) 129 mg/dL (70-99) 130 mg/dL (70-99) Medications Active Scripts Medications Dose Route/Sig Max Daily Dose Days Date Category Mucinex (Guaifenesin) 600 Mg Tablet.er 1,200 Mg PO BID 08/11/16 Rx Prednisone 20 Mg Tablet 40 Mg PO DAILY 08/11/16 Rx Levaquin (Levofloxacin) 250 Mg Tablet 250 Mg PO DAILY06 08/11/16 Rx Levothyroxine Sodium 50 Mcg Tablet 1 Tab PO DAILY 08/07/16 Reported Losartan Potassium 25 Mg Tablet 1 Tab PO DAILY 12/27/13 Reported Impression . 1. Acute hypercapnic hypoxemic respiratory failure. 2. Acute exacerbation of chronic obstructive pulmonary disease.(second hand exposure) 3. Acute blood loss anemia. Plan . 1. extubated 5/. doing well 2. Steroids taper 3. Nebulized treatments. 4. Doxycycline for atypical infection. 5. DVT and GI prophylaxis. 6. d/w RN 7. ID HOME PER PCP NASREEN ADAMS MD September 24, 2018 10:26
[2018-09-24 11:00] VITALS: BP 163/80
[2018-09-24] MEDS ORDERED: predniSONE 10 MG TABLET PO SCH (12:45)
--- NOTE | 2018-09-24 14:53 | RAD ---
EXAM: Chest CT without intravenous contrast. HISTORY: Respiratory failure. Pulmonary nodule. TECHNIQUE: Computed tomographic images of the chest were obtained without contrast. Multiplanar reformatting was performed. *One or more of the following individualized dose reduction techniques were utilized for this examination: 1. Automated exposure control. 2. Adjustment of the mA and/or kV according to patient size. 3. Use of iterative reconstruction technique. COMPARISON: Chest radiograph obtained on the same date. There is a CT angiogram performed 06/21/2017 which is not available for comparison at the time of dictation. FINDINGS: There is no pneumothorax. There are trace bilateral pleural effusions. There is biapical pleural-based nodularity due to pleural parenchymal scarring. There is linear opacity within the lateral left lower lobe likely due to atelectasis or scarring. There are groundglass nodular opacities within the right lower lobe likely due to interstitial infiltrate. There is a 1.6 cm pleural-based nodular opacity at the lateral left lung base and focal opacity within the lingula, possibly due to atelectasis, scarring or additional infiltrate. There is a large hiatal hernia. The heart is upper normal in size. There is trace pericardial fluid. There is coronary artery atherosclerosis. No pathologically enlarged lymph node is seen. 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 There are degenerative changes involving the spine. No suspicious osseous lesion is seen. IMPRESSION: 1. Groundglass nodular opacities within the right lower lobe suggesting pneumonia/pneumonitis. There is additional focal pleural-based opacity within the lingula and lateral left lung base which may be due to atelectasis, pleural parenchymal scarring or additional infiltrate. Follow-up to confirm resolution and exclude an underlying lesion. 2. Biapical pleural parenchymal scarring. 3. Trace pleural effusions. 4. Large hiatal hernia. Electronically signed by: Marcela Talbert MD (09/24/2018 2:50 PM) [id number]
--- NOTE | 2018-09-24 14:59 | PDOC3 ---
Discharge Summary Date of Admission: September 21, 2018 Date of Discharge: September 24, 2018 Follow-Up: 3-5 days Admitting Diagnosis comment: DISCHARGE DX Chief Complaint Acute SEVERE hypercapnic hypoxemic respiratory failure - Acute exacerbation of chronic obstructive pulmonary disease - steroids, nebs PNEUMONIA Acute blood loss anemia - transfused 2u PRBC, GI consulted for fecal occult positive. B12, iron as well Leg cramps - mag oxide Urine retention - no history, will d/c streeter AVOID BENZOS History of Present Illness History of Present Illness 78-year-old female who appears somewhat younger than her stated age. She presented with respiratory failure. She has known COPD, although her states she has never smoked. He states that she got exposed to a lot of chemicals when she was younger. Enroute to ED she received several breathing treatments. When she was received at the ER, she was still hypoxic and was tiring out, had ABG with pH 7 and PCO2 of 92, was subsequently intubated. Noted with anemia, Hb 6.6 and occult blood positive. Pulm and GI consulted, admitted to ICU initially. 09/22: Seen sedated on vent this morning on AC with PEEP of 7 and FiO2 of 40%. Hb up to 8.3 s/p 2u PRBC. Extubated without event in afternoon Still coughing up a lot of yellow sputum. Still with streeter in place. Notes bad leg cramping now, has had success with drinking pickle juice in the past for this. CT C/W PNEUMONIA 09/24 Vitals Vitals Vital Signs Date Time Temp Pulse Resp B/P (MAP) Pulse Ox O2 Delivery O2 Flow Rate FiO2 09/24/18 02:54 98.1 88 18 152/90 (110) 98 Nasal Cannula 2.0 98.1 Physical Exam General: Alert, Oriented X3, Cooperative, No acute distress, mild distress Heart: Regular rate, Normal S1 Lungs: Clear, Wheezing Abdomen: Normal bowel sounds, Soft Extremities: No clubbing, No cyanosis, No edema Skin: No rashes, No breakdown FINAL DIAGNOSIS Problems Medical Problems: (1) Acute respiratory failure Status: Acute (2) COPD (chronic obstructive pulmonary disease) Status: Acute (3) Hypercarbia Status: Acute Brief Hospital Course Ms. Flores is a 78 old [sex] who presented with [HYPERCAPNIC RESP FAILURE, SEVERE ] CONDITION AT DISCHARGE: Improved Discharge Medications Current Medications Etomidate (Amidate) 20 mg STK-MED ONCE IV ; Start 09/21/18 at 10:27; Stop 09/21/18 at 10:28; Status DC Succinylcholine Chloride (Anectine) 200 mg STK-MED ONCE .ROUTE ; Start 09/21/18 at 10:27; Stop 09/21/18 at 10:28; Status DC Midazolam HCl (Versed) 5 mg STK-MED ONCE .ROUTE ; Start 09/21/18 at 10:28; Stop 09/21/18 at 10:29; Status DC Propofol 50 ml @ As Directed STK-MED ONCE IV ; Start 09/21/18 at 10:40; Stop 09/21/18 at 10:41; Status DC Sodium Chloride 1,000 ml @ 1,000 mls/hr Q1H IV Last administered on 09/21/18at 11:11; Start 09/21/18 at 10:48; Stop 09/21/18 at 11:47; Status DC Methylprednisolone Sodium Succinate (SOLU-Medrol 125MG VIAL) 125 mg 1X ONCE IV Last administered on 09/21/18at 11:14; Start 09/21/18 at 11:00; Stop 09/21/18 at 11:01; Status DC Albuterol/ Ipratropium (Duoneb) 3 ml 1X ONCE NEB Last administered on 09/21/18at 11:00; Start 09/21/18 at 11:00; Stop 09/21/18 at 11:01; Status DC Propofol (Diprivan) 200 mg 1X ONCE IV Last administered on 09/21/18at 10:45; Start 09/21/18 at 11:00; Stop 09/21/18 at 11:01; Status DC Midazolam HCl (Versed) 2 mg STK-MED ONCE .ROUTE ; Start 09/21/18 at 11:46; Stop 09/21/18 at 11:47; Status DC Etomidate (Amidate) 20 mg 1X ONCE IV Last administered on 09/21/18at 10:18; Start 09/21/18 at 12:00; Stop 09/21/18 at 12:04; Status DC Midazolam HCl (Versed) 5 mg 1X ONCE IV Last administered on 09/21/18at 10:30; Start 09/21/18 at 12:00; Stop 09/21/18 at 12:04; Status DC Midazolam HCl (Versed) 2 mg 1X ONCE IV Last administered on 09/21/18at 11:47; Start 09/21/18 at 12:00; Stop 09/21/18 at 12:04; Status DC Midazolam HCl 100 ml @ 0 mls/hr 1X ONCE IV Last administered on 09/21/18at 12:19; Start 09/21/18 at 12:00; Stop 09/21/18 at 12:04; Status DC Midazolam HCl (Versed) 2 mg 1X ONCE IV Last administered on 09/21/18at 12:47; Start 09/21/18 at 13:00; Stop 09/21/18 at 13:01; Status DC Fentanyl Citrate 30 ml @ 0 mls/hr CONT PRN IV SEE PROTOCOL Last administered on 09/22/18at 08:18; Start 09/21/18 at 13:00 Midazolam HCl 100 ml @ 0 mls/hr CONT PRN IV SEE PROTOCOL Last administered on 09/21/18at 22:55; Start 09/21/18 at 13:00 Doxycycline Hyclate 100 mg/ Dextrose 100 ml @ 50 mls/hr Q12HR IV ; Start 09/21/18 at 15:00; Stop 09/21/18 at 16:00; Status DC Enoxaparin Sodium (Lovenox 40mg Syringe) 40 mg QHS SQ ; Start 09/21/18 at 21:00; Stop 09/21/18 at 21:00; Status DC Albuterol Sulfate (Ventolin Neb Soln) 2.5 mg PRN Q2HR PRN NEB DYSPNEA Last administered on 09/23/18at 04:13; Start 09/21/18 at 14:45 Albuterol/ Ipratropium (Duoneb) 3 ml RTQID NEB Last administered on 09/24/18at 11:41; Start 09/21/18 at 16:00 Methylprednisolone Sodium Succinate (SOLU-Medrol 125MG VIAL) 80 mg Q8HRS IV L ast administered on 09/23/18at 05:59; Start 09/21/18 at 22:00; Stop 09/23/18 at 11:11; Status DC Doxycycline Hyclate 100 mg/ Dextrose 100 ml @ 50 mls/hr Q12HR IV Last administered on 09/23/18 09:00; Start 09/21/18 at 19:00; Stop 09/23/18 at 13:51; Status DC Heparin Sodium (Porcine) (Heparin Sodium) 5,000 unit Q8HRS SQ ; Start 09/21/18 at 22:00; Stop 09/21/18 at 22:00; Status DC Famotidine (Pepcid Vial) 20 mg QHS IVP Last administered on 09/21/18at 22:08; Start 09/21/18 at 21:00; Stop 09/22/18 at 09:37; Status DC Famotidine (Pepcid Vial) 20 mg BID IVP Last administered on 09/23/18 21:12; Start 09/22/18 at 21:00 Guaifenesin (Mucinex) 1,200 mg BID PO Last administered on 09/24/18 08:55; Start 09/22/18 at 21:00 Losartan Potassium (Cozaar) 25 mg DAILY PO Last administered on 09/24/18 08:55; Start 09/23/18 at 09:00 Levothyroxine Sodium (Synthroid) 50 mcg DAILY06 PO Last administered on 09/24/18 t 05:59; Start 09/23/18 at 06:00 Insulin Human Lispro (HumaLOG) 0-5 UNITS TIDWMEALS SQ Last administered on 09/23/18 12:44; Start 09/22/18 at 17:00 Dextrose (Dextrose 50%-Water Syringe) 12.5 gm PRN Q15MIN PRN IV SEE COMMENTS; Start 09/22/18 at 14:15 Cyanocobalamin (Vitamin B-12) 1,000 mcg 1X ONCE IM Last administered on 09/22/18 15:48; Start 09/22/18 at 14:15; Stop 09/22/18 at 14:16; Status DC Budesonide (Pulmicort) 0.5 mg RTBID NEB Last administered on 09/24/18 07:56; Start 09/22/18 at 20:00 Ropinirole HCl (Requip) 0.25 mg HS PO Last administered on 09/23/18 21:14; Start 09/22/18 at 21:00 Acetaminophen/ Aspirin/Caffeine (Excedrin Migraine) 1 tab PRN Q6HRS PRN PO MIGRAINE HEADACHE Last administered on 09/24/18 05:59; Start 09/22/18 at 20:15 Montelukast Sodium (Singulair) 10 mg QHS PO Last administered on 09/23/18at 21:12; Start 09/23/18 at 21:00 Magnesium Oxide (Magnesium Oxide) 400 mg TID PO Last administered on 09/24/18at 13:08; Start 09/23/18 at 10:30 Methylprednisolone Sodium Succinate (SOLU-Medrol 40MG VIAL) 40 mg Q8HRS IV Last administered on 09/24/18 05:58; Start 09/23/18 at 14:00; Stop 09/24/18 at 12:48; Status DC Doxycycline Hyclate (Vibra-Tab) 100 mg BID PO Last administered on 09/24/18 08:55; Start 09/23/18 at 21:00 Prednisone (Prednisone) 30 mg DAILY PO Last administered on 09/24/18at 13:08; Start 09/24/18 at 12:45; Stop 09/25/18 at 09:01 Prednisone (Prednisone) 20 mg DAILY PO ; Start 09/26/18 at 09:00; Stop 09/27/18 at 09:01 Prednisone (Prednisone) 10 mg DAILY PO ; Start 09/28/18 at 09:00; Stop 09/29/18 at 09:01 Active Scripts Active Mucinex (Guaifenesin) 600 Mg Tablet.er 1,200 Mg PO BID Reported Levothyroxine Sodium 50 Mcg Tablet 1 Tab PO DAILY Losartan Potassium (Losartan Potassium) 25 Mg Tablet 1 Tab PO DAILY Vital Signs Vital Signs Date Time Temp Pulse Resp B/P (MAP) Pulse Ox O2 Delivery O2 Flow Rate FiO2 09/24/18 11:43 95 Room Air 09/24/18 11:00 98.5 90 20 163/80 (107) 2.0 98.5 Labs Laboratory Tests Test 09/23/18 07:26 09/23/18 11:47 09/23/18 16:16 09/23/18 20:44 Glucose (Fingerstick) 167 mg/dL (70-99) 152 mg/dL (70-99) 135 mg/dL (70-99) 129 mg/dL (70-99) Test 09/24/18 07:34 09/24/18 11:41 Glucose (Fingerstick) 130 mg/dL (70-99) 104 mg/dL (70-99) Laboratory Tests Test 09/23/18 16:16 09/23/18 20:44 09/24/18 07:34 09/24/18 11:41 Glucose (Fingerstick) 135 mg/dL (70-99) 129 mg/dL (70-99) 130 mg/dL (70-99) 104 mg/dL (70-99) Allergies Allergies Coded Allergies Type Severity Reaction Last Updated Verified Penicillins Allergy Intermediate 06/22/17 Yes Sulfa (Sulfonamide Antibiotics) Allergy Intermediate 06/22/17 Yes Disposition/Orders: D/C to Home w/ HH Patient Instructions SEE DR ADAMS NEXT WEEK D/C PLANNING 37 MIN DOUG WALTERS MD September 24, 2018 14:59
[2018-09-24 15:03] VITALS: BP 141/71
[2018-09-24] MEDS ORDERED: ROPI0.25 PO (15:06)
[2018-09-24] MEDS ORDERED: BUDE0.5A NEB (15:06)
[2018-09-24] MEDS ORDERED: DOXY100T PO (15:06)
[2018-09-24] MEDS ORDERED: PRED-220 PO (15:06)
[2018-09-24] MEDS ORDERED: IPRA3AMP29 NEB (15:06)
[2018-09-24] MEDS ORDERED: MAGN400T22 PO (15:06)
[2018-09-24] MEDS ORDERED: PRED20TA PO (15:06)
--- NOTE | 2018-09-24 15:07 | DISCH ---
DISCHARGE INSTRUCTIONS Condition on Discharge Condition on Discharge: Stable Activity After Discharge Activity Instructions for Disc: Activity as tolerated Lifting Instructions after Dis: No heavy lifting Exercise Instruction after Dis: Walk 10 min, 3 x per day, Exercise per therapy, Progress as tolerated Driving Instructions after Dis: Do not drive today Weight Bearing Status after Di: As tolerated Diet after Discharge Diet after Discharge: Cardiac, Regular Diet Texture: Regular Liquid Texture: Thin Liquid Swallowing Supervision: None needed Checks after Discharge Checks after discharge: Check blood press - daily Contacting the DR. after DC Call your doctor for: If your condition worsens Treatment/Equipment after DC Adaptive Equipment Issued: None Discharge Respiratory Equipmen: Oxygen DOUG WALTERS MD September 24, 2018 15:07
--- NOTE | 2018-09-24 17:32 | NUR ---
Discharge Note: NASIR ESCALONA Discharge instructions and discharge home medications reviewed with Patient and a copy given. All questions have been answered and understanding verbalized. The following instructions and handouts were given: Patient sent with information about new medication and follow ups. Discontinued lines and drains: Patient had Iv removed previous shift. No IV. Patient discharged home, picked up by son.
[2018-09-26] MEDS ORDERED: predniSONE 20 MG TABLET PO SCH (09:00)
[2018-09-28] MEDS ORDERED: predniSONE 10 MG TABLET PO SCH (09:00)
== END 2018-09-24 17:00 | disposition home or self-care (01) | DRG 208 ==
LOC: ER 10:12 → 1 WEST ICU 12:00 → 5 NORTH 09-23 17:48
PROVIDERS: ADMIT Internal Medicine; ATTEND Internal Medicine
PROC: 5A1945Z Respiratory Ventilation, 24-96 Consecutive Hours (ICD-10-PCS; principal; 2018-09-21)
PROC: 0BH17EZ Insertion of Endotracheal Airway into Trachea, Via Natural or Artificial Opening (ICD-10-PCS; 2018-09-21)
PROC: 30233N1 Transfusion of Nonautologous Red Blood Cells into Peripheral Vein, Percutaneous Approach (ICD-10-PCS; 2018-09-21)
DX: J96.01 Acute respiratory failure with hypoxia (principal); J18.9 Pneumonia, unspecified organism; D62 Acute posthemorrhagic anemia; J44.1 Chronic obstructive pulmonary disease with (acute) exacerbation; J44.0 Chronic obstructive pulmonary disease with (acute) lower respiratory infection; J96.02 Acute respiratory failure with hypercapnia; E03.9 Hypothyroidism, unspecified; F32.9 Major depressive disorder, single episode, unspecified; G25.81 Restless legs syndrome; I10 Essential (primary) hypertension; K44.9 Diaphragmatic hernia without obstruction or gangrene; Z87.11 Personal history of peptic ulcer disease; Z90.710 Acquired absence of both cervix and uterus; Z99.81 Dependence on supplemental oxygen; Z88.0 Allergy status to penicillin; Z88.2 Allergy status to sulfonamides
CPT/HCPCS: 31500; 36415; 36600; 71045; 71250; 80048; 80053; 80307; 82274; 82607; 82805; 82962; 83540; 83550; 83735; 84484; 85007; 85025; 85027; 85610; 86850; 86900; 86901; 86920; 93005; 94002; 94003; 94640; 94760; 96374; 99291; J1815; J2250; J2704; J2920; J2930; J3010; J3420; J3490; J7030; J7512; J7613; J7620; J7626; P9016; 97116